=== PATIENT | male | born 1995 | race Two or more races ===

== ENCOUNTER 2019-10-19 13:01 | Inpatient (IN) | payer OTHER ==
[~2019-10-19] VITALS: Ht 167.6 cm; Wt 56.7 kg
[2019-10-19] VITALS (7 sets, daily range): BP systolic 97–135; BP diastolic 64–111
--- NOTE | 2019-10-19 13:01 | NUR ---
[facility] FOR ALOC, VENT/TRACHE. NORMALLY RESPONDS FOUND TO BE ALOC, +DIAPHORETIC., pt to bed 7, pt is vent/trache dependent, placed on monitor, +tachy, -sob, pending er provider mj
--- NOTE | 2019-10-19 13:26 | NUR ---
PT. PLACED INTO [facility] VENT VIA TRACH SIZE #7 PORTEX WITH VENT SETTINGS BELOW PER RT TRANSPORTER: AC 16 VT 500 FIO2 30% PEEP + 5 BREATH SOUNDS COARSE RHONCHI BILATERAL VENT PLUGGED INTO RED OUTLET WITH ALARMS ON AND FUNCTIONAL. LATASHA @ BEDSIDE. Addendum: 10/19/19 at 1329 by SHIVANI HUMPHREY RT Amended: Links added.
[2019-10-19] MEDS ORDERED: IV NS 0.9% 1,000 ML BAG IV ONE (13:30)
[2019-10-19 13:52] LABS: BASOPHILS # (AUTO) 0.1 /CMM (0.0-0.2); BASOPHILS % (AUTO) 0.6 % (0.0-2.0); EOSINOPHILS % (AUTO) 3.3 % (0.0-6.0); HEMATOCRIT 43 % (39-51); HEMOGLOBIN 13.8 g/dL (13.5-17.5); LYMPHOCYTES # (AUTO) 2.9 /CMM (0.8-4.8); MEAN CORPUSCULAR HGB CONC 32 g/dl (31.0-36.0); MEAN CORPUSCULAR VOLUME 90 fL (80-96); MONOCYTES # (AUTO) 0.7 /CMM (0.1-1.30); MONOCYTES % (AUTO) 4.6 % (2.0-12.0); NEUTROPHILS % (AUTO) 72.5 % (43.0-81.0); PLATELET COUNT (AUTO) 469 /CMM (150-450); WHITE BLOOD COUNT (AUTO) 15.1 K/uL (4.3-11.0)
[2019-10-19 13:59] LABS: CALCIUM, SERUM 9.5 mg/dL (8.5-10.1); CARBON DIOXIDE 22 mmol/L (21-32); CHLORIDE 98 mmol/L (98-107); CREATININE 0.4 mg/dL (0.6-1.3); GLUCOSE 221 mg/dL (74-106); POTASSIUM 4.4 mmol/L (3.5-5.1); SODIUM SERUM 135 mmol/L (136-145); UREA NITROGEN, BLOOD 28 mg/dL (7-18)
[2019-10-19] MEDS ORDERED: FERR300L GT (14:04)
[2019-10-19] MEDS ORDERED: DOCU-141 GT (14:04)
[2019-10-19] MEDS ORDERED: ACET-2605 GT (14:04)
[2019-10-19] MEDS ORDERED: MULT-447 GT (14:04)
[2019-10-19] MEDS ORDERED: POLY17PO4 GT (14:04)
[2019-10-19] MEDS ORDERED: POTA20PA3 GT (14:04)
[2019-10-19] MEDS ORDERED: MELA1TAB15 GT (14:04)
[2019-10-19] MEDS ORDERED: ACET-868 GT (14:04)
[2019-10-19] MEDS ORDERED: BISA10SU11 RC (14:04)
[2019-10-19] MEDS ORDERED: CHLO118L6 TP (14:04)
[2019-10-19] MEDS ORDERED: MAGN400O6 GT (14:04)
[2019-10-19] MEDS ORDERED: NA P133E RC (14:04)
[2019-10-19] MEDS ORDERED: HEPA50008 SQ (14:04)
[2019-10-19] MEDS ORDERED: ONDA4TAB5 GT (14:04)
[2019-10-19] MEDS ORDERED: OMEP20CA15 GT (14:04)
[2019-10-19] MEDS ORDERED: VIT500LI GT (14:04)
[2019-10-19] MEDS ORDERED: NUT.237L25 GT (14:04)
[2019-10-19] MEDS ORDERED: CHLO473M5 MM (14:04)
[2019-10-19] MEDS ORDERED: ALBU2.5V38 IH (14:04)
[2019-10-19] MEDS ORDERED: AMIN30LI27 GT (14:04)
[2019-10-19] MEDS ORDERED: IPRA3AMP23 IH (14:04)
[2019-10-19 14:12] LABS: ALANINE AMINOTRANSFERASE 110 U/L (12-78); ALBUMIN 3.4 g/dL (3.4-5.0); ALKALINE PHOSPHATASE 187 U/L (46-116); ASPARTATE AMINOTRANSFERASE 90 U/L (15-37); BILIRUBIN,DIRECT 0.1 mg/dL (0.0-0.2); BILIRUBIN,TOTAL 0.5 mg/dL (0.2-1.0)
[2019-10-19] MEDS ORDERED: PIPERACILLIN /TAZOBACTAM 3.375 G in IV D5W 50 ML IV ONE (14:30)
[2019-10-19] MEDS ORDERED: VANCOMYCIN 1 GM in IV D5W 250 ML IV ONE (14:30)
--- NOTE | 2019-10-19 14:59 | NUR ---
verbal auth from kaleb cm; ok to admit inpatient
[2019-10-19] MEDS ORDERED: IV NS 0.9% 250 ML IV ONE (15:15)
[2019-10-19] MEDS ORDERED: IOHEXOL-300 100 ML VIAL IV ONE (15:15)
[2019-10-19] MEDS ORDERED: CT SWABBABLE VALVE TRANS SET 1 EA INFUS.SET MC ONE (15:15)
--- NOTE | 2019-10-19 15:20 | NUR ---
PT TO CT
--- NOTE | 2019-10-19 15:21 | NUR ---
PAGED [facility].
[2019-10-19 15:30] LABS: BILIRUBIN,URINE Negative (NEGATIVE); BLOOD, URINE Moderate Ery/uL (NEGATIVE); COLOR,URINE Yellow (YELLOW); KETONES,URINE Negative (NEGATIVE); LEUKOCYTE ESTERASE ,URINE Large (NEGATIVE); NITRITE, URINE Positive (NEGATIVE); PROTEIN,URINE >=300 mg/dl (NEGATIVE); UGLUCOSE Negative (NEGATIVE); UROBILINOGEN,URINE 0.2 EU/dL (0.2)
[2019-10-19 15:31] LABS: APPEARANCE,URINE CLOUDY (CLEAR); PH,URINE >9.0 (5.0-8.0)
[2019-10-19 15:35] LABS: C-REACTIVE PROTEIN 1.4 mg/dL (0.0-0.9)
[2019-10-19 15:44] LABS: CALCIUM OXALATE CRYSTALS,UR Moderate /HPF (None Seen)
[2019-10-19 15:45] LABS: BACTERIA,URINE Moderate /HPF (None Seen); SQUAMOUS EPITHELIAL CELL,UR Few /HPF (None Seen); URINE AMORPHOUS PHOSPHATES Few /HPF (None Seen)
--- NOTE | 2019-10-19 15:49 | NUR ---
NURSING SUP GAVE TELE BED 118-2.
--- NOTE | 2019-10-19 15:57 | NUR ---
report given to kim leggett for macy pt will be transported to 1st floor
--- NOTE | 2019-10-19 16:47 | NUR ---
per rojelio acoustical material worker, dr jang wants pt to upgrade to icu, called nursing sup for bed
--- NOTE | 2019-10-19 17:08 | NUR ---
NURSING SUP GAVE ICU BED 252.
--- NOTE | 2019-10-19 17:44 | NUR ---
REPORT GIVEN TO ANTONIO ALVARENGA FOR LLUVIA; PT WILL BE TRANSPORTED TO ICU
--- NOTE | 2019-10-19 18:19 | NUR ---
PT TRANSPORTED ICU
--- NOTE | 2019-10-19 18:30 | NUR ---
received pt from ER, AMS, does not follow commands, ST, on the vent, R lung 70% pneumothorax, SOB, no edema, GT clamped, f/c good output, no wounds, v/s stable, no pain, pt cleaned, changed and repositioned.
--- NOTE | 2019-10-19 19:10 | NUR ---
R chest tube inserted by Dr Fisher, connected to suction, xray called.
--- NOTE | 2019-10-19 19:15 | NUR ---
RN OPENING NOTES RECEIVED PT ON BED ASLEEP EASILY AROUSABLE, ON VENT/TRACH SETTING PER MD TOLERATED WELL NO SIGN AND SYMPTOMS OF RESPIRATORY DISTRESS, SPO2 98%, WITH PLEURAVAC CHEST TUBE ON R LAT CHEST CONNECTED TO SUCTION @ 20mmHg NO LEAKAGE OR BUBBLING NOTED, WITH GTUBE ON PLACED PATENT,AND ON PLACE, CONNECTED TO PLANNING ANALYST WITH READING SINUS TACH 110'S, WITH IV #20 ON L AC PATENT AND FLUSHED WELL NO INFILTRATION NOTED ON DROPLET ISOLATION R/O COVID PENDING RESULTS, V/S WNL, SAFETY MEASURE MAINTAINED BED ON LOWEST POSITION AND LOCKED SIDE RAILS UP X 3 CALL LIGHT WITHIN REACH WILL CONT TO MONITOR THE PT
--- NOTE | 2019-10-19 19:32 | NUR ---
RT NOTE PT RECEIVED TRACH'D WITH PORTEX 7 ON MECHANICAL VENT. PATIENT IS TOLERATING CURRENT ORDERED SETTINGS WITHOUT RESPIRATORY DISTRESS NOTED. TRACH IS PATENT AND SECURE. ALARMS ARE SET AND AUDIBLE. MECHANICAL VENT IS PLUGGED INTO RED OUTLET. EMERGENCY EQUIPMENT IS AT PATIENT BEDSIDE. WILL CONTINUE TO MONITOR. Addendum: 10/19/19 at 2044 by CHAYA MÉNDEZ RT Amended: Links added.
[2019-10-19] MEDS ORDERED: FEE PK DOSING 1 MIN EA MC ONE (19:57)
--- NOTE | 2019-10-19 20:15 | NUR ---
RN NOTES NOTICED PT HR INCREASED TO 150'S AND PT IS GRIMACING, SUSPECTED PAIN, CALLED PAINT ROLLER COVER MACHINE SETTER AMY LOUIS NP AND INFORMED HIM ABOUT THE PT WITH ORDER FOR PAIN MEDS NOTED AND CARRIED OUT
[2019-10-19 20:31] LABS: ABG BASE EXCESS -0.8 mmol/L; ABG OXYGEN SATURATION 97.2 % (92.0-98.5); ABG PH 7.434 (7.350-7.450); ABG PO2 100.9 mmHg (75.0-100.0); AaDO2 71.9 mmHg; COHb 0.2 % (0.5-1.5); MetHb 0.5 % (0.0-1.5); O2Hb 96.5 % (94.0-97.0); SITE, ABG Left Radial
[2019-10-19] MEDS: MORPHINE SULFATE INJ 2 MG/ML DISP.SYRIN IV PRN (20:34)
--- NOTE | 2019-10-19 21:20 | NUR ---
PATIENT ACCOUNT REPRESENTATIVE NOTES CRITICAL LAB RESULTS TROPONIN I 8.353 TRENDING UP LACTIC ACID 2.2 RELAYED TO DONATION SPECIALIST AMY LOUIS VISUAL STYLIST WITH ORDER MADE AND CARRIED OUT
--- NOTE | 2019-10-19 21:45 | NUR ---
TRACK INSPECTING SUPERVISOR NOTES HEPARIN STARTED WITH 2800 UNITS BOLUS AND HEPARIN DRIP 600 UNIT/HR INITIAL PTT 24.8 SECS
[2019-10-19] MEDS ORDERED: IV NS 0.9% 1,000 ML IV PRN (22:00)
[2019-10-19] MEDS ORDERED: HEPARIN INFUSION/D5W 500 ML IV PRN (22:00)
[2019-10-19] MEDS ORDERED: HEPARIN INFUSION/D5W 500 ML IV ONE (22:08)
[2019-10-19] MEDS: ASPIRIN EC 81 MG TABLET.DR PO SCH (22:14)
[2019-10-19] MEDS: CARVEDILOL 6.25 MG TABLET GT SCH (22:15)
[2019-10-19] MEDS: PIPERACILLIN /TAZOBACTAM 3.375 G in IV D5W 50 ML IV SCH (22:15)
[2019-10-19] MEDS ORDERED: HEPARIN SODIUM, PORCINE 5000 UNITS/1 ML VIAL IV ONE (22:30)
[2019-10-20] VITALS (43 sets, daily range): BP systolic 84–133; BP diastolic 47–101
[2019-10-20] MEDS: IV NS 0.9% 1,000 ML IV PRN ×2 (00:10→15:49)
[2019-10-20] MEDS: VANCOMYCIN 1.25 GM in IV D5W 250 ML IV SCH ×3 (00:10→16:00)
--- NOTE | 2019-10-20 00:15 | NUR ---
RN NOTES CRITICAL LAB VALUE TROPONIN I 6.805 WAS RELAYED TO COUNTY SHERIFF AMY LOUIS NP, TRENDING DOWN FROM 8.353 WITH NO NEW ORDER
[2019-10-20 04:35] LABS: BASOPHILS # (AUTO) 0.1 /CMM (0.0-0.2); BASOPHILS % (AUTO) 0.3 % (0.0-2.0); HEMATOCRIT 32 % (39-51); HEMOGLOBIN 10.6 g/dL (13.5-17.5); LYMPHOCYTES # (AUTO) 0.8 /CMM (0.8-4.8); LYMPHOCYTES % (AUTO) 4.4 % (20.0-44.0); MEAN CORPUSCULAR HGB CONC 33 g/dl (31.0-36.0); MEAN CORPUSCULAR VOLUME 89 fL (80-96); MONOCYTES # (AUTO) 0.7 /CMM (0.1-1.30); MONOCYTES % (AUTO) 4.1 % (2.0-12.0); NEUTROPHILS # (AUTO) 16.4 /CMM (1.8-8.9); NEUTROPHILS % (AUTO) 91.2 % (43.0-81.0); PLATELET COUNT (AUTO) 290 /CMM (150-450); RED BLOOD CELL COUNT(AUTO) 3.62 MIL/uL (4.5-6.0)
[2019-10-20 04:44] LABS: CALCIUM, SERUM 8.8 mg/dL (8.5-10.1); CREATININE 0.3 mg/dL (0.6-1.3)
--- NOTE | 2019-10-20 04:45 | NUR ---
RN NOTES NOTICE THAT THERES A BLOODY SECRETION SUCTIONED TO THE TRACH OF THE PT AROUND 50ML FRESH BLOOD, METAL ROOFER HERIBERTO REYES WEB MARKETING COORDINATOR NOTIFY WITH ORDERS TO HOLD HEPARIN DRIP UNTIL FURTHER ORDERS NOTED AND CARRIED OUT
[2019-10-20] MEDS ORDERED: ACETAMINOPHEN 650 MG/20.3 ML UDC GT PRN (05:30)
[2019-10-20] MEDS: MORPHINE SULFATE INJ 2 MG/ML DISP.SYRIN IV PRN (05:42)
[2019-10-20] MEDS: PIPERACILLIN /TAZOBACTAM 3.375 G in IV D5W 50 ML IV SCH ×3 (05:43→17:06)
--- NOTE | 2019-10-20 06:15 | NUR ---
RN NOTES TALK TO MERCHANDISING ASSISTANT AMY LOUIS REGARDING THE HEPARIN DRIP OF THE PT HE SAID TO RESTART IT AND FOLLOW PROTOCOL, PTT 35.9, HEPARIN DRIP TO BE RUN @ 700UNITS/HR NOTED AND CARRIED OUT Addendum: 10/20/19 at 0636 by DALILA JOYCE RN AMY LOUIS VERIFICATION CLERK AWARE THAT THERES STILL A MINIMAL BLEEDING ON PT TRACH
--- NOTE | 2019-10-20 06:44 | NUR ---
RN CLOSING NOTES PT SLEEPING ON BED NO SIGN AND SYMPTOMS OF RESPIRATORY DISTRESS, SPO2 98% ON TRACH/VENT SETTING PER MD, CHEST TUBE IS ON PLACE NO LEAKAGE NOTED CONNECTED TO SUCTION @ 20 mmHg with SEROSANGUINOS DRAINAGE @ 50ML, ON HEPARIN DRIP @ 700UNIT/HR, ON TELE WITH READING SINUS TACHY 90'S-110'S DROPLET ISOLATION MAINTAINED AND OBSERVED SAFETY PRECAUTION MAINTAINED BED ON LOWEST POSITION AND LOCKED CALL LIGHT WITHIN REACH, SIDE RAILS UP X3, ALL NEEDS ATTENDED WILL ENDORSE TO AM SHIFT NURSE
[2019-10-20] MEDS: CARVEDILOL 6.25 MG TABLET GT SCH ×2 (08:02→21:41)
[2019-10-20] MEDS: ASPIRIN EC 81 MG TABLET.DR PO SCH (08:03)
[2019-10-20 08:14] LABS: ABG BASE EXCESS -0.7 mmol/L; ABG OXYGEN SATURATION 97.6 % (92.0-98.5); ABG PCO2 31.7 mmHg (35.0-45.0); ABG PH 7.468 (7.350-7.450); ABG PO2 108.7 mmHg (75.0-100.0); COHb 0.3 % (0.5-1.5); MetHb 0.5 % (0.0-1.5); O2Hb 96.8 % (94.0-97.0); PEEP,BG 5 cm H2O; SITE, ABG Right Radial; VENT MODE, BG AC 16 500; VT, ABG 500 mL
[2019-10-20] MEDS ORDERED: POTASSIUM CHLORIDE 20 MEQ POWDER PACKET GT SCH (08:30)
[2019-10-20 09:13] LABS: THYROID STIMULATING HORMONE 0.561 uIU/mL (0.358-3.74)
--- NOTE | 2019-10-20 09:29 | NUR ---
received pt from shift leader, lethargic, ST, SR, on the vent, lungs congested no edema, R chest tube no leak noted, NPO, f/c good output, GT clamped, on heparin drip at 700unit, some blood from the trach, Dr Moore is aware still OK to continue heparin drip, v/s stable, no pain, pt turned and repositioned.
[2019-10-20] MEDS: ACETAMINOPHEN 650 MG/20.3 ML UDC NG PRN (15:50)
--- NOTE | 2019-10-20 16:33 | NUR ---
RT NOTE: PATIENT RECEIVED WITH #7 PORTEX TRACH ON MECHANICAL VENT. ALARMS VERIFIED AND AUDIBLE. SUCTIONED MODERATE-LARGE AMOUNT OF THIN BLOODY SECRETIONS. RN(KIM) AWARE. VENT PLUGGED INTO RED OUTLET. AMBU BAG AT [facility].
--- NOTE | 2019-10-20 16:36 | NUR ---
pt is resting in the bed, drowsy, ST, SR, on the vent, sat well, no edema, R chest tube bloody residual, heparin drip stopped per MD, f/c OK output, v/s stable, no pain, covid 19 negative, pt cleaned, changed and repositioned.
--- NOTE | 2019-10-20 19:00 | NUR ---
Received patient with tracheostomy to the ventilator on AC mode,not in any distress.Patient awake,but does not seem to understand and does not follow commands.Contracted extremities ,but moves both arms but weak , lower extremities twisted/contracted. Chest tube @ right lateral chest to Pleurovac to suction , with serous drainage,chest tube site noted with bleeding ,dressing saturated with blood. (Patient was on Heparin drip, already discontinued). Will continue to monitor chest tube site.
[2019-10-20] MEDS ORDERED: CELLULOSE,OXIDIZED 1 EACH EACH MC PRN (20:00)
--- NOTE | 2019-10-20 22:00 | NUR ---
Noted occasional episodes of tachycardia 120's-130's ,but converts back to SR in the 90's(not sustaining)
[2019-10-21] VITALS (25 sets, daily range): BP systolic 80–126; BP diastolic 42–94
--- NOTE | 2019-10-21 | NUR ---
STATU UNCHANGED.CHETS TUBE SITE STILL WITH BLEEDING,SURGICEL APPLIED.
[2019-10-21] MEDS: PIPERACILLIN /TAZOBACTAM 3.375 G in IV D5W 50 ML IV SCH ×4 (00:32→17:40)
--- NOTE | 2019-10-21 04:00 | NUR ---
STABLE,AWAKE.NOT IN ANY DISTRESS.AM BATH DONE,CHEST TUBE DRESSING CHANGED,STILL WITH BLEDING AT CHEST TUBE INSERTION SITE,SURGICEL/HEMOSTAT APPLIED.
[2019-10-21 04:34] LABS: BASOPHILS # (AUTO) 0.1 /CMM (0.0-0.2); BASOPHILS % (AUTO) 0.5 % (0.0-2.0); EOSINOPHILS % (AUTO) 0.2 % (0.0-6.0); HEMATOCRIT 28 % (39-51); LYMPHOCYTES # (AUTO) 0.8 /CMM (0.8-4.8); LYMPHOCYTES % (AUTO) 6.5 % (20.0-44.0); MEAN CORPUSCULAR HGB CONC 33 g/dl (31.0-36.0); MEAN CORPUSCULAR VOLUME 90 fL (80-96); MONOCYTES # (AUTO) 0.8 /CMM (0.1-1.30); MONOCYTES % (AUTO) 6.2 % (2.0-12.0); NEUTROPHILS # (AUTO) 11.3 /CMM (1.8-8.9); NEUTROPHILS % (AUTO) 86.6 % (43.0-81.0); PLATELET COUNT (AUTO) 259 /CMM (150-450); RED BLOOD CELL COUNT(AUTO) 3.06 MIL/uL (4.5-6.0)
[2019-10-21 04:45] LABS: ALBUMIN 2.7 g/dL (3.4-5.0); BILIRUBIN,DIRECT 0.2 mg/dL (0.0-0.2); BILIRUBIN,TOTAL 1.1 mg/dL (0.2-1.0); CALCIUM, SERUM 8.7 mg/dL (8.5-10.1); CREATININE 0.6 mg/dL (0.6-1.3); MAGNESIUM 2.2 mg/dL (1.8-2.4); PHOSPHORUS 5.7 mg/dL (2.5-4.9); POTASSIUM 4.6 mmol/L (3.5-5.1); TOTAL PROTEIN, SERUM 7.2 g/dL (6.4-8.2)
[2019-10-21] MEDS: IV NS 0.9% 1,000 ML IV PRN (05:54)
--- NOTE | 2019-10-21 07:00 | NUR ---
REMAINS STABLE,REPORT GIVEN TO ANTONIO ALVARENGA
--- NOTE | 2019-10-21 08:14 | NUR ---
received pt from night filler, alert, does not follows commands, non verbal, SR, ST, chronic V/T, R chest tube, pneumothorax resolved, sat well, f/c OK output, GT clamped, v/s stable, no pain, pt turned and repositioned.
[2019-10-21] MEDS: ENOXAPARIN SODIUM 40 MG/0.4 ML DISP.SYRIN SQ SCH (08:27)
[2019-10-21] MEDS: CARVEDILOL 6.25 MG TABLET GT SCH ×2 (08:28→22:08)
[2019-10-21] MEDS: ASPIRIN EC 81 MG TABLET.DR PO SCH (08:28)
--- NOTE | 2019-10-21 11:15 | NUR ---
pt transferred to [facility], ACLS followed, v/s stable, no pain, report given to
--- NOTE | 2019-10-21 11:30 | NUR ---
[facility] RN Notes Received patient from ICU transfer. Patient in stable condition. Chest tube to wall suction -20mmHg on the chest tube. Serosanguineous discharge. No crepitus on palpation. Connected to vent. Assist control 16 TV 450mL FIO2 3-% PEEP 5. Patient is sinus tach. G-Tube clamped. NPO c Meds. Skin intact. IV RAC 20g and LAC 20g, flushing well and patient. NS 0.9% at 80mL per hour. Will continue to monitor.
--- NOTE | 2019-10-21 19:00 | NUR ---
[facility] RN Notes Patient is in bed resting comfortably. No signs of distress. Informed provider of tachycardia 130s 140s. Recieved order from Wilver Lazcano to increase IV fluid rate to 100mL per hour. Glucose check to r/o tachycardia cause was 81mg/dL WNL. Afebrile 98.2. Pharmacy holding vanco due to elevated trough of 26. No additional CT OP. To be endorsed to night auditor.
--- NOTE | 2019-10-21 22:08 | NUR ---
TELE-TD/CAREER DEVELOPMENT CONSULTANT ASSISTED PT WITH FACETIME CALL WITH HIS FAMILY. FAMILY SPOKE WITH THE PT BRIEFLY. THEN CALLED ME AT THE NURSES STATION TO LET ME KNOW THAT HE ISN'T AT THE BASELINE ORIENTATION. I DISCUSSED WITH THE FAMILY MY PREVIOUS ASSESSMENT OF THE PT AND HIS CURRENT BASELINE. I PAGED TO GIVE UPDATE BASED ON FAMILIES CONCERN. WILL CONTINUE TO MONITOR.
[2019-10-22] VITALS (8 sets, daily range): BP systolic 95–125; BP diastolic 51–75
[2019-10-22] MEDS: PIPERACILLIN /TAZOBACTAM 3.375 G in IV D5W 50 ML IV SCH ×4 (00:11→17:41)
[2019-10-22] MEDS: IV NS 0.9% 1,000 ML IV PRN ×2 (01:52→06:15)
--- NOTE | 2019-10-22 04:46 | NUR ---
RT NOTE Pt rec'd trached on [facility] vent on AC mode settings as charted. pt shows no signs of resp distress or sob. trach is patent and secured. sx'd for thick small amt of blood tinged secretions. alarms are set and audible. vent plugged into red outlet. Ambu bag bedside. Will continue to monitor closely. Addendum: 10/22/19 at 0447 by LATANYA EUCEDA RT Amended: Links added.
[2019-10-22] MEDS ORDERED: PIPERACILLIN /TAZOBACTAM 3.375 G VIAL IV ONE (05:15)
[2019-10-22 08:44] LABS: BASOPHILS % (AUTO) 0.1 % (0.0-2.0); HEMATOCRIT 30 % (39-51); HEMOGLOBIN 9.8 g/dL (13.5-17.5); LYMPHOCYTES # (AUTO) 0.7 /CMM (0.8-4.8); LYMPHOCYTES % (AUTO) 3.9 % (20.0-44.0); MEAN CORPUSCULAR HGB CONC 33 g/dl (31.0-36.0); MEAN CORPUSCULAR VOLUME 90 fL (80-96); MONOCYTES # (AUTO) 1.4 /CMM (0.1-1.30); MONOCYTES % (AUTO) 7.3 % (2.0-12.0); NEUTROPHILS # (AUTO) 16.7 /CMM (1.8-8.9); NEUTROPHILS % (AUTO) 88.7 % (43.0-81.0); PLATELET COUNT (AUTO) 366 /CMM (150-450); WHITE BLOOD COUNT (AUTO) 18.9 K/uL (4.3-11.0)
[2019-10-22 08:46] LABS: CALCIUM, SERUM 9.6 mg/dL (8.5-10.1); CREATININE 0.7 mg/dL (0.6-1.3); MAGNESIUM 2.3 mg/dL (1.8-2.4); PHOSPHORUS 5.6 mg/dL (2.5-4.9); POTASSIUM 3.5 mmol/L (3.5-5.1)
[2019-10-22 09:05] LABS: ALBUMIN 2.8 g/dL (3.4-5.0); BILIRUBIN,DIRECT 0.3 mg/dL (0.0-0.2); BILIRUBIN,TOTAL 1.1 mg/dL (0.2-1.0); TOTAL PROTEIN, SERUM 7.7 g/dL (6.4-8.2)
[2019-10-22] MEDS: ASPIRIN EC 81 MG TABLET.DR PO SCH (09:37)
[2019-10-22] MEDS: CARVEDILOL 6.25 MG TABLET GT SCH ×2 (09:38→21:13)
[2019-10-22] MEDS: ENOXAPARIN SODIUM 40 MG/0.4 ML DISP.SYRIN SQ SCH (09:42)
[2019-10-22] MEDS ORDERED: VANCOMYCIN 1 GM in IV D5W 250 ML IV SCH (11:00)
[2019-10-22] MEDS ORDERED: CEFEPIME 1 GM in IV D5W 50 ML IV SCH (19:30)
--- NOTE | 2019-10-22 20:00 | NUR ---
[facility] RN Note: Pt A/O X1 to person, but non-verbal. Tracks with eyes. Patient in stable condition. Chest tube to wall suction -20mmHg on the chest tube. Serosanguineous discharge. No crepitus on palpation. PORTEX #7 Trach connected to vent. Assist control: 16; TV: 450mL; FIO2: 30%; PEEP: 5. Noted ST on athletic monitor with VH=267. G-Tube clamped. No residual noted. NPO. Skin intact. PIV to Right AC: 20 gauge and Left FA 20 gauge, both flushing well and patent. No distress noted. ALL safety precautions in place. Monitoring continued.
--- NOTE | 2019-10-22 20:03 | NUR ---
RT NOTE Pt rec'd trached on [facility] vent on AC mode settings as charted. pt shows no signs of resp distress or sob. trach is patent and secured. sx'd for thick small amt of blood tinged secretions. alarms are set and audible. vent plugged into red outlet. Ambu bag bedside. Will continue to monitor closely. Addendum: 10/22/19 at 2004 by LATANYA EUCEDA RT Amended: Links added.
--- NOTE | 2019-10-22 21:30 | NUR ---
[facility] RN NOTE: Assisted pt with Facetime call with his family. Family spoke with patient for about an hour. Multiple family members called this nurse. Spoke with Pt's mother briefly, but informed her that no one here is fluent in [place]. Also spoke with pt's aunt and notified her that I spoke with pt's brother, Nba, re: update of pt's care. Nba gave this nurse the code to pt's iPAD: 1026. Nba notified this nurse that pt's mouth is not usually wide open and pt's arms are not usually flaccid. bNa also notified this nurse that he and his family has been trying to speak with the Doctor all day re: the reason why pt is not at baseline re: body movements, but MD did not respond. Discussed with family this nurse's current assessment of pt and that this nurse notified Charge nurse of the same and will strongly encourage MD to speak with Family tomorrow morning re: family's concerns. Pt care and Monitoring continued.
[2019-10-22] MEDS ORDERED: CEFEPIME 1 GM VIAL ONE (23:29)
[2019-10-23] VITALS (7 sets, daily range): BP systolic 95–138; BP diastolic 51–80
[2019-10-23 06:39] LABS: BASOPHILS % (AUTO) 0.3 % (0.0-2.0); EOSINOPHILS % (AUTO) 0.1 % (0.0-6.0); HEMATOCRIT 28 % (39-51); LYMPHOCYTES % (AUTO) 6.6 % (20.0-44.0); MEAN CORPUSCULAR HGB CONC 33 g/dl (31.0-36.0); MEAN CORPUSCULAR VOLUME 89 fL (80-96); MONOCYTES # (AUTO) 1.2 /CMM (0.1-1.30); MONOCYTES % (AUTO) 7.8 % (2.0-12.0); NEUTROPHILS # (AUTO) 12.6 /CMM (1.8-8.9); NEUTROPHILS % (AUTO) 85.2 % (43.0-81.0); PLATELET COUNT (AUTO) 387 /CMM (150-450); RED BLOOD CELL COUNT(AUTO) 3.11 MIL/uL (4.5-6.0); WHITE BLOOD COUNT (AUTO) 14.7 K/uL (4.3-11.0)
[2019-10-23 07:07] LABS: CALCIUM, SERUM 9.2 mg/dL (8.5-10.1); CREATININE 0.6 mg/dL (0.6-1.3); PHOSPHORUS 4.2 mg/dL (2.5-4.9)
--- NOTE | 2019-10-23 07:30 | NUR ---
[facility] RN Note: Pt remains A/O X1 to person, but non-verbal. Pt tries to move mouth to mouth words. Tracks with eyes. Patient in stable condition. Chest tube to wall suction -20mmHg on the chest tube. Only 5 cc output for this shift (serosanguineous drainage). No crepitus on palpation during shift. PORTEX #7 Trach connected to vent. Assist control: 16; TV: 450mL; FIO2: 30%; PEEP: 5. Noted SR on cardiac cath technician with HR=95. G-Tube remains clamped. No residual noted. Pt remains NPO. Skin intact. Pt turned and repositioned every 2 hours. Pt had small loose BM. Pt cleaned. Linens changed. PIV to Right AC: 20 gauge and Left FA 20 gauge, both remain flushing well and patent. No distress noted during shift. ALL safety precautions maintained during shift. Pt safety maintained during shift. SBAR report given to LYLE Bello for continuity of care.
[2019-10-23 07:50] LABS: POTASSIUM 2.2 mmol/L (3.5-5.1)
--- NOTE | 2019-10-23 08:00 | NUR ---
technician telecommunication systems notes Received patient alert and awake, non-verbal. patient has trach to vent setting , ambu bag at bedside. On tele monitor, ST, HR-107. Right side chest tube in place with light bloody daring on Lovenox and asa ,dr noyola notified , lt ac ,stated ok to give both , also aware that k2.2 will give order for k , patient with g tube clumped no residual noted , Left AC and left FA HL intact, flushes well but noted with swelling, will keep elevated. Bed in lowest position. All needs attende d. Will cont to monitor
[2019-10-23] MEDS: ASPIRIN EC 81 MG TABLET.DR PO SCH (08:12)
[2019-10-23] MEDS: CARVEDILOL 6.25 MG TABLET GT SCH ×2 (08:12→21:47)
[2019-10-23] MEDS: ENOXAPARIN SODIUM 40 MG/0.4 ML DISP.SYRIN SQ SCH (08:13)
[2019-10-23] MEDS: POTASSIUM CHLORIDE 20 MEQ POWDER PACKET NG SCH ×6 (08:37→13:43)
[2019-10-23] MEDS: CEFEPIME 2 GM in IV D5W 100 ML IV SCH ×2 (08:39→21:47)
--- NOTE | 2019-10-23 10:27 | NUR ---
telephone betting clerk note chest x arlette done as ordered
--- NOTE | 2019-10-23 11:38 | NUR ---
telephone interceptor operator note new mid line on rt upper arm ray 18 inserted by picc line nurse
--- NOTE | 2019-10-23 12:24 | NUR ---
newspaper subscription solicitor nurse Spoke with ADELE Weeks aware that G-tube site is leaking and OK to hold off feeding. LOSS PREVENTION MANAGER aware that bloody drainage in chest tube. left upper arm swelling stated that will order doppler ultrasound. Potassium 2.2 and replacement been given. Pleural fluid results reported to LOSS PREVENTION MANAGER. will cont to monitor
[2019-10-23] MEDS: VANCOMYCIN 1 GM in IV D5W 250 ML IV SCH (15:05)
[2019-10-23] MEDS: METOCLOPRAMIDE HCL 10 MG TABLET PO SCH (17:07)
--- NOTE | 2019-10-23 18:30 | NUR ---
senior telecommunications consultant note resting comfortably all needs attended, with trach to vent setting as ordered with ches tube to wall suction will cont to monitor
--- NOTE | 2019-10-23 19:30 | NUR ---
radiotelegraph operator servicer notes, Received patient with eyes open at this time, non-verbal, on mechanical ventilator tolerated settings well, no sob/acute distress noted, nsr on tele monitor, with hr 80s at this time, Right side chest tube in place with light bloody, md aware, gtube in placed, clumped no residual noted, npo exept meds via gt, no feeding at this time, moderate drainage noted at gt site, lisa midline in placed patent and intact, left arm swelling, positioned and elevated, Bed locked and lowest position, All needs provided, Will cont to monitor closely.
--- NOTE | 2019-10-23 20:54 | NUR ---
PT RECEIVED ON CURRENT SETTINGS WITH NO SIGNS OF RESPIRATORY DISTRESS AT THIS TIME. AIRWAY IS PATENT AND SECURE WITH NO SOB NOTED. VENT IS PLUGGED IN TO RED OUTLET WITH ALARMS ON AND AUDIBLE. SUCTION PT NEEDED. WILL CONTINUE TO MONITOR. Addendum: 10/23/19 at 2054 by DALILA LAI RT Amended: Links added.
[2019-10-24] VITALS: BP 101/63
[2019-10-24] MEDS: METOCLOPRAMIDE HCL 10 MG TABLET PO SCH ×5 (00:04→23:16)
--- NOTE | 2019-10-24 01:50 | NUR ---
RN NOTES, INFORMED HERIBERTO HOME CARE COORDINATOR THAT PATIENT HR IS BEING 80S SINCE BEGINNING OF SHIFT AND NOW IS JUMPING FROM 80S TO 110-120S AND BACK TO 80-90S, MD REPLIED WITH ORDER TO DO CHEST X-RAY IN THE MORNING, PATIENT ALREADY WITH CHEST X-RAYS SCHEDULED IN AM, WILL CONTINUE TO MONITOR CLOSELY.
[2019-10-24 04:00] VITALS: BP 105/59
--- NOTE | 2019-10-24 06:16 | NUR ---
telemedicine physician notes, patient sleeping at this time non-verbal, on mechanical ventilator tolerated settings well, no sob/acute distress noted, nsr on tele monitor, with hr 80s at this time, with episodes of hr jumping to 110s-120s luciano computer numeric control setter aware with orders for chest xray this morning, Right side chest tube in place with light bloody, md aware, no residual for chest tube, gtube in placed, clumped no residual noted, npo except meds via gt, slightly drainage noted at site, lisa midline in placed patent and intact, no significant Change in condition during the night, Bed locked and lowest position, All needs provided, Will endorse continuity of care to oncoming nurse.
[2019-10-24] MEDS: MORPHINE SULFATE INJ 2 MG/ML DISP.SYRIN IV PRN ×2 (06:29→17:01)
--- NOTE | 2019-10-24 06:30 | NUR ---
RN NOTES, PATIENT NOTED WITH HR JUMPING TO 130S AND BACK TO 110S, UPON ASSESSMENT, NOTED PATENTS WITH FACIAL GRIMACING, MORPHINE ADMINISTERED FOR PAIN, WILL CONT TO MONITOR, AND ENDORSED TO ONCOMING NURSE.
[2019-10-24 06:33] LABS: BASOPHILS # (AUTO) 0.1 /CMM (0.0-0.2); BASOPHILS % (AUTO) 0.3 % (0.0-2.0); EOSINOPHILS % (AUTO) 0.2 % (0.0-6.0); HEMATOCRIT 30 % (39-51); HEMOGLOBIN 9.7 g/dL (13.5-17.5); LYMPHOCYTES # (AUTO) 1.1 /CMM (0.8-4.8); LYMPHOCYTES % (AUTO) 7.6 % (20.0-44.0); MEAN CORPUSCULAR HGB CONC 33 g/dl (31.0-36.0); MEAN CORPUSCULAR VOLUME 89 fL (80-96); MONOCYTES # (AUTO) 1.1 /CMM (0.1-1.30); MONOCYTES % (AUTO) 7.5 % (2.0-12.0); NEUTROPHILS # (AUTO) 12.4 /CMM (1.8-8.9); NEUTROPHILS % (AUTO) 84.4 % (43.0-81.0); PLATELET COUNT (AUTO) 408 /CMM (150-450); RED BLOOD CELL COUNT(AUTO) 3.33 MIL/uL (4.5-6.0); WHITE BLOOD COUNT (AUTO) 14.8 K/uL (4.3-11.0)
[2019-10-24 06:43] LABS: ALBUMIN 2.7 g/dL (3.4-5.0); BILIRUBIN,TOTAL 0.8 mg/dL (0.2-1.0); CALCIUM, SERUM 9.6 mg/dL (8.5-10.1); CREATININE 0.5 mg/dL (0.6-1.3); MAGNESIUM 1.9 mg/dL (1.8-2.4); PHOSPHORUS 3.1 mg/dL (2.5-4.9); POTASSIUM 3.4 mmol/L (3.5-5.1); TOTAL PROTEIN, SERUM 7.7 g/dL (6.4-8.2)
--- NOTE | 2019-10-24 07:42 | NUR ---
RN OPENING NOTE: RECEIVED PATIENT IN BED THIS MORNING. PATIENT IS NON-VERBAL, ON VENT, TOLERATING SETTINGS WELL. NO SIGNS OF RESPIRATORY DISTRESS NOTED. NO SIGNS OF ACUTE DISTRESS NOTED. PATIENT IS ON TELE MONITOR, SINUS TACHY 100. PATIENT HAS A CHEST TUBE ON LIGHT CHEST D/T PNEUMOTHORAX, NO SIGNS OF COMPLICATIONS NOTED, WILL CONTINUE TO MONITOR SITE AND DRAINAGE. PATIENT HAS GT, CLAMPED, NO FEEDING D/T NPO STATUS EXCEPT MEDS, CONTINUE TO MONITOR LEAK. CHRISTOPHER MIDLINE, C/D/I, FLUSHES WELL, NO SIGNS OF COMPLICATIONS NOTED. EDEMA NOTED ON L ARM, EXTREMITY ELEVATED. SAFETY MEASURES IMPLEMENTED, BED IN LOWEST POSITION, LOCKED, SIDE RAILS UP, CALL LIGHT WITHIN REACH. WILL CONTINUE TO MONITOR PATIENT FOR CHANGES.
[2019-10-24 08:00] VITALS: BP 110/78
[2019-10-24] MEDS: ASPIRIN EC 81 MG TABLET.DR PO SCH (08:54)
[2019-10-24] MEDS: CEFEPIME 2 GM in IV D5W 100 ML IV SCH ×2 (08:54→20:15)
[2019-10-24] MEDS: ENOXAPARIN SODIUM 40 MG/0.4 ML DISP.SYRIN SQ SCH (08:55)
[2019-10-24] MEDS: CARVEDILOL 6.25 MG TABLET GT SCH ×2 (09:10→21:42)
[2019-10-24] MEDS ORDERED: BISACODYL SUPP (10 MG) 10 MG/SUPP.RECT SUPP.RECT RC PRN (09:30)
[2019-10-24] MEDS ORDERED: POTASSIUM CHLORIDE 20 MEQ TAB.PRT.SR PO ONE (09:30)
[2019-10-24] MEDS ORDERED: MISCELLANEOUS MED 1 EA EA GT PRN (09:30)
[2019-10-24] MEDS ORDERED: POLYETHYLENE GLYCOL 3350 17 GM POWD.PACK GT PRN (09:30)
[2019-10-24] MEDS ORDERED: ACETAMINOPHEN 325 MG TABLET PO PRN (09:30)
[2019-10-24] MEDS ORDERED: TWOCAL HN 1,000 ML LIQUID GT SCH (09:30)
[2019-10-24] MEDS ORDERED: ONDANSETRON 4 MG TAB.RAPDIS GT PRN (10:00)
[2019-10-24 12:00] VITALS: BP_SYST 114; BP_SYST 129; BP_DIAS 66; BP_DIAS 72
--- NOTE | 2019-10-24 12:03 | NUR ---
PATIENT WENT TO CT AND CAME BACK. NO SIGNS OF ACUTE DISTRESS NOTED. PATIENT IS CURRENTLY IN BED RIGHT NOW. TASHA AWARE. WILL CONTINUE TO MONITOR PATIENT.
--- NOTE | 2019-10-24 12:04 | NUR ---
INFORMED ADELE CORDOVA TO REVIEW MED RECON AND CONTACT PATIENT'S BROTHER GEOFF ADAM [phone]. Addendum: 10/24/19 at 1922 by JANES LOWERY RN MD TASHA IS AWARE OF PATIENT'S LEAKING GT. WERE AWAITING GI CONSULT.
[2019-10-24] MEDS ORDERED: POTASSIUM CHLORIDE 20 MEQ POWDER PACKET NG SCH (12:30)
[2019-10-24] MEDS: PROSOURCE / PROSTAT (PYXIS) 30 ML UDC GT SCH (12:48)
[2019-10-24] MEDS: VANCOMYCIN 1 GM in IV D5W 250 ML IV SCH (13:00)
[2019-10-24 16:00] VITALS: BP 130/79
[2019-10-24] MEDS: CHLORHEXIDINE GLUCONATE 15 ML UDC MM SCH (17:01)
--- NOTE | 2019-10-24 19:09 | NUR ---
RN CLOSING NOTE: PATIENT REMAINS IN BED. NO SIGNS OF RESPIRATORY DISTRESS NOTED. NO SIGNS OF ACUTE DISTRESS NOTED. PATIENT IS ON TELE MONITOR, SINUS TACHY 120. NO SIGNS OF ACUTE DISTRESS NOTED. SAFETY MEASURES IMPLEMENTED, BED IN LOWEST POSITION, LOCKED, SIDE RAILS UP, CALL LIGHT WITHIN REACH. WILL ENDORSE TO ONCOMING RN FOR CONTINUITY OF CARE.
--- NOTE | 2019-10-24 19:35 | NUR ---
telecommunications officer notes, Received patient sleeping this time, non-verbal, on mechanical ventilator tolerated settings well, no sob/acute distress noted, no s/s of pain or disconfort, no facial grimacing noted, sinus tachy on tele monitor, with hr in 120s at this time, Right side chest tube in place with light bloody, md aware, gtube in placed, clumped no residual noted, npo exept meds via gt, no feeding at this time, slightly drainage noted at gt site, lisa midline in placed patent and intact, Bed locked and in lowest position, well repositioned, will cont to monitor patient closely.
[2019-10-24 20:00] VITALS: BP 95/58
[2019-10-24] MEDS: ACETAMINOPHEN 650 MG/20.3 ML UDC NG PRN (20:14)
[2019-10-24] MEDS ORDERED: HEPARIN SODIUM, PORCINE 5000 UNITS/1 ML VIAL SQ SCH (21:00)
[2019-10-24] MEDS ORDERED: Medication Not On Formulary EA (Melatonin/Pyridoxine Hcl (Melatonin 1 Mg Tablet) 1 EACH) GT SCH (22:00)
--- NOTE | 2019-10-24 22:00 | NUR ---
RN NOTES, PATIENT ON MECH VENT WITH 97-100% O2 SAT LEVEL, TOLERATED SETTINGS WELL.
[2019-10-25] VITALS: BP 96/59
--- NOTE | 2019-10-25 | NUR ---
RN NOTES, PATIENT ON MECH VENT WITH 99-100% O2 SAT LEVEL, TOLERATED SETTINGS WELL.
--- NOTE | 2019-10-25 02:00 | NUR ---
RN NOTES, PATIENT ON MECH VENT WITH 98-100% O2 SAT LEVEL, TOLERATED SETTINGS WELL.
[2019-10-25 04:00] VITALS: BP 93/54
--- NOTE | 2019-10-25 04:00 | NUR ---
RN NOTES, PATIENT ON MECH VENT WITH 97-100% O2 SAT LEVEL, TOLERATED SETTINGS WELL.
[2019-10-25] MEDS: METOCLOPRAMIDE HCL 10 MG TABLET PO SCH ×4 (06:00→23:39)
--- NOTE | 2019-10-25 06:00 | NUR ---
RN NOTES, PATIENT ON MECH VENT WITH 99-100% O2 SAT LEVEL, TOLERATED SETTINGS WELL.
--- NOTE | 2019-10-25 06:40 | NUR ---
teletypesetter operator notes, patient sleeping this time, non-verbal, on mechanical ventilator tolerated settings well, no sob/acute distress noted, no s/s of pain or discomfort, no facial grimacing noted, sinus tachy on tele monitor, with hr 90-110s with episode of fever last night 100.0 axillary, Tylenol and cooling measures provided, after that hr decreased from 120s to 80s-90s, besides that, no significant Change in condition, Right side chest tube in place with light bloody, with minimal output 5ml, gtube in placed, clumped moderate drainage during night, lisa midline in placed patent and intact, Bed locked and in lowest position, well repositioned, will endorse continuity of care to oncoming nurse.
[2019-10-25 06:55] LABS: BASOPHILS % (AUTO) 0.1 % (0.0-2.0); EOSINOPHILS % (AUTO) 0.4 % (0.0-6.0); HEMATOCRIT 32 % (39-51); HEMOGLOBIN 10.5 g/dL (13.5-17.5); LYMPHOCYTES # (AUTO) 1.4 /CMM (0.8-4.8); LYMPHOCYTES % (AUTO) 7.8 % (20.0-44.0); MEAN CORPUSCULAR HGB CONC 33 g/dl (31.0-36.0); MEAN CORPUSCULAR VOLUME 88 fL (80-96); MONOCYTES # (AUTO) 0.9 /CMM (0.1-1.30); MONOCYTES % (AUTO) 5.1 % (2.0-12.0); NEUTROPHILS # (AUTO) 15.9 /CMM (1.8-8.9); NEUTROPHILS % (AUTO) 86.6 % (43.0-81.0); PLATELET COUNT (AUTO) 377 /CMM (150-450); RED BLOOD CELL COUNT(AUTO) 3.67 MIL/uL (4.5-6.0); WHITE BLOOD COUNT (AUTO) 18.4 K/uL (4.3-11.0)
[2019-10-25 07:07] LABS: CALCIUM, SERUM 9.1 mg/dL (8.5-10.1); CREATININE 0.3 mg/dL (0.6-1.3); MAGNESIUM 1.6 mg/dL (1.8-2.4); PHOSPHORUS 2.2 mg/dL (2.5-4.9)
[2019-10-25 07:10] LABS: POTASSIUM 2.4 mmol/L (3.5-5.1)
--- NOTE | 2019-10-25 07:20 | NUR ---
RN OPENING NOTE: RECEIVED PATIENT IN BED THIS MORNING. PATIENT IS NON-VERBAL, ON VENT, TOLERATING SETTINGS WELL. NO SIGNS OF RESPIRATORY DISTRESS NOTED. NO SIGNS OF ACUTE DISTRESS NOTED. PATIENT IS ON TELE MONITOR, SR 91. PATIENT HAS A CHEST TUBE ON RIGHT CHEST D/T PNEUMOTHORAX, NO SIGNS OF COMPLICATIONS NOTED, WILL CONTINUE TO MONITOR SITE AND DRAINAGE. PATIENT HAS GT, CLAMPED, NO FEEDING D/T NPO STATUS EXCEPT MEDS, CONTINUE TO MONITOR LEAK. CHRISTOPHER MIDLINE, C/D/I, FLUSHES WELL, NO SIGNS OF COMPLICATIONS NOTED. EDEMA NOTED ON L ARM, EXTREMITY ELEVATED. SAFETY MEASURES IMPLEMENTED, BED IN LOWEST POSITION, LOCKED, SIDE RAILS UP, CALL LIGHT WITHIN REACH. WILL CONTINUE TO MONITOR PATIENT FOR CHANGES.
[2019-10-25 08:00] VITALS: BP 99/62
--- NOTE | 2019-10-25 08:04 | NUR ---
NOTIFIED DR PICHARDO ABOUT K+ LEVEL OF 2.4, AWAITING RESPONSE BACK
[2019-10-25] MEDS: CEFEPIME 2 GM in IV D5W 100 ML IV SCH ×2 (08:18→20:01)
[2019-10-25] MEDS: ENOXAPARIN SODIUM 40 MG/0.4 ML DISP.SYRIN SQ SCH (08:19)
[2019-10-25] MEDS: FERROUS SULFATE UDC 300 MG/5 ML UDC GT SCH (08:19)
[2019-10-25] MEDS: ASPIRIN EC 81 MG TABLET.DR PO SCH (08:20)
[2019-10-25] MEDS: POTASSIUM CHLORIDE 20 MEQ POWDER PACKET GT SCH (08:20)
[2019-10-25] MEDS: CHLORHEXIDINE GLUCONATE 15 ML UDC MM SCH ×2 (08:20→17:05)
[2019-10-25] MEDS: ASCORBIC ACID 500 MG TABLET GT SCH (08:20)
[2019-10-25] MEDS: PANTOPRAZOLE 40 MG/PACK PACK NG SCH (08:20)
[2019-10-25] MEDS: MULTIVITAMINS,THERAGRAN 1 UDTAB TABLET GT SCH (08:21)
[2019-10-25] MEDS: PROSOURCE / PROSTAT (PYXIS) 30 ML UDC GT SCH (08:26)
[2019-10-25] MEDS: CARVEDILOL 6.25 MG TABLET GT SCH ×2 (08:39→20:01)
[2019-10-25] MEDS: DOCUSATE SODIUM LIQ 100 MG/10 ML UDC GT SCH (08:40)
[2019-10-25] MEDS ORDERED: DOCUSATE SODIUM 100 MG CAPSULE PO SCH (09:00)
[2019-10-25] MEDS: Magnesium 1GM/D5W 100ML PREMIX 100 ML IV SCH ×2 (09:12→10:32)
[2019-10-25] MEDS: POTASSIUM CL. PREMIX PERIPHER. 50 ML IV SCH ×6 (09:13→15:15)
--- NOTE | 2019-10-25 11:24 | NUR ---
PATIENT HAS BEEN NPO D/T GT LEAK/ MALFUNCTION. WE HAVE ONLY BEEN ADMINISTERING MEDICATIONS VIA GT AND FREE WATER FLUSHES Q [address] MEEHAN THAT PATIENT HAS BEEN NPO FOR 7 DAYS AND HAS NOT BEEN SEEN BY GI. PUT IN A NEW ORDER FOR GI CONSULT WITH DR JOHNSON. TUBE FEEDING ORDERED AT 20CC/HR. WILL CONTACT DIETARY AND INFORM THEM. WILL CONTINUE TO MONITOR PATIENT.
--- NOTE | 2019-10-25 11:33 | NUR ---
INFORMED DIETARY WE WILL BE PUTTING PATIENT BACK ON TUBE FEEDING AND MONITORING GTUBE SITE.
[2019-10-25 12:00] VITALS: BP 92/49
[2019-10-25] MEDS: POTASSIUM CHLORIDE 20 MEQ POWDER PACKET NG SCH ×2 (12:42→13:06)
[2019-10-25] MEDS ORDERED: JEVITY 1.2 CAL 1,000 ML BOTTLE GT PRN ×2 (13:00→13:44)
[2019-10-25] MEDS ORDERED: TWOCAL HN 1,000 ML LIQUID GT SCH (13:29)
[2019-10-25] MEDS: VANCOMYCIN 1 GM in IV D5W 250 ML IV SCH (13:58)
[2019-10-25 15:53] LABS: CALCIUM, SERUM 8.8 mg/dL (8.5-10.1); CREATININE 0.4 mg/dL (0.6-1.3); POTASSIUM 5.4 mmol/L (3.5-5.1)
[2019-10-25 16:00] VITALS: BP 98/59
[2019-10-25] MEDS ORDERED: NEUTRA PHOS 1 POWD.PACKET NG ONE (16:30)
--- NOTE | 2019-10-25 18:55 | NUR ---
RN CLOSING NOTE: PATIENT REMAINS IN BED. NO SIGNS OF RESPIRATORY DISTRESS NOTED. NO SIGNS OF ACUTE DISTRESS NOTED. PATIENT IS ON TELE MONITOR, SR 94. NO SIGNS OF ACUTE DISTRESS NOTED. SAFETY MEASURES IMPLEMENTED, BED IN LOWEST POSITION, LOCKED, SIDE RAILS UP, CALL LIGHT WITHIN REACH. WILL ENDORSE TO ONCOMING RN FOR CONTINUITY OF CARE.
--- NOTE | 2019-10-25 19:10 | NUR ---
RN OPENING NOTES Received patient awake, non-verbal. On vent with settings noted. On tele monitor with ST noted. No signs of discomfort noted at this time. With GTF infusing well, no abdominal distention noted. Kept on bed clean, dry and comfortable. On fall and aspiration precautions. Will continue to monitor accordingly.
[2019-10-25 20:00] VITALS: BP 111/66
[2019-10-25] MEDS: MORPHINE SULFATE INJ 2 MG/ML DISP.SYRIN IV PRN ×2 (20:00→22:08)
[2019-10-26] VITALS (7 sets, daily range): BP systolic 84–108; BP diastolic 48–62
[2019-10-26] MEDS: METOCLOPRAMIDE HCL 10 MG TABLET PO SCH ×4 (05:39→23:33)
--- NOTE | 2019-10-26 06:33 | NUR ---
RN CLOSING NOTES Patient asleep, easily awaken. On Vent with settings noted, suctioned PRN, with blood tinge secretions noted. No SOB/respiratory distress noted at this time. On continuous pulse ox as ordered. On GTF infusing well Glucerna 1.2 @ 15ml/hr for 24hrs as ordered, tolerated well, no abdominal distention noted. Medicated for pain noted effective. On tele monitor with sinus tach noted. With chest tube to R chest wall, no secretions noted. [place] indwelling well with clear yellow urine 250 output within the shift. All nursing needs needs attended, no new unusualities noted. Afebrile the whole shift. Kept on bed clean, dry and comfortable. On fall and aspiration precautions.
[2019-10-26 06:41] LABS: BASOPHILS % (AUTO) 0.1 % (0.0-2.0); EOSINOPHILS % (AUTO) 1.9 % (0.0-6.0); HEMATOCRIT 28 % (39-51); HEMOGLOBIN 9.4 g/dL (13.5-17.5); LYMPHOCYTES # (AUTO) 1.4 /CMM (0.8-4.8); MEAN CORPUSCULAR HGB CONC 33 g/dl (31.0-36.0); MEAN CORPUSCULAR VOLUME 87 fL (80-96); MONOCYTES # (AUTO) 0.8 /CMM (0.1-1.30); MONOCYTES % (AUTO) 4.7 % (2.0-12.0); NEUTROPHILS # (AUTO) 14.7 /CMM (1.8-8.9); NEUTROPHILS % (AUTO) 85.3 % (43.0-81.0); PLATELET COUNT (AUTO) 375 /CMM (150-450); RED BLOOD CELL COUNT(AUTO) 3.23 MIL/uL (4.5-6.0); WHITE BLOOD COUNT (AUTO) 17.3 K/uL (4.3-11.0)
[2019-10-26 07:19] LABS: CALCIUM, SERUM 8.6 mg/dL (8.5-10.1); CREATININE 0.3 mg/dL (0.6-1.3); MAGNESIUM 1.9 mg/dL (1.8-2.4); PHOSPHORUS 2.5 mg/dL (2.5-4.9); POTASSIUM 3.8 mmol/L (3.5-5.1)
--- NOTE | 2019-10-26 08:00 | NUR ---
RN OPENING NOTES TEMPORARILY TAKING CARE OF PATIENT UNTIL AM NURSE COMES IN AT 0900. CLAMPED CHEST TUBE PER DR FERNANDEZ ORDER. WILL ORDER CHEST X RAY IN 2HRS. PATIENT ON A VENT WITH SETTINGS ORDERED, SATURATING WELL. NO SOB NOTED. PATIENT SAFETY MAINTAINED, CALL LIGHT WITHIN REACH, WILL CONTINUE TO MONITOR CLOSELY.
[2019-10-26] MEDS: POTASSIUM CHLORIDE 20 MEQ POWDER PACKET GT SCH (09:03)
[2019-10-26] MEDS: FERROUS SULFATE UDC 300 MG/5 ML UDC GT SCH (09:03)
[2019-10-26] MEDS: CHLORHEXIDINE GLUCONATE 15 ML UDC MM SCH ×2 (09:03→17:06)
[2019-10-26] MEDS: DOCUSATE SODIUM LIQ 100 MG/10 ML UDC GT SCH (09:03)
[2019-10-26] MEDS: ASCORBIC ACID 500 MG TABLET GT SCH (09:03)
[2019-10-26] MEDS: ASPIRIN EC 81 MG TABLET.DR PO SCH (09:03)
[2019-10-26] MEDS: MULTIVITAMINS,THERAGRAN 1 UDTAB TABLET GT SCH (09:03)
[2019-10-26] MEDS: PANTOPRAZOLE 40 MG/PACK PACK NG SCH (09:03)
[2019-10-26] MEDS: CARVEDILOL 6.25 MG TABLET GT SCH ×3 (09:04→23:48)
[2019-10-26] MEDS: ENOXAPARIN SODIUM 40 MG/0.4 ML DISP.SYRIN SQ SCH (09:08)
[2019-10-26] MEDS: PROSOURCE / PROSTAT (PYXIS) 30 ML UDC GT SCH (09:08)
[2019-10-26] MEDS: CEFEPIME 2 GM in IV D5W 100 ML IV SCH ×2 (09:09→20:17)
--- NOTE | 2019-10-26 09:20 | NUR ---
RN NOTES ENDORSED PATIENT TO LYLE RALPH. PT SAFETY MAINTAINED, CALL LIGHT WITHIN REACH, ALL PATIENT NEEDS MET, SCHEDULED MEDS GIVEN ON TIME.
[2019-10-26] MEDS ORDERED: CHLORHEXIDINE GLUCONATE 4% 118 ML BOTTLE TP SCH (09:30)
--- NOTE | 2019-10-26 10:48 | NUR ---
GRADUATE SCHOOL DEAN NOTES NOTED MULTIPLE WOUND ON PATIENT. PICTURES TAKEN AND PLACED IN CHART WITH WOUND CARE NURSE,
--- NOTE | 2019-10-26 10:55 | NUR ---
WOUND CARE CONSULT: PT NOTED TO BE EXTREMELY THIN AND BONY WITH SCARRING NOTED TO SACRUM, LEFT HIP AND RT LATERAL FOOT WELL INTACT DEEP TISSUE INJURY AREAS OF DISCOLORATION TO LEFT HIP, LEFT BUTTOCK AND INCONTINENCE ASSOCIATED SKIN DAMAGE TO SCROTUM. RECOMMENDATIONS MADE FOR WOUND CARE AND SKIN PROTECTION. DISCUSSED WITH NURSING STAFF. FIRST STEP LOW AIRLOSS MATTRESS ORDERED. MD IN AGREEMENT WITH PLAN OF CARE. CURRENT THOMAS SCORE IS 12. Addendum: 10/26/19 at 1057 by MONTSERRAT MIXONU Amended: Links added. Addendum: 11/02/19 at 1011 by MONTSERRAT MIXONU LATE ENTRY: SACRAL SCARRING HAS SURROUNDING INTACT DEEP TISSUE INJURY 3CM X 3CM X UTD PURPLE COLOR.
--- NOTE | 2019-10-26 10:58 | NUR ---
INJECTION MACHINE OPERATOR NOTES DR FERNANDEZ AWARE OF CHEST XRAY RESULT. PER DR FERNANDEZ CONTINUE THE CHEST TUBE CLAMP.
[2019-10-26] MEDS: Z GUARD REMEDY 2 OZ OINT TP SCH ×2 (12:19→20:18)
--- NOTE | 2019-10-26 12:47 | NUR ---
HIDE DROPPER NOTES INFORMED DR MEEHAN THAT PATIENT HAS A LOW BLOOD PRESSURE OF 84/54. NO ORDERS FOR IV FLUIDS RIGHT NOW . PER MD MONITOR THE PATIENT BP.
--- NOTE | 2019-10-26 13:15 | NUR ---
UNDERGROUND BOLTING MACHINE OPERATOR NOTES CALLED PHARMACY NOTIFIED THAT PATIENT HAS VANCO THROUGH FROM 11/02/2019 ON 15. PHARMACY CONFIRMED THAT IT IS OK TO GIVE THE VANCO DOSE.
[2019-10-26] MEDS: VANCOMYCIN 1 GM in IV D5W 250 ML IV SCH (13:21)
--- NOTE | 2019-10-26 18:48 | NUR ---
VEHICLE MODIFICATION TECHNICIAN NOTES PATIENT IN BED EYES OPEN , NONVERBAL COMFORTABLE. ALL NEEDS ATTENDED. NO RESIDUAL NOTED FROM GT SITE NO LEAKAGE NOTED FROM GTUBE SIDE. PATIENT IN STABLE CONDITION . REPORT HANDED TO FINISHING SUPERVISOR PLASTIC SHEETS NURSE.
--- NOTE | 2019-10-26 20:00 | NUR ---
RN NOTES RECEIVED PT. AWAKE NON, VERBAL, VENT DEPENDENT, CHEST TUBE IN PLACE, ST ON TELE MONITOR HR-105, GTUBE FEEDING RUNNING @ 15ML/HR, NO RESIDUAL , F/C DRAINING CLEAR YELLOW URINE, SIDERAILSUPX2, CONTINUE TO MONITOR
--- NOTE | 2019-10-26 21:00 | NUR ---
RN NOTES COREG 6.25MG WAS NOT GIVEN BLOOD PRESSURE, 99/55 HR-105
--- NOTE | 2019-10-26 22:29 | NUR ---
pt received trached on [facility] vent with noted settings. Pt tolerating settings well. No SOB or distress noted at this time. Will continue to monitor. Addendum: 10/26/19 at 2230 by ANASTASIA PERKINS RT Amended: Links added.
[2019-10-27] VITALS (8 sets, daily range): BP systolic 85–120; BP diastolic 51–62
[2019-10-27] MEDS: MORPHINE SULFATE INJ 2 MG/ML DISP.SYRIN IV PRN ×2 (01:07→20:30)
--- NOTE | 2019-10-27 01:07 | NUR ---
RN NOTES PT. LOOKS IN PAIN-MORPHINE 4 MG IV GIVEN ORDERED, V/S STABLE
--- NOTE | 2019-10-27 01:09 | NUR ---
RT NOTE. SUCTIONED BROWN THIN SECRETIONS. HR 120 + SPO2 99-100% WILL CONTINUE TO MONITOR T/O SHIFT Addendum: 10/27/19 at 0110 by ANASTASIA PERKINS RT Amended: Links added.
--- NOTE | 2019-10-27 03:03 | NUR ---
RN NOTES INFORMED VICENTE BOSCH REGARDING PT'S HEART RATE WENT UP TO 140. EKG WAS DONE , IT WAS ST-130, COREG 6.25MG GT GIVEN. AFTER AN HOUR MORPHINE 4MG IV GIVEN, PT. HEART RATE WENT DOWN TO 116-123 HIGHEST-131, PT HEART RATE IS NOT SUSTAIN. PT CHEST TUBE IS CLAMPED BUT PT. IS NOT IN DISTRESS.. VICENTE BOSCH ORDERED TO MONITOR THE PT.
[2019-10-27] MEDS: ACETAMINOPHEN 650 MG/20.3 ML UDC NG PRN ×2 (03:09→19:41)
--- NOTE | 2019-10-27 03:20 | NUR ---
LYLE NOTES VICENTE KENDALL ORDERED A CXR , WILL MONITOR THE PT.
--- NOTE | 2019-10-27 03:59 | NUR ---
RN NOTES BLOOD PRESSURE WENT DOWN TO 85/51. INFORMED DR. BASURTO, NO ORDER WAS GIVEN
[2019-10-27] MEDS: METOCLOPRAMIDE HCL 10 MG TABLET PO SCH ×3 (05:01→18:01)
[2019-10-27 06:47] LABS: CALCIUM, SERUM 8.2 mg/dL (8.5-10.1); CREATININE 0.4 mg/dL (0.6-1.3)
--- NOTE | 2019-10-27 06:48 | NUR ---
RN NOTES AWAKE, SR ON THE MONITOR HR-92, MORNING CARE RENDERED, CHEST TUBE IN PLACE, STILL CLAMPED, GTUBE FEEDING IN PLACE NO RESIDUAL NOTED, NOT IN DISTRESS, SIDERAILSUPX2, PT. NEEDS ATTENDED
[2019-10-27 07:16] LABS: BASOPHILS % (AUTO) 0.2 % (0.0-2.0); EOSINOPHILS % (AUTO) 0.3 % (0.0-6.0); HEMATOCRIT 28 % (39-51); HEMOGLOBIN 9.1 g/dL (13.5-17.5); LYMPHOCYTES # (AUTO) 0.8 /CMM (0.8-4.8); LYMPHOCYTES % (AUTO) 4.1 % (20.0-44.0); MEAN CORPUSCULAR HGB CONC 33 g/dl (31.0-36.0); MEAN CORPUSCULAR VOLUME 88 fL (80-96); MONOCYTES # (AUTO) 0.8 /CMM (0.1-1.30); NEUTROPHILS # (AUTO) 18.7 /CMM (1.8-8.9); NEUTROPHILS % (AUTO) 91.4 % (43.0-81.0); PLATELET COUNT (AUTO) 347 /CMM (150-450); RED BLOOD CELL COUNT(AUTO) 3.16 MIL/uL (4.5-6.0); WHITE BLOOD COUNT (AUTO) 20.5 K/uL (4.3-11.0)
--- NOTE | 2019-10-27 07:30 | NUR ---
ADDING MACHINE MECHANIC AM NOTES RECEIVED PT IN BED, OPEN EYES, NON VERBAL ON PORTEX 7 TO VENT WITH SETTING AC 16 TV 450 FIO2 30% PEEP 5. RESPIRATION UNLABORED. SINUS RHYTHM HR 87 NO SIGNS OF PAIN, AFEBRILE, CHEST TUBE CLAMPED, NO SIGNS OF PAIN. CHRISTOPHER MIDLINE TO TKO, CDI DRESSING. JEVITY 1.2 RUNNING AT 15 ML/HR. 0 RESIDUAL. FOR REMOVAL OF CHEST TUBE TODAY PER DR. FERNANDEZ. SEE NURSING FLOWSHEET FOR SKIN ISSUES. SUCTION SET UP. WILL TURN AND REPOSITION Q2 HOURS. SAFETY MEASURES IN PLACE. WILL MONITOR CLOSELY.
[2019-10-27 07:50] LABS: POTASSIUM 2.5 mmol/L (3.5-5.1)
--- NOTE | 2019-10-27 08:18 | NUR ---
pt received trached on [facility] vent with noted settings. Pt tolerating settings well. No SOB or distress noted at this time. Will continue to monitor t/o shift. Addendum: 10/27/19 at 0818 by HORACIO ALMONTE RT Amended: Links added.
[2019-10-27] MEDS ORDERED: GLUCERNA 1.2 1,000 ML BOTTLE GT PRN (08:30)
[2019-10-27] MEDS: CARVEDILOL 6.25 MG TABLET GT SCH (09:00)
--- NOTE | 2019-10-27 09:00 | NUR ---
RN NOTES PER DR. JOHNSON, INCREASE GT FEEDING TO 40 ML/HR.
--- NOTE | 2019-10-27 09:15 | NUR ---
RN NOTES INFORMED DR. MEEHAN REGARDING PT'S K = 2.5. NEW ORDER RECEIVED TO GIVE K DUR 40 MEQ X 2 DOSES.
[2019-10-27] MEDS ORDERED: POTASSIUM CHLORIDE 20 MEQ TAB.PRT.SR PO ONE ×2 (09:30→10:30)
[2019-10-27] MEDS: DOCUSATE SODIUM LIQ 100 MG/10 ML UDC GT SCH (09:37)
[2019-10-27] MEDS: MULTIVITAMINS,THERAGRAN 1 UDTAB TABLET GT SCH (09:37)
[2019-10-27] MEDS: FERROUS SULFATE UDC 300 MG/5 ML UDC GT SCH (09:37)
[2019-10-27] MEDS: CHLORHEXIDINE GLUCONATE 15 ML UDC MM SCH ×2 (09:37→18:01)
[2019-10-27] MEDS: ASCORBIC ACID 500 MG TABLET GT SCH (09:38)
[2019-10-27] MEDS: ASPIRIN EC 81 MG TABLET.DR PO SCH (09:38)
[2019-10-27] MEDS: PANTOPRAZOLE 40 MG/PACK PACK NG SCH (09:42)
[2019-10-27] MEDS: PROSOURCE / PROSTAT (PYXIS) 30 ML UDC GT SCH (09:42)
[2019-10-27] MEDS: POTASSIUM CHLORIDE 20 MEQ POWDER PACKET GT SCH (09:42)
[2019-10-27] MEDS: Z GUARD REMEDY 2 OZ OINT TP SCH ×2 (09:43→21:00)
[2019-10-27] MEDS: ENOXAPARIN SODIUM 40 MG/0.4 ML DISP.SYRIN SQ SCH (09:44)
--- NOTE | 2019-10-27 10:00 | NUR ---
RN NOTES CHEST TUBE REMOVED BY DR. FERNANDEZ. BULK DRESSING IN PLACE.
[2019-10-27] MEDS: CEFEPIME 2 GM in IV D5W 100 ML IV SCH ×2 (10:06→20:29)
[2019-10-27] MEDS ORDERED: POTASSIUM CHLORIDE 20 MEQ POWDER PACKET GT SCH (10:30)
[2019-10-27] MEDS: VANCOMYCIN 1 GM in IV D5W 250 ML IV SCH (14:31)
--- NOTE | 2019-10-27 19:10 | NUR ---
ROD PULLER NOTES RECEIVED PT ON BED AWAKE NON VERBAL ON VENT TRACH SETTING PER MD NO SIGN AND SYMPTOMS OF RESPIRATORY DISTRESS, SPO2 98% ON TELE MONITOR READING STACHY 130'S PATIENTS FACIAL GRIMACE PRN PAIN MEDS GIVEN ON GTUBE FEEING JEVITY 1.2 @ 15 ML/HR GOAL OF 40ML/HR RESIDUAL CHECKED, WITH CHRISTOPHER MIDLINE PATENT AND FLUSHED, SAFETY MEASURE MAINTAINED BED ON LOWEST POSITION AND LOCKED BED RAILS UP X 3 CALL LIGHT WITHIN REACH WILL CONT. TO MONITOR
--- NOTE | 2019-10-27 19:20 | NUR ---
RN NOTES PATIENT RESTING. ALL NEEDS MET AT THIS TIME. DR. ZORAN MONTENEGRO INFORMED ABOUT ATTEMPT CALL TO DR. JOHNSON'S OFFICE REGARDING LEAKING GTUBE. PLACED ON HOLD EXCEPT MEDS. PER DR. MEEHAN, HE WILL TEXT DR. JOHNSON. SOON CHARGE NURSE AWARE. PERFORMED PRESCRIBED WOUND CARE AND TURNED AND REPOSITIONED Q2 HOURS. ALL DUE MEDICATIONS GIVEN. SAFETY MEASURES IN PLACE. ENDORSED TO NEXT SHIFT FOR LLUVIA.
--- NOTE | 2019-10-27 19:57 | NUR ---
RT NOTE PT RECEIVED TRACHED ON MECHANICAL VENTILATION. PORTEX [address] AMBU BAG @ HOB. SX DONE, MODERATE THICK BLOODY SECRETIONS NOTED. RN DALILA AWARE. ALARMS ON AND AUDIBLE. VENT PLUGGED TO RED OUTLET. WILL CONTINUE TO MONITOR CLOSELY. CONT. PULSE OX CONNECTED. Addendum: 10/27/19 at 2001 by YASHIRA HOPSON RT Amended: Links added.
--- NOTE | 2019-10-27 22:30 | NUR ---
RN NOTES MINIMAL BLEEDING ON TRACH SUCTIONED SECRETION STILL NOTED WILL CONT TO MONITOR
[2019-10-28] VITALS: BP 90/55
[2019-10-28] MEDS: METOCLOPRAMIDE HCL 10 MG TABLET PO SCH ×4 (00:42→17:19)
[2019-10-28 04:00] VITALS: BP 91/50
[2019-10-28] MEDS: JEVITY 1.2 CAL 1,000 ML BOTTLE GT PRN (05:53)
--- NOTE | 2019-10-28 07:04 | NUR ---
RN CLOSING NOTES Patient asleep, easily awaken. On Vent with settings noted, suctioned PRN, with blood tinge secretions noted. No SOB/respiratory distress noted at this time. On continuous pulse ox as ordered. On GTF infusing well Glucerna 1.2 @ 40ml/hr for 24hrs as ordered, tolerated well, no abdominal distention noted. Medicated for pain noted effective. On tele monitor with sinus tach noted. [place] indwelling well with clear yellow urine 850 output within the shift. All nursing needs needs attended, no new unusualities noted. Afebrile the whole shift. Kept on bed clean, dry and comfortable. On fall and aspiration precautions.
[2019-10-28 07:12] LABS: BASOPHILS % (AUTO) 0.1 % (0.0-2.0); EOSINOPHILS % (AUTO) 0.2 % (0.0-6.0); HEMATOCRIT 32 % (39-51); HEMOGLOBIN 10.2 g/dL (13.5-17.5); LYMPHOCYTES # (AUTO) 0.8 /CMM (0.8-4.8); LYMPHOCYTES % (AUTO) 2.7 % (20.0-44.0); MEAN CORPUSCULAR HGB CONC 32 g/dl (31.0-36.0); MEAN CORPUSCULAR VOLUME 89 fL (80-96); MONOCYTES % (AUTO) 3.6 % (2.0-12.0); NEUTROPHILS # (AUTO) 26.4 /CMM (1.8-8.9); NEUTROPHILS % (AUTO) 93.4 % (43.0-81.0); PLATELET COUNT (AUTO) 304 /CMM (150-450); RED BLOOD CELL COUNT(AUTO) 3.55 MIL/uL (4.5-6.0); WHITE BLOOD COUNT (AUTO) 28.3 K/uL (4.3-11.0)
[2019-10-28 07:20] LABS: CALCIUM, SERUM 8.6 mg/dL (8.5-10.1); CREATININE 0.4 mg/dL (0.6-1.3); POTASSIUM 4.3 mmol/L (3.5-5.1)
--- NOTE | 2019-10-28 07:30 | NUR ---
URBAN DESIGN CONSULTANT AM NOTES RECEIVED PT IN BED, OPEN EYES, NON VERBAL ON PORTEX 7 TO VENT WITH SETTING AC 16 TV 450 FIO2 30% PEEP 5. RESPIRATION UNLABORED. SINUS TACH HR 130 NO SIGNS OF PAIN, AFEBRILE, CHEST TUBE SITE CDI DRESSING, NO BLEEDING, CHRISTOPHER MIDLINE TO TKO, CDI DRESSING. JEVITY 1.2 RUNNING AT 40 ML/HR. 0 RESIDUAL.NO LEAKAGE. CDI DRESSING IN PLACE. SEE NURSING FLOWSHEET FOR SKIN ISSUES. SUCTION SET UP IN PLACE. WILL TURN AND REPOSITION Q2 HOURS. SAFETY MEASURES IN PLACE. WILL MONITOR CLOSELY. DR. JOHNSON TO SEE PATIENT.
[2019-10-28 08:00] VITALS: BP 93/53
[2019-10-28] MEDS: PANTOPRAZOLE 40 MG/PACK PACK NG SCH (08:53)
[2019-10-28] MEDS: ASCORBIC ACID 500 MG TABLET GT SCH (08:53)
[2019-10-28] MEDS: MULTIVITAMINS,THERAGRAN 1 UDTAB TABLET GT SCH (08:53)
[2019-10-28] MEDS: DOCUSATE SODIUM LIQ 100 MG/10 ML UDC GT SCH (08:53)
[2019-10-28] MEDS: FERROUS SULFATE UDC 300 MG/5 ML UDC GT SCH (08:53)
[2019-10-28] MEDS: ASPIRIN EC 81 MG TABLET.DR PO SCH (08:53)
[2019-10-28] MEDS: CEFEPIME 2 GM in IV D5W 100 ML IV SCH (08:53)
[2019-10-28] MEDS: CHLORHEXIDINE GLUCONATE 15 ML UDC MM SCH ×2 (08:53→17:19)
[2019-10-28] MEDS: Z GUARD REMEDY 2 OZ OINT TP SCH ×2 (08:54→23:02)
[2019-10-28] MEDS: PROSOURCE / PROSTAT (PYXIS) 30 ML UDC GT SCH (08:56)
[2019-10-28] MEDS: ENOXAPARIN SODIUM 40 MG/0.4 ML DISP.SYRIN SQ SCH (08:59)
--- NOTE | 2019-10-28 09:30 | NUR ---
RN NOTES DUE MEDS GIVEN. CHRISTOPHER MIDLINE NOT WORKING. INFORMED NURSING NON PROFIT JOB TITLES. LUIS WHITING RN WILL COME TO FIX IT.
--- NOTE | 2019-10-28 10:15 | NUR ---
RN NOTES LUIS PICC LINE NURSE WILL COME BACK TO FIX MIDLINE.
[2019-10-28 12:00] VITALS: BP_SYST 80; BP_SYST 90; BP_DIAS 46; BP_DIAS 50
--- NOTE | 2019-10-28 14:51 | NUR ---
RN NOTE JORGE PICC LINE NURSE NOW AT BEDSIDE. [facility] INFORMED ABOUT LATE ADMINISTRATION OF IV ATB
[2019-10-28] MEDS: VANCOMYCIN 1 GM in IV D5W 250 ML IV SCH (15:04)
[2019-10-28 16:00] VITALS: BP 116/66
[2019-10-28] MEDS ORDERED: IV D5/ 0.9% NACL 1,000 ML IV ONE (16:30)
--- NOTE | 2019-10-28 19:19 | NUR ---
SURPLUS PROPERTY DISPOSAL AGENT CLOSING NOTES PT RESTING IN BED, OPEN EYES, NON VERBAL ON PORTEX 7 TO VENT WITH SETTING AC 16 TV 450 FIO2 30% PEEP 5. RESPIRATION UNLABORED. SINUS TACH HR 130-140, NO SIGNS OF PAIN, AFEBRILE, CHEST TUBE SITE CDI DRESSING, NO BLEEDING, ALFA MIDLINE TO D5NS 100 ML/HR BAG 1 OF 2. CDI DRESSING. JEVITY 1.2 RUNNING AT 40 ML/HR. 0 RESIDUAL.NO LEAKAGE. CDI DRESSING IN PLACE. PM CARE AND PRESCRIBED WOUND TREATMENT DON EARLIER. SUCTION SET UP IN PLACE. TURNED AND REPOSITIONED Q2 HOURS. SAFETY MEASURES IN PLACE. ALL NEEDS MET. ENDORSED TO NEXT SHIFT FOR LLUVIA.
--- NOTE | 2019-10-28 19:30 | NUR ---
RN OPENING NOTES: PATIENT IN BED, ON VENT TRACH, TOLERATING SETTINGS WELL. O2 SAT 100%. NO ACUTE DISTRESS. ALFA MIDLINE C/D/I; FLUSHING WELL. FAUST CATH INTACT AND PATENT DRAINING YELLOW URINE. ON TITLE VEHICLE SERVICE ATTENDANT SHOWING SINUS TACHY. PATIENT IS AFEBRILE. SAFETY PRECAUTIONS IMPLEMENTED. BED LOCKED, LOW POSITION, HOB ELEVATED. SIDE RAILS X 2 UP. GT SITE DRY AND INTACT, NO LEAKING AT THIS TIME, TOLERATING GT FEEDING WELL, NO RESIDUAL. CALL LIGHT PLACED WITHIN REACH. WILL CONT. TO MONITOR.
--- NOTE | 2019-10-28 19:48 | NUR ---
RN NOTE: IV MEREM UNAVAILABLE. CALLED [facility] FROM PHARMACY. PER [facility], THEY WILL DELIVER MED TO UNIT.
[2019-10-28 20:00] VITALS: BP 92/64
[2019-10-28] MEDS: ACETAMINOPHEN 650 MG/20.3 ML UDC NG PRN (20:39)
[2019-10-28] MEDS: MEROPENEM 500 MG in IV NS 0.9% 50 ML IV SCH (20:56)
[2019-10-29] VITALS: BP 104/74
[2019-10-29] MEDS: METOCLOPRAMIDE HCL 10 MG TABLET PO SCH ×4 (01:25→17:47)
[2019-10-29 04:00] VITALS: BP 118/70
--- NOTE | 2019-10-29 05:00 | NUR ---
telescope maintenance notes Rt reported received pts with blood tinged secretion , pts suction gently ,no sob no distress noted , made aware .will continue to monitor ,pts is stable at this time. Addendum: 10/30/19 at 0615 by ARNOLD LAND RN PTS RECEIVED WITH BLOOD TINGED AT 20:00HRS 10/29/19 NOT 0500AM
[2019-10-29] MEDS: MEROPENEM 500 MG in IV NS 0.9% 50 ML IV SCH ×3 (05:41→20:08)
[2019-10-29 07:13] LABS: BASOPHILS % (AUTO) 0.1 % (0.0-2.0); HEMATOCRIT 33 % (39-51); HEMOGLOBIN 10.8 g/dL (13.5-17.5); LYMPHOCYTES # (AUTO) 0.5 /CMM (0.8-4.8); LYMPHOCYTES % (AUTO) 1.7 % (20.0-44.0); MEAN CORPUSCULAR HGB CONC 32 g/dl (31.0-36.0); MEAN CORPUSCULAR VOLUME 89 fL (80-96); MONOCYTES # (AUTO) 1.2 /CMM (0.1-1.30); MONOCYTES % (AUTO) 4.1 % (2.0-12.0); NEUTROPHILS # (AUTO) 28.1 /CMM (1.8-8.9); NEUTROPHILS % (AUTO) 94.1 % (43.0-81.0); PLATELET COUNT (AUTO) 511 /CMM (150-450); RED BLOOD CELL COUNT(AUTO) 3.76 MIL/uL (4.5-6.0); WHITE BLOOD COUNT (AUTO) 29.8 K/uL (4.3-11.0)
[2019-10-29 07:25] LABS: CALCIUM, SERUM 8.6 mg/dL (8.5-10.1); CREATININE 0.4 mg/dL (0.6-1.3)
--- NOTE | 2019-10-29 07:30 | NUR ---
RN CLOSING NOTE: PATIENT IN BED, ON VENT TRACH, TOLERATING SETTINGS WELL. O2 SAT 100%. NO ACUTE DISTRESS DURING SHIFT. AFEBRILE. STABLE CONDITION. ENDORSED TO AM SHIFT NURSE FOR CONTINUITY OF CARE. Addendum: 10/29/19 at 0804 by RAQUEL COATS RN TURNED AND REPOSITIONED Q2H FOR COMFORT AND SKIN INTEGRITY.
[2019-10-29 07:38] LABS: POTASSIUM 2.5 mmol/L (3.5-5.1)
[2019-10-29 08:00] VITALS: BP 110/72
[2019-10-29] MEDS: VANCOMYCIN 1 GM in IV D5W 250 ML IV SCH (08:00)
[2019-10-29] MEDS: CHLORHEXIDINE GLUCONATE 15 ML UDC MM SCH ×2 (08:10→17:47)
[2019-10-29] MEDS: DOCUSATE SODIUM LIQ 100 MG/10 ML UDC GT SCH (08:10)
[2019-10-29] MEDS: ENOXAPARIN SODIUM 40 MG/0.4 ML DISP.SYRIN SQ SCH (08:10)
[2019-10-29] MEDS: PANTOPRAZOLE 40 MG/PACK PACK NG SCH (08:10)
[2019-10-29] MEDS: MULTIVITAMINS,THERAGRAN 1 UDTAB TABLET GT SCH (08:10)
[2019-10-29] MEDS: FERROUS SULFATE UDC 300 MG/5 ML UDC GT SCH (08:10)
[2019-10-29] MEDS: ASCORBIC ACID 500 MG TABLET GT SCH (08:11)
[2019-10-29] MEDS: ASPIRIN EC 81 MG TABLET.DR PO SCH (08:11)
[2019-10-29] MEDS: Z GUARD REMEDY 2 OZ OINT TP SCH ×2 (08:18→21:16)
--- NOTE | 2019-10-29 08:41 | NUR ---
PATIENT'S K+ LEVEL 2.5. CONTACTED DR MEEHAN, AWAITING RESPONSE WITH NEW ORDERS. Addendum: 10/29/19 at 1122 by JANES LOWERY RN CONTACTED AGAIN REGARDING K+ LEVELS, AWAITING ORDERS Addendum: 10/29/19 at 1136 by JANES LOWERY RN NEW ORDERS FOR K+ SUPPLEMENTATION
--- NOTE | 2019-10-29 10:23 | NUR ---
GROUTMAN NOTES RECEIVED PATIENT IN BED THIS MORNING. PATIENT IS NONVERBAL AND AWAKE. PATIENT IS ON VENTI TRACH. SATING WELL. NO SIGNS OF RESPIRATORY DISTRESS NOTED. G-TUBE with Jevity 1.2 @25 ml/hr .NO SIGNS OF ACUTE DISTRESS NOTED. SAFETY MEASURES IMPLEMENTED, BED IN LOWEST POSITION, LOCKED, SIDE RAILS UP, CALL LIGHT WITHIN REACH. WILL CONTINUE TO MONITOR PATIENT FOR ANY CHANGES.
[2019-10-29] MEDS ORDERED: POTASSIUM CHLORIDE 20 MEQ POWDER PACKET GT STA (11:34)
[2019-10-29] MEDS ORDERED: POTASSIUM CL. PREMIX PERIPHER. 50 ML IV STA (11:35)
[2019-10-29] MEDS: PROSOURCE / PROSTAT (PYXIS) 30 ML UDC GT SCH (11:44)
[2019-10-29 12:00] VITALS: BP 124/80
--- NOTE | 2019-10-29 12:58 | NUR ---
NOTICED POTASSIUM IV DC FOR PATIENT BY PHARMACIST, CAROLYN. AWAITING CALL BACK FROM PHARMACIST FOR CLARIFICATION TO WHY MED WAS DC. Addendum: 10/29/19 at 1524 by JANES LOWERY RN ISSUE RESOLVED.
[2019-10-29] MEDS: POTASSIUM CL. PREMIX PERIPHER. 50 ML IV SCH ×3 (13:20→15:43)
[2019-10-29] MEDS: MORPHINE SULFATE INJ 2 MG/ML DISP.SYRIN IV PRN (15:12)
--- NOTE | 2019-10-29 15:24 | NUR ---
DR MEEHAN AWARE OF PATIENT'S HR ST 145
[2019-10-29 16:00] VITALS: BP 98/86
[2019-10-29] MEDS: JEVITY 1.2 CAL 1,000 ML BOTTLE GT PRN (17:51)
--- NOTE | 2019-10-29 19:02 | NUR ---
RN CLOSING NOTE: PATIENT REMAINS IN BED. NO SIGNS OF RESPIRATORY DISTRESS NOTED. NO SIGNS OF ACUTE DISTRESS NOTED. ON TELE MONITOR, SINUS TACHY 127. SAFETY MEASURES IMPLEMENTED, BED IN LOWEST POSITION, LOCKED, SIDE RAILS UP, CALL LIGHT WITHIN REACH. WILL CONTINUE TO MONITOR PATIENT FOR CHANGES. Addendum: 10/29/19 at 1907 by JANES LOWERY RN ENDORSED TO ONCOMING NURSE FOR CONTINUITY OF CARE.
[2019-10-29 20:00] VITALS: BP 95/58
[2019-10-29] MEDS: Z GUARD REMEDY 2 OZ OINT TP PRN ×2 (20:14→21:16)
--- NOTE | 2019-10-29 22:58 | NUR ---
UNIVERSAL GRINDER SET UP OPERATOR NOTES PATIENT IN BED, ON VENT TRACH, TOLERATING SETTINGS WELL. O2 SAT 99%. NO SOB ,NO DISTRESS.NO PAIN NOTED AT THIS TIME ALFA MIDLINE INTACT AND PATENT. FAUST CATH INTACT DRAINING YELLOW URINE. ON SR. MANAGER SHOWING SINUS TACHY-134 PATIENT IS AFEBRILE. SAFETY PRECAUTIONS IMPLEMENTED. BED LOCKED, LOW POSITION, HOB ELEVATED. SIDE RAILS X 2 UP. JEVITY 1.2 AT 40CC/HR TOLERATING WELL GT SITE DRY AND INTACT. CALL LIGHT WITHIN REACH. WILL CONT. TO MONITOR.ALL DUE MEDS GIVEN ORDERED.SPOKE TO FAMILY VIA PHONE UPDATED WITH PTS CURRENT CONDITION.
[2019-10-30] VITALS: BP 103/56
[2019-10-30] MEDS: METOCLOPRAMIDE HCL 10 MG TABLET PO SCH ×4 (00:55→17:16)
[2019-10-30] MEDS: VANCOMYCIN 1 GM in IV D5W 250 ML IV SCH ×2 (01:54→20:38)
[2019-10-30 04:00] VITALS: BP 95/55
[2019-10-30] MEDS: MEROPENEM 500 MG in IV NS 0.9% 50 ML IV SCH ×3 (04:21→21:04)
--- NOTE | 2019-10-30 05:56 | NUR ---
director television news notes Per Rt, blood tinged is clearing will continue to monitor.
--- NOTE | 2019-10-30 06:00 | NUR ---
RN NOTES PATIENT REMAINS IN BED. ON SAME VENTILATOR SETTINGS NO SIGNS OF RESPIRATORY DISTRESS NOTED. ON TELE MONITOR, SINUS TACHY 126. SAFETY MEASURES IMPLEMENTED, BED IN LOWEST POSITION, LOCKED, SIDE RAILS UP, CALL LIGHT WITHIN REACH. WILL CONTINUE TO MONITOR PATIENT FOR CHANGES. WILL ENDORSE TO RN DAY SHIFT FOR CONTINUITY OF CARE.
[2019-10-30 06:26] LABS: BASOPHILS % (AUTO) 0.1 % (0.0-2.0); HEMATOCRIT 29 % (39-51); HEMOGLOBIN 9.3 g/dL (13.5-17.5); LYMPHOCYTES # (AUTO) 0.8 /CMM (0.8-4.8); LYMPHOCYTES % (AUTO) 3.7 % (20.0-44.0); MEAN CORPUSCULAR HGB CONC 32 g/dl (31.0-36.0); MEAN CORPUSCULAR VOLUME 89 fL (80-96); MONOCYTES # (AUTO) 1.5 /CMM (0.1-1.30); MONOCYTES % (AUTO) 7.1 % (2.0-12.0); NEUTROPHILS # (AUTO) 18.8 /CMM (1.8-8.9); NEUTROPHILS % (AUTO) 89.1 % (43.0-81.0); PLATELET COUNT (AUTO) 513 /CMM (150-450); RED BLOOD CELL COUNT(AUTO) 3.25 MIL/uL (4.5-6.0); WHITE BLOOD COUNT (AUTO) 21.1 K/uL (4.3-11.0)
[2019-10-30 06:32] LABS: CALCIUM, SERUM 8.2 mg/dL (8.5-10.1); CREATININE 0.4 mg/dL (0.6-1.3); MAGNESIUM 1.8 mg/dL (1.8-2.4); POTASSIUM 3.8 mmol/L (3.5-5.1)
[2019-10-30 08:00] VITALS: BP 110/72
[2019-10-30] MEDS: MULTIVITAMINS,THERAGRAN 1 UDTAB TABLET GT SCH (08:41)
[2019-10-30] MEDS: FERROUS SULFATE UDC 300 MG/5 ML UDC GT SCH (08:41)
[2019-10-30] MEDS: DOCUSATE SODIUM LIQ 100 MG/10 ML UDC GT SCH (08:41)
[2019-10-30] MEDS: ENOXAPARIN SODIUM 40 MG/0.4 ML DISP.SYRIN SQ SCH (08:43)
[2019-10-30] MEDS: CHLORHEXIDINE GLUCONATE 15 ML UDC MM SCH ×2 (08:43→16:21)
[2019-10-30] MEDS: ASCORBIC ACID 500 MG TABLET GT SCH (08:43)
[2019-10-30] MEDS: ASPIRIN EC 81 MG TABLET.DR PO SCH (08:43)
[2019-10-30] MEDS: PANTOPRAZOLE 40 MG/PACK PACK NG SCH (08:43)
[2019-10-30] MEDS: Z GUARD REMEDY 2 OZ OINT TP SCH ×2 (08:45→21:05)
[2019-10-30] MEDS: PROSOURCE / PROSTAT (PYXIS) 30 ML UDC GT SCH (08:55)
[2019-10-30 12:00] VITALS: BP 128/68
[2019-10-30] MEDS ORDERED: NEUTRA PHOS 1 POWD.PACKET NG ONE (15:30)
[2019-10-30 16:00] VITALS: BP 130/76
[2019-10-30] MEDS: JEVITY 1.2 CAL 1,000 ML BOTTLE GT PRN (18:18)
--- NOTE | 2019-10-30 18:55 | NUR ---
Handoff with night team registered nurse. [place] RN
--- NOTE | 2019-10-30 19:30 | NUR ---
BRAKE LINING DRILLER NOTE RECEIVED PATIENT IN BED IN STABLE CONDITION, NO S/S OF ACUTE DISTRESS NOTED. CONT ON VENT TRACH TOLERATING SETTING WE ORDERED. TELE MONITOR READING ST.BREATHING NORMAL NO SOB NOTED RESPIRATION EVEN NON LABORED. IV SITE ALFA MIDLINE PATENT FLUSHED WELL. F/C INTACT JOSÉ MIGUEL URINE DARNING WITH GRAVITY. TELE MONITOR READING ST. CONTINUES ON GTF JEVITY 1.2@ 40CC/HR TOLERATING WELL NO RESIDUAL NOTED. HOB ELEVATED. SAFETY MEASURES IN PLACE, BED IN LOW POSITION. CALL LIGHT WITHIN REACH. WILL CONT TO MONITOR.
[2019-10-30 20:00] VITALS: BP 112/65
[2019-10-31] VITALS (9 sets, daily range): BP systolic 95–112; BP diastolic 52–72
[2019-10-31] MEDS: METOCLOPRAMIDE HCL 10 MG TABLET PO SCH ×4 (00:07→17:42)
[2019-10-31] MEDS: MEROPENEM 500 MG in IV NS 0.9% 50 ML IV SCH ×3 (04:04→21:09)
[2019-10-31 06:39] LABS: EOSINOPHILS % (AUTO) 0.2 % (0.0-6.0); HEMATOCRIT 28 % (39-51); HEMOGLOBIN 9.3 g/dL (13.5-17.5); LYMPHOCYTES # (AUTO) 0.8 /CMM (0.8-4.8); LYMPHOCYTES % (AUTO) 3.6 % (20.0-44.0); MEAN CORPUSCULAR HGB CONC 33 g/dl (31.0-36.0); MEAN CORPUSCULAR VOLUME 88 fL (80-96); MONOCYTES # (AUTO) 1.5 /CMM (0.1-1.30); MONOCYTES % (AUTO) 6.6 % (2.0-12.0); NEUTROPHILS # (AUTO) 20.6 /CMM (1.8-8.9); NEUTROPHILS % (AUTO) 89.6 % (43.0-81.0); PLATELET COUNT (AUTO) 542 /CMM (150-450); RED BLOOD CELL COUNT(AUTO) 3.17 MIL/uL (4.5-6.0)
[2019-10-31 07:05] LABS: CALCIUM, SERUM 8.5 mg/dL (8.5-10.1); CREATININE 0.4 mg/dL (0.6-1.3); MAGNESIUM 1.7 mg/dL (1.8-2.4); PHOSPHORUS 3.3 mg/dL (2.5-4.9); POTASSIUM 3.8 mmol/L (3.5-5.1)
--- NOTE | 2019-10-31 07:05 | NUR ---
PHOTOGRAPH DEVELOPER NOTE RECEIVED PATIENT ON BED, VENT/ TRACH DEPENDENT, O2 SAT WNL, TOLERATING CURRENT VENT SETTING WELL, NO DISTRESS NOTED, ON TELE ST HR IN 130'S , TELE MONITOR READING , LEFT UPPER ARM MIDLINE SITE CLEAN, DRY AND INTACT, FAUST DRINING TO GRAVITY WITH JOSÉ MIGUEL COLOR URINE, GTF JEVITY 1.2@ 40CC/HR TOLERATING WELL NO RESIDUAL NOTED. HOB ELEVATED. SR UP x3,CALL LIGHT WITHIN EASY REACH, BED LOCKED AND IN LOWEST POSITION, CONTINUE TO MONITOR.
[2019-10-31] MEDS: DOCUSATE SODIUM LIQ 100 MG/10 ML UDC GT SCH (09:33)
[2019-10-31] MEDS: ASCORBIC ACID 500 MG TABLET GT SCH (09:33)
[2019-10-31] MEDS: PANTOPRAZOLE 40 MG/PACK PACK NG SCH (09:34)
[2019-10-31] MEDS: ENOXAPARIN SODIUM 40 MG/0.4 ML DISP.SYRIN SQ SCH (09:36)
[2019-10-31] MEDS: CHLORHEXIDINE GLUCONATE 15 ML UDC MM SCH ×2 (09:36→16:28)
[2019-10-31] MEDS: FERROUS SULFATE UDC 300 MG/5 ML UDC GT SCH (09:37)
[2019-10-31] MEDS: MULTIVITAMINS,THERAGRAN 1 UDTAB TABLET GT SCH (09:37)
[2019-10-31] MEDS: PROSOURCE / PROSTAT (PYXIS) 30 ML UDC GT SCH (09:39)
[2019-10-31] MEDS: ASPIRIN 81 MG TAB.CHEW PO SCH (09:40)
[2019-10-31] MEDS: Z GUARD REMEDY 2 OZ OINT TP SCH ×3 (09:40→21:23)
--- NOTE | 2019-10-31 11:00 | NUR ---
RN NOTES GASTRIC TUBE FEEDING FORMULAS NOTED IN TRACH SUCTIONING SECRETIONS. DR ZORAN GIANGFED ,TUBE FEEDING HELD AT THIS TIME. CONTINUE TO MONITOR.
[2019-10-31] MEDS: Magnesium 1GM/D5W 100ML PREMIX 100 ML IV SCH ×2 (11:05→12:15)
[2019-10-31] MEDS: VANCOMYCIN 1 GM in IV D5W 250 ML IV SCH (14:24)
[2019-10-31] MEDS: ACETAMINOPHEN 650 MG/20.3 ML UDC NG PRN (16:31)
[2019-10-31] MEDS: IV D5/ 0.9% NACL 1,000 ML IV PRN (17:42)
--- NOTE | 2019-10-31 18:00 | NUR ---
RN NOTES T=98.6 AXILLARY , PT TOLERATING VENT SETTING WELL, STILL SOME TUBE FEEDING FORMULA NOTED IN TRACH SECRETION , TF STILL ON HOLD PER MD ORDER , L UPPER ARM MIDLINE SITE CLEAN, DRY AND INTACT, SR UP x3,CALL LIGHT WITHIN EASY REACH, BED LOCKED AND IN LOWEST POSITION, WILL ENDOSE TO PROTOTYPE ENGINEER MANAGER NURSE FOR CONTINUITY OF CARE .
--- NOTE | 2019-10-31 19:38 | NUR ---
RN OPENING NOTE RECEIVED PT WITH HOB ELEVATED, PT TOLERATING CURRENT VENT SETTINGS, ALFA MIDLINE SITE CLEAN, DRY PATENT AND INTACT, CURRENT TUBE FEEDING OFF. SIDE RAILS UP x3,CALL LIGHT WITHIN REACH, BED LOCKED IN LOWEST POSITION, WILL CONTINUE TO MONITOR PT .
[2019-10-31] MEDS: Z GUARD REMEDY 2 OZ OINT TP PRN ×2 (21:12→21:16)
[2019-11-01] VITALS (7 sets, daily range): BP systolic 90–103; BP diastolic 43–59
[2019-11-01] MEDS: METOCLOPRAMIDE HCL 10 MG TABLET PO SCH ×5 (00:34→23:55)
[2019-11-01] MEDS: MEROPENEM 500 MG in IV NS 0.9% 50 ML IV SCH ×3 (05:05→21:57)
[2019-11-01] MEDS: IV D5/ 0.9% NACL 1,000 ML IV PRN (05:36)
[2019-11-01 06:19] LABS: HEMATOCRIT 27 % (39-51); HEMOGLOBIN 8.8 g/dL (13.5-17.5); LYMPHOCYTES # (AUTO) 0.9 /CMM (0.8-4.8); LYMPHOCYTES % (AUTO) 3.6 % (20.0-44.0); MEAN CORPUSCULAR HGB CONC 33 g/dl (31.0-36.0); MEAN CORPUSCULAR VOLUME 89 fL (80-96); MONOCYTES # (AUTO) 1.4 /CMM (0.1-1.30); MONOCYTES % (AUTO) 5.6 % (2.0-12.0); NEUTROPHILS # (AUTO) 22.2 /CMM (1.8-8.9); NEUTROPHILS % (AUTO) 90.8 % (43.0-81.0); PLATELET COUNT (AUTO) 615 /CMM (150-450); RED BLOOD CELL COUNT(AUTO) 3.01 MIL/uL (4.5-6.0); WHITE BLOOD COUNT (AUTO) 24.5 K/uL (4.3-11.0)
[2019-11-01 06:29] LABS: CALCIUM, SERUM 8.3 mg/dL (8.5-10.1); CREATININE 0.4 mg/dL (0.6-1.3); MAGNESIUM 2.1 mg/dL (1.8-2.4); PHOSPHORUS 3.1 mg/dL (2.5-4.9); POTASSIUM 3.3 mmol/L (3.5-5.1)
--- NOTE | 2019-11-01 06:36 | NUR ---
RN CLOSING NOTE PT NONVERBAL AWAKE WITH HOB ELEVATED, PT TOLERATING CURRENT VENT SETTINGS, D5 NS INFUSING TO ALFA MIDLINE AT 100 ML/HR. SITE IS CLEAN, DRY PATENT AND INTACT, CURRENT TUBE FEEDING OFF. MD TO REEVALUATE TODAY. SIDE RAILS UP x3, CALL LIGHT WITHIN REACH, BED LOCKED IN LOWEST POSITION, ENDORSED TO AM RN FOR LLUVIA
[2019-11-01] MEDS: VANCOMYCIN 1 GM in IV D5W 250 ML IV SCH (08:11)
[2019-11-01] MEDS: JEVITY 1.2 CAL 1,000 ML BOTTLE GT PRN (08:37)
[2019-11-01] MEDS: DOCUSATE SODIUM LIQ 100 MG/10 ML UDC GT SCH (09:03)
[2019-11-01] MEDS: PANTOPRAZOLE 40 MG/PACK PACK NG SCH (09:03)
[2019-11-01] MEDS: MULTIVITAMINS,THERAGRAN 1 UDTAB TABLET GT SCH (09:03)
[2019-11-01] MEDS: ASCORBIC ACID 500 MG TABLET GT SCH (09:03)
[2019-11-01] MEDS: FERROUS SULFATE UDC 300 MG/5 ML UDC GT SCH (09:03)
[2019-11-01] MEDS: ASPIRIN 81 MG TAB.CHEW PO SCH (09:03)
[2019-11-01] MEDS: CHLORHEXIDINE GLUCONATE 15 ML UDC MM SCH ×2 (09:04→17:31)
[2019-11-01] MEDS: ENOXAPARIN SODIUM 40 MG/0.4 ML DISP.SYRIN SQ SCH (09:05)
[2019-11-01] MEDS: Z GUARD REMEDY 2 OZ OINT TP SCH ×2 (09:10→22:06)
[2019-11-01] MEDS: PROSOURCE / PROSTAT (PYXIS) 30 ML UDC GT SCH (09:10)
[2019-11-01] MEDS ORDERED: POTASSIUM CHLORIDE 20 MEQ POWDER PACKET GT SCH (11:30)
[2019-11-01] MEDS: FLUCONAZOLE (100 MG) 100 MG TABLET PO SCH (18:50)
--- NOTE | 2019-11-01 18:55 | NUR ---
Handoff with night team registered nurse. [place] RN
--- NOTE | 2019-11-01 19:20 | NUR ---
RN OPENING NOTE RECEIVED PT WITH HOB ELEVATED, PT TOLERATING CURRENT VENT SETTINGS, PT IN NO RESPIRATORY DISTRESS SATURATING AT 97%, ON JEVITY 1.2 CURRENTLY RUNNING AT 40 ML/HR, ALFA MIDLINE SITE CLEAN, DRY PATENT AND INTACT, FLUSHING WELL. SIDE RAILS UP x3,CALL LIGHT WITHIN REACH, BED LOCKED IN LOWEST POSITION, WILL CONTINUE TO MONITOR PT
[2019-11-02] VITALS: BP 99/40
[2019-11-02] MEDS: VANCOMYCIN 1 GM in IV D5W 250 ML IV SCH ×2 (01:53→20:08)
[2019-11-02 04:00] VITALS: BP 96/37
[2019-11-02] MEDS: MEROPENEM 500 MG in IV NS 0.9% 50 ML IV SCH ×3 (05:08→23:16)
[2019-11-02] MEDS: METOCLOPRAMIDE HCL 10 MG TABLET PO SCH ×3 (05:12→16:32)
--- NOTE | 2019-11-02 06:29 | NUR ---
RN CLOSING NOTE PT WITH HOB ELEVATED, TOLERATING CURRENT VENT SETTINGS, PT IN NO RESPIRATORY DISTRESS CURRENTLY SATURATING AT 96%, ON JEVITY 1.2 CURRENTLY RUNNING AT 45 ML/HR, ALFA MIDLINE SITE CLEAN, DRY PATENT AND INTACT, FLUSHING WELL. SIDE RAILS UP x3,CALL LIGHT WITHIN REACH, BED LOCKED IN LOWEST POSITION. ENDORSED TO AM RN FOR LLUVIA
[2019-11-02 07:11] LABS: CALCIUM, SERUM 8.5 mg/dL (8.5-10.1); CREATININE 0.3 mg/dL (0.6-1.3); POTASSIUM 3.2 mmol/L (3.5-5.1)
--- NOTE | 2019-11-02 07:25 | NUR ---
MS RN RECEIVED ON BED, NON VERBAL PATIENT W/ TRACH,G TUBE INTACT W/ FEEDING ON,TOLERATED WELL W/O RESIDUAL, PATIENT IS CONTRACTED, REPOSITIONED FOR COMFORT,ALL NEEDS ATTENDED.
[2019-11-02 08:00] VITALS: BP 104/55
--- NOTE | 2019-11-02 10:00 | NUR ---
MS LYLE DUE MEDS GIVEN,VIA G TUBE,TOLERATED WELL.
--- NOTE | 2019-11-02 10:06 | NUR ---
WOUND CARE FOLLOW UP: REVIEWED CHART AND PHOTO DOCUMENTATION WHICH CONTINUES TO SHOW INTACT DEEP TISSUE INJURIES WELL SCARRING. PT VERY THIN AND BONY. FOLLOWED BY DIETARY. PT ON PROSPER ISOFLEX LOW AIRLOSS BED. ALL SKIN PROTECTION MEASURES IN PLACE AND DISCUSSED WITH NURSING STAFF. MD IN AGREEMENT WITH PLAN OF CARE.
[2019-11-02] MEDS: CHLORHEXIDINE GLUCONATE 15 ML UDC MM SCH ×2 (10:31→16:32)
[2019-11-02] MEDS: FERROUS SULFATE UDC 300 MG/5 ML UDC GT SCH (10:31)
[2019-11-02] MEDS: DOCUSATE SODIUM LIQ 100 MG/10 ML UDC GT SCH (10:31)
[2019-11-02] MEDS: ASCORBIC ACID 500 MG TABLET GT SCH (10:32)
[2019-11-02] MEDS: PANTOPRAZOLE 40 MG/PACK PACK NG SCH (10:32)
[2019-11-02] MEDS: FLUCONAZOLE (100 MG) 100 MG TABLET PO SCH (10:32)
[2019-11-02] MEDS: MULTIVITAMINS,THERAGRAN 1 UDTAB TABLET GT SCH (10:32)
[2019-11-02] MEDS: POTASSIUM CHLORIDE 20 MEQ POWDER PACKET GT SCH ×2 (11:19→11:42)
[2019-11-02 12:00] VITALS: BP_SYST 104; BP_SYST 107; BP_DIAS 55; BP_DIAS 64
[2019-11-02] MEDS: Z GUARD REMEDY 2 OZ OINT TP SCH ×2 (13:50→23:17)
[2019-11-02] MEDS: PROSOURCE / PROSTAT (PYXIS) 30 ML UDC GT SCH (13:50)
[2019-11-02] MEDS: JEVITY 1.2 CAL 1,000 ML BOTTLE GT PRN (16:09)
--- NOTE | 2019-11-02 17:42 | NUR ---
MS RN ON BED, NO DISTRESS NOTED,ALL NEEDS ATTENDED.
[2019-11-02 20:00] VITALS: BP 83/53
[2019-11-02] MEDS ORDERED: AMIODARONE HCL 200 MG TABLET GT SCH (20:00)
[2019-11-02] MEDS ORDERED: AMIODARONE HCL 200 MG TABLET PO SCH (20:00)
--- NOTE | 2019-11-02 20:00 | NUR ---
RN NOTES RECEIVED PT. AWAKE, OBTUNDED, VENT DEPENDENT, ON G-TUBE FEEDING @ 45 ML /HOUR, NO RESIDUAL NOTED, PT. IS TOLERATING FAIRLY, ST - HR-149- 153, PT HAS TEMP OF 101.3 - TYLENOL 650MG VIA G-TUBE GIVEN .F/C DRAINING TEA COLORED URINE, SIDERAILS UPX2, WILL CONTINUE TO MONITOR
[2019-11-02] MEDS: ACETAMINOPHEN 650 MG/20.3 ML UDC NG PRN (20:07)
[2019-11-03] VITALS: BP 98/57
--- NOTE | 2019-11-03 | NUR ---
RN NOTES PT. TEMP WENT DOWN TO 98.2
[2019-11-03] MEDS: METOCLOPRAMIDE HCL 10 MG TABLET PO SCH ×4 (00:34→17:01)
[2019-11-03] MEDS: ACETAMINOPHEN 650 MG/20.3 ML UDC NG PRN ×3 (01:13→07:44)
--- NOTE | 2019-11-03 01:15 | NUR ---
RN NOTES PT LOOKS IN PAIN- [id number] -GTUBE WAS GIVEN
[2019-11-03 04:00] VITALS: BP 101/58
--- NOTE | 2019-11-03 04:00 | NUR ---
RN NOTES LATEST TEMP 98.1
[2019-11-03] MEDS: MEROPENEM 500 MG in IV NS 0.9% 50 ML IV SCH ×3 (05:01→20:59)
--- NOTE | 2019-11-03 06:25 | NUR ---
RN NOTES PT. LOOKS IN PAIN- TYLENOL 650 MG VIA GT, WAS GIVEN, NOT IN DISTRESS, GTUBE NO RESIDUAL, MORNING CARE RENDERED, PT. NEEDS ATTENDED
[2019-11-03 06:50] LABS: BASOPHILS % (AUTO) 0.1 % (0.0-2.0); HEMATOCRIT 26 % (39-51); HEMOGLOBIN 8.2 g/dL (13.5-17.5); LYMPHOCYTES # (AUTO) 1.2 /CMM (0.8-4.8); LYMPHOCYTES % (AUTO) 4.6 % (20.0-44.0); MEAN CORPUSCULAR HGB CONC 32 g/dl (31.0-36.0); MEAN CORPUSCULAR VOLUME 89 fL (80-96); MONOCYTES # (AUTO) 0.8 /CMM (0.1-1.30); NEUTROPHILS # (AUTO) 24.4 /CMM (1.8-8.9); NEUTROPHILS % (AUTO) 92.3 % (43.0-81.0); PLATELET COUNT (AUTO) 559 /CMM (150-450); RED BLOOD CELL COUNT(AUTO) 2.86 MIL/uL (4.5-6.0); WHITE BLOOD COUNT (AUTO) 26.4 K/uL (4.3-11.0)
[2019-11-03 07:22] LABS: CALCIUM, SERUM 8.2 mg/dL (8.5-10.1); CREATININE 0.4 mg/dL (0.6-1.3); MAGNESIUM 1.9 mg/dL (1.8-2.4); PHOSPHORUS 2.3 mg/dL (2.5-4.9); POTASSIUM 3.7 mmol/L (3.5-5.1)
--- NOTE | 2019-11-03 07:30 | NUR ---
rn notes received patient in bed, asleep but awaken by touch, patient nonverbal, trach at midline, on vent, tolerating vent setting. no sign of shortness of breath noted. sinus tachy on the monitor with hr on the 120s. with ongoing gtf at 45cc/hr, patient tolerating well, no gastric residual taken on aspiration, iv access on the site in place and intact, flushing well. hob elevated. safetyb measures in place. call light place within reach, will continue to monitor patient accordingly
[2019-11-03] MEDS: CHLORHEXIDINE GLUCONATE 15 ML UDC MM SCH ×2 (07:43→16:41)
[2019-11-03] MEDS: Z GUARD REMEDY 2 OZ OINT TP SCH ×2 (07:44→21:00)
[2019-11-03] MEDS: FERROUS SULFATE UDC 300 MG/5 ML UDC GT SCH (07:44)
[2019-11-03] MEDS: PANTOPRAZOLE 40 MG/PACK PACK NG SCH (07:44)
[2019-11-03] MEDS: DOCUSATE SODIUM LIQ 100 MG/10 ML UDC GT SCH (07:44)
[2019-11-03] MEDS: MULTIVITAMINS,THERAGRAN 1 UDTAB TABLET GT SCH (07:44)
[2019-11-03] MEDS: PROSOURCE / PROSTAT (PYXIS) 30 ML UDC GT SCH (07:45)
[2019-11-03 08:00] VITALS: BP 100/59
[2019-11-03] MEDS: ASCORBIC ACID 500 MG TABLET GT SCH (08:04)
[2019-11-03] MEDS: FLUCONAZOLE (100 MG) 100 MG TABLET PO SCH (08:04)
[2019-11-03] MEDS: MORPHINE SULFATE INJ 2 MG/ML DISP.SYRIN IV PRN ×2 (10:15→14:47)
--- NOTE | 2019-11-03 10:30 | NUR ---
BLOODY SPUTUM DR. DAVID MADE AWARE OF BLOODY SPUTUM. NNO GIVEN. PER DR. DAVID LONG PTS H AND H ARE STABLE, NOTHING NEEDS TO BE DONE FOR NOW.
[2019-11-03 12:00] VITALS: BP_SYST 90; BP_SYST 98; BP_DIAS 52
[2019-11-03] MEDS ORDERED: POTASSIUM PHOSPHATE MM 15 MMOL in IV NS 0.9% 250 ML IV SCH (12:30)
[2019-11-03] MEDS: POTASSIUM PHOSPHATE MM 7.5 MMOL in IV NS 0.9% 100 ML IV SCH ×2 (13:26→15:57)
[2019-11-03] MEDS: VANCOMYCIN 1 GM in IV D5W 250 ML IV SCH (13:27)
[2019-11-03 16:00] VITALS: BP 98/52
--- NOTE | 2019-11-03 18:22 | NUR ---
VP HR DIVERSITY CLOSING NOTE PT IN BED. OBTUNDED. NO CARDIAC OR RESP DISTRESS NOTED. ON TELE MONITOR WITH SINUS TACHY WITH HR OF 115-120S. PT WITH HOB ELEVATED, TOLERATING CURRENT VENT SETTINGS, PT IN NO RESPIRATORY DISTRESS CURRENTLY SATURATING AT 96%, ON JEVITY 1.2 CURRENTLY RUNNING AT 45 ML/HR, ALFA MIDLINE SITE CLEAN, DRY PATENT AND INTACT, FLUSHING WELL. SIDE RAILS UP x3,CALL LIGHT WITHIN REACH, BED LOCKED IN LOWEST POSITION. ALL NEEDS MET AND ATTENDED.
--- NOTE | 2019-11-03 19:51 | NUR ---
RT NOTE PT RECEIVED TRACHED ON MECHANICAL VENTILATION. PORTEX [address] SX DONE, TRACH SECURED AND PATENT. LARGE THICK RED BLOODY SECRETIONS NOTED. LYLE NIETO AWARE. ALARMS ON AND AUDIBLE. CONT. PULSE OX CONNECTED. WILL MONITOR T/O SHIFT. Addendum: 11/03/19 at 1952 by YASHIRA HOPSON RT Amended: Links added.
[2019-11-03 20:00] VITALS: BP 116/68
--- NOTE | 2019-11-03 20:18 | NUR ---
SPOKE TO MOTHER RYAN, WANTS UPDATED INFORMATION ABOUT HER SON. WANTS TO FACETIME IF POSSIBLE TOLD HER TO CALL BACK IN A COUPLE HOURS TO ARRANGE FACETIME. NO CONCERNS FROM MOTHER. WILL CONTINUE TO MONITOR PATIENT.
--- NOTE | 2019-11-03 22:17 | NUR ---
1862 CALLED TO ROOM BY RT NOTED PATIENT PALE IN COLOR, LESS RESPONSIVE TO VERBAL STIMULI, NOTED WITH BLOODY TRACHEAL SECRETIONS. O2 SATURATION 93% ON 30% FIO2, VITAL SIGNS FOLLOWS BP 111/58, HR 130S SINUS, T 99, PSYCHIATRIC NURSING AIDE ABBY MADE AWARE AND CAME TO BEDSIDE WITH ORDERS MADE. ORDERS NOTED AND CARRIED OUT. PATIENT BEING CLOSELY MONITORED.
--- NOTE | 2019-11-03 22:50 | NUR ---
SPOKE TO MOTHER RYAN, WAS ABLE TO FACETIME THROUGH IPAD. PATIENT WAS ABLE TO RESPOND BY BLINKING EYES. MOTHER ASKED PATIENT IF HE FELT ALRIGHT AND SAID TO BLINK FOR YES AND PATIENT RESPONDED BY BLINKING. NO CONCERNS FROM MOTHER JUST ASKED FOR ORAL CARE AND TRACH CARE. WILL CONTINUE TO MONITOR PATIENT.
[2019-11-03] MEDS ORDERED: IV NS 0.9% 500 ML IV ONE (23:00)
[2019-11-03 23:10] LABS: BASOPHILS % (AUTO) 0.2 % (0.0-2.0); EOSINOPHILS % (AUTO) 0.1 % (0.0-6.0); HEMATOCRIT 25 % (39-51); HEMOGLOBIN 7.8 g/dL (13.5-17.5); LYMPHOCYTES # (AUTO) 1.1 /CMM (0.8-4.8); LYMPHOCYTES % (AUTO) 4.7 % (20.0-44.0); MEAN CORPUSCULAR HGB CONC 32 g/dl (31.0-36.0); MEAN CORPUSCULAR VOLUME 89 fL (80-96); MONOCYTES # (AUTO) 0.6 /CMM (0.1-1.30); MONOCYTES % (AUTO) 2.5 % (2.0-12.0); NEUTROPHILS # (AUTO) 22.2 /CMM (1.8-8.9); NEUTROPHILS % (AUTO) 92.5 % (43.0-81.0); PLATELET COUNT (AUTO) 480 /CMM (150-450); RED BLOOD CELL COUNT(AUTO) 2.75 MIL/uL (4.5-6.0)
--- NOTE | 2019-11-03 23:19 | NUR ---
CHEST X-RAY CURRENTLY BEING DONE AT BEDSIDE
--- NOTE | 2019-11-03 23:45 | NUR ---
2345 STAT CBC RESULT RELAYED TO ADELE MORA. AWAITING ORDERS.
[2019-11-04] VITALS: BP 110/63
[2019-11-04] MEDS: METOCLOPRAMIDE HCL 10 MG TABLET PO SCH ×4 (00:58→16:29)
[2019-11-04 04:00] VITALS: BP 111/64
[2019-11-04] MEDS: MEROPENEM 500 MG in IV NS 0.9% 50 ML IV SCH ×3 (05:02→20:27)
[2019-11-04 06:28] LABS: BASOPHILS # (AUTO) 0.1 /CMM (0.0-0.2); BASOPHILS % (AUTO) 0.3 % (0.0-2.0); EOSINOPHILS % (AUTO) 0.1 % (0.0-6.0); HEMATOCRIT 24 % (39-51); HEMOGLOBIN 7.5 g/dL (13.5-17.5); LYMPHOCYTES # (AUTO) 1.1 /CMM (0.8-4.8); LYMPHOCYTES % (AUTO) 4.7 % (20.0-44.0); MEAN CORPUSCULAR HGB CONC 32 g/dl (31.0-36.0); MEAN CORPUSCULAR VOLUME 89 fL (80-96); MONOCYTES # (AUTO) 0.7 /CMM (0.1-1.30); MONOCYTES % (AUTO) 3.1 % (2.0-12.0); NEUTROPHILS # (AUTO) 21.4 /CMM (1.8-8.9); NEUTROPHILS % (AUTO) 91.8 % (43.0-81.0); PLATELET COUNT (AUTO) 455 /CMM (150-450); RED BLOOD CELL COUNT(AUTO) 2.65 MIL/uL (4.5-6.0); WHITE BLOOD COUNT (AUTO) 23.3 K/uL (4.3-11.0)
[2019-11-04 06:48] LABS: CREATININE 0.3 mg/dL (0.6-1.3); MAGNESIUM 1.9 mg/dL (1.8-2.4); PHOSPHORUS 3.3 mg/dL (2.5-4.9); POTASSIUM 3.7 mmol/L (3.5-5.1)
--- NOTE | 2019-11-04 06:58 | NUR ---
TELE/RN CLOSING PATIENT IN BED TOLERATING VENT ORDERED. NO SIGN OF ANY SOB. HR PATIENT CONTINUE TO BE SINUS TACHY WITH HR AT 139. PATIENT GTUBE FEEDING OF JEVITY RUNNING AT 45ML/HR WITH NO RESIDUAL. ALL NEED MET. PATIENT STILL HAS RED SECRETION WHEN SUCTIONED. ALL SAFETY PRECAUTIONS APPLIED. WILL ENDORSE PATIENT TO MORNING SHIFT NURSE FOR LLUVIA.
[2019-11-04 08:00] VITALS: BP 92/56
[2019-11-04] MEDS: CHLORHEXIDINE GLUCONATE 15 ML UDC MM SCH ×2 (08:59→16:29)
[2019-11-04] MEDS: DOCUSATE SODIUM LIQ 100 MG/10 ML UDC GT SCH (08:59)
[2019-11-04] MEDS: PANTOPRAZOLE 40 MG/PACK PACK NG SCH (08:59)
[2019-11-04] MEDS: ASCORBIC ACID 500 MG TABLET GT SCH (08:59)
[2019-11-04] MEDS: MULTIVITAMINS,THERAGRAN 1 UDTAB TABLET GT SCH (08:59)
[2019-11-04] MEDS: FERROUS SULFATE UDC 300 MG/5 ML UDC GT SCH (08:59)
[2019-11-04] MEDS: FLUCONAZOLE (100 MG) 100 MG TABLET PO SCH (08:59)
[2019-11-04] MEDS: VANCOMYCIN 1 GM in IV D5W 250 ML IV SCH (08:59)
[2019-11-04] MEDS: PROSOURCE / PROSTAT (PYXIS) 30 ML UDC GT SCH (09:00)
[2019-11-04] MEDS: Z GUARD REMEDY 2 OZ OINT TP SCH ×2 (09:00→21:03)
[2019-11-04 12:00] VITALS: BP 95/59
[2019-11-04] MEDS ORDERED: POTASSIUM CHLORIDE 20 MEQ POWDER PACKET NG SCH (14:00)
--- NOTE | 2019-11-04 14:25 | NUR ---
NON-VERBAL, CONTRACTED, BOTH UPPER AND LOWER EXTREMITIES. TOLERATED TF WELL, AT MAX NOW, 45CC/HR. TACHY STILL, K+ TODAY 3.7M, GOT REPLACED WITH 40MEQ KCLOR VIA GT.
[2019-11-04 16:04] VITALS: BP 105/64
--- NOTE | 2019-11-04 17:57 | NUR ---
per record, no bm, x3days, MIRALAX given today, oncoming shift to follow through. face time started this evening, when family called in.
[2019-11-04 20:00] VITALS: BP 99/44
[2019-11-04] MEDS: ACETAMINOPHEN 650 MG/20.3 ML UDC NG PRN (21:04)
[2019-11-05] VITALS (37 sets, daily range): BP systolic 60–109; BP diastolic 33–65
[2019-11-05] MEDS: METOCLOPRAMIDE HCL 10 MG TABLET PO SCH ×5 (00:27→23:59)
[2019-11-05] MEDS: VANCOMYCIN 1 GM in IV D5W 250 ML IV SCH ×2 (01:09→20:58)
[2019-11-05] MEDS: MEROPENEM 500 MG in IV NS 0.9% 50 ML IV SCH ×3 (05:37→22:00)
[2019-11-05] MEDS: JEVITY 1.2 CAL 1,000 ML BOTTLE GT PRN (06:18)
[2019-11-05 07:11] LABS: EOSINOPHILS % (AUTO) 0.1 % (0.0-6.0); HEMATOCRIT 22 % (39-51); LYMPHOCYTES # (AUTO) 1.2 /CMM (0.8-4.8); LYMPHOCYTES % (AUTO) 8.4 % (20.0-44.0); MEAN CORPUSCULAR HGB CONC 32 g/dl (31.0-36.0); MEAN CORPUSCULAR VOLUME 89 fL (80-96); MONOCYTES # (AUTO) 0.7 /CMM (0.1-1.30); NEUTROPHILS # (AUTO) 12.7 /CMM (1.8-8.9); NEUTROPHILS % (AUTO) 86.5 % (43.0-81.0); PLATELET COUNT (AUTO) 412 /CMM (150-450); RED BLOOD CELL COUNT(AUTO) 2.44 MIL/uL (4.5-6.0); WHITE BLOOD COUNT (AUTO) 14.7 K/uL (4.3-11.0)
--- NOTE | 2019-11-05 07:15 | NUR ---
RN OPENING NOTE: RECEIVED PATIENT IN BED THIS MORNING. PATIENT IS ON VENT, TOLERATING SETTINGS WELL, NO SIGNS OF RESPIRATORY DISTRESS NOTED. NO SIGNS OF ACUTE DISTRESS NOTED. TELE MONITOR SINUS TACHY IN THE 130S. GT SITE C/D/I, TOLERATING TF, HOB ELEVATED. LAFA MIDLINE, C/D/I, FLUSHES WELL, NO SIGNS OF COMPLICATIONS NOTED. SAFETY MEASURES IMPLEMENTED, BED IN LOWEST POSITION, LOCKED, SIDE RAILS UP X2, WILL CONTINUE TO MONITOR PATIENT FOR CHANGES.
[2019-11-05 07:28] LABS: CALCIUM, SERUM 7.8 mg/dL (8.5-10.1); CREATININE 0.3 mg/dL (0.6-1.3); HEMOGLOBIN 6.9 g/dL (13.5-17.5); MAGNESIUM 1.9 mg/dL (1.8-2.4); PHOSPHORUS 3.3 mg/dL (2.5-4.9); POTASSIUM 3.7 mmol/L (3.5-5.1)
[2019-11-05] MEDS: ASCORBIC ACID 500 MG TABLET GT SCH (08:04)
[2019-11-05] MEDS: PANTOPRAZOLE 40 MG/PACK PACK NG SCH (08:04)
[2019-11-05] MEDS: CHLORHEXIDINE GLUCONATE 15 ML UDC MM SCH ×2 (08:04→17:02)
[2019-11-05] MEDS: DOCUSATE SODIUM LIQ 100 MG/10 ML UDC GT SCH (08:04)
[2019-11-05] MEDS: MULTIVITAMINS,THERAGRAN 1 UDTAB TABLET GT SCH (08:04)
[2019-11-05] MEDS: FERROUS SULFATE UDC 300 MG/5 ML UDC GT SCH (08:04)
[2019-11-05] MEDS: FLUCONAZOLE (100 MG) 100 MG TABLET PO SCH (08:06)
[2019-11-05] MEDS: PROSOURCE / PROSTAT (PYXIS) 30 ML UDC GT SCH (08:08)
[2019-11-05] MEDS: IV D5/0.45 NACL 1,000 ML IV PRN (08:09)
[2019-11-05] MEDS: Z GUARD REMEDY 2 OZ OINT TP SCH ×2 (08:09→21:51)
[2019-11-05] MEDS: MORPHINE SULFATE INJ 2 MG/ML DISP.SYRIN IV PRN ×2 (08:16→08:51)
[2019-11-05 08:30] LABS: LYMPHOCYTES % (MANUAL) 5 % (16-48); MONOCYTES % (MANUAL) 5 % (0-11.0); NEUTROPHILS % (MANUAL) 90 (42-76)
--- NOTE | 2019-11-05 08:42 | NUR ---
dr. jang notified patient hgb 6.9 and sbp on 70's with new orders left and carried out.
--- NOTE | 2019-11-05 08:42 | NUR ---
bolus ns 1 liter initiated per md,awaits blood.family made aware.
[2019-11-05] MEDS ORDERED: IV NS 0.9% 1,000 ML IV ONE ×2 (09:00→17:00)
--- NOTE | 2019-11-05 09:05 | NUR ---
WASTED 4MG MORPHINE WITH LYLE MIRANDA.
--- NOTE | 2019-11-05 09:24 | NUR ---
INFORMATION SENT:FACESHEET, PROGRESS NOTES 11/03, 24HRS REPORT,UR 11/03. [facility] TO[id number] [phone] FAX SENT BY JENNIFER
--- NOTE | 2019-11-05 09:49 | NUR ---
PATIENT'S BP REMAINS LOW EVEN AFTER 1L NS BOLUS. INFORMED DR DAVID OF PATIENTS NEW BP 78/42. AWAITING NEW ORDERS.
[2019-11-05] MEDS ORDERED: IV NS 0.9% 500 ML IV STA ×2 (10:01→11:19)
[2019-11-05] MEDS: HYDROCORTISONE SOD SUCCINATE 100 MG/2 ML VIAL IV SCH ×3 (11:23→17:02)
[2019-11-05] MEDS: ACETAMINOPHEN 650 MG/20.3 ML UDC NG PRN (13:27)
--- NOTE | 2019-11-05 13:29 | NUR ---
DR. DAVID NOTIFIED PATIENT TEMPERATURE AND OK TO CONTINUE BLOOD TRANSFUSION AND GIVE PRN TYLENOL,WILL RUN BLOOOD FOR 4 HOURS ORDERED.WILL CONTINUE TO MONITOR.
--- NOTE | 2019-11-05 13:32 | NUR ---
JOSHUA HELD D/T DOSE ALREADY GIVEN AROUND THE SAME TIME.
--- NOTE | 2019-11-05 16:50 | NUR ---
DR DAVID AWARE OF PATIENT'S LOW BP AGAIN EVEN AFTER BLOOD TRANSFUSION. NEW ORDERS FOR 1L NS BOLUS CARRIED OUT AND INFUSING. NEW ORDERS PUT FOR CXR STAT SINCE THE LAST ONE GOT CANCELLED. CONTACTED RADIOLOGY AGAIN AND INFORMED THEM TO COME IN THE EARLIEST CONVENIENCE. WILL CONTINUE TO MONITOR PATIENT'S BP AND KEEP DR DAVID INFORMED.
--- NOTE | 2019-11-05 16:53 | NUR ---
BLOOD TRANSFUSION COMPLETE. WILL CONTINUE TO MONITOR PATIENT.
[2019-11-05] MEDS ORDERED: NOREPINEPHRINE 8 MG in IV NS 0.9% 242 ML IV PRN (18:30)
--- NOTE | 2019-11-05 18:33 | NUR ---
DR. DAVID NOTIFIED PATIENT UNSTABLE V/S DESPITE BLOOD TRANSFUSION AND MULTIPLEBOLUS,REVIEWED MEDS WILL TRANSFER TO ICU.
--- NOTE | 2019-11-05 19:00 | NUR ---
PATIENT TRANSFERRED TO ICU. GAVE REPORT TO LYLE ALVAREZ.
--- NOTE | 2019-11-05 19:20 | NUR ---
RN OPENING NOTES RECEIVED PATIENT REPORT FROM LYLE ALVAREZ. PATIENT FROM [facility] TRANSFERRED TO ICU AT 1900 DUE TO LOW BP, PER REPORT SBP 70'S. PATIENT NONVERBAL. ON MECHANICAL VENT TRACH TOLERATING SETTINGS WELL, SATURATING 100%, NO SIGNS OF DISTRESS. ON TELE MONITOR SINUS TACHY WITH HR 120'S. GT FLUSHING AND PATENT, HOWEVER LEAKING NOTED. FAUST INTACT AND DRAINING WELL. ALFA MIDLINE NOTED, SITE C/D/I. PICC LINE INSERTION PENDING, CONSENT IN CHART. SAFETY MEASURES IN PLACE; CALL LIGHT WITHIN REACH, BED LOCKED AND IN LOWEST POSITION, SIDE RAILS UP X2, HOB ELEVATED. WILL CONTINUE TO MONITOR CLOSELY.
--- NOTE | 2019-11-05 19:35 | NUR ---
RN NOTES PATIENT NOTED WITH LOW BP WITH HR 120'S, PAGED [employer] HOSPITALIST IF OKAY TO START JANAE DRIP INSTEAD OF LEVO ORDERED PRN, STATED OKAY TO START JANAE DRIP PER PROTOCOL, CHARGE NURSE MADE AWARE. WILL START JANAE DRIP PER MD ORDER.
[2019-11-05] MEDS ORDERED: PHENYLEPHRINE 10 MG/ML VIAL ONE (19:48)
[2019-11-05] MEDS: PHENYLEPHRINE 50 MG in IV NS 0.9% 245 ML IV PRN (19:56)
[2019-11-05] MEDS: MICAFUNGIN SODIUM 100 MG in IV NS 0.9% 100 ML IV SCH (20:14)
--- NOTE | 2019-11-05 20:46 | NUR ---
RN NOTES NEW CHRISTOPHER PICC LINE INSERTED BY CENTRAL LINE NURSE CLIF. WILL RESUME IV MEDICATIONS.
[2019-11-06] VITALS (92 sets, daily range): BP systolic 87–131; BP diastolic 41–77
[2019-11-06] MEDS: MEROPENEM 500 MG in IV NS 0.9% 50 ML IV SCH ×3 (04:27→20:19)
[2019-11-06 05:07] LABS: HEMATOCRIT 22 % (39-51); HEMOGLOBIN 7.3 g/dL (13.5-17.5); LYMPHOCYTES # (AUTO) 0.6 /CMM (0.8-4.8); LYMPHOCYTES % (AUTO) 2.5 % (20.0-44.0); MEAN CORPUSCULAR HGB CONC 33 g/dl (31.0-36.0); MEAN CORPUSCULAR VOLUME 88 fL (80-96); MONOCYTES # (AUTO) 0.5 /CMM (0.1-1.30); NEUTROPHILS # (AUTO) 21.1 /CMM (1.8-8.9); NEUTROPHILS % (AUTO) 95.5 % (43.0-81.0); PLATELET COUNT (AUTO) 408 /CMM (150-450); RED BLOOD CELL COUNT(AUTO) 2.54 MIL/uL (4.5-6.0); WHITE BLOOD COUNT (AUTO) 22.1 K/uL (4.3-11.0)
[2019-11-06 05:23] LABS: CALCIUM, SERUM 7.1 mg/dL (8.5-10.1); CREATININE 0.3 mg/dL (0.6-1.3); MAGNESIUM 1.6 mg/dL (1.8-2.4); PHOSPHORUS 2.8 mg/dL (2.5-4.9)
[2019-11-06 05:29] LABS: POTASSIUM 2.2 mmol/L (3.5-5.1)
--- NOTE | 2019-11-06 05:50 | NUR ---
RN NOTES CRITICAL LAB POTASSIUM 2.2 AND GLUCOSE 367, MD MADE AWARE, ORDERED VIA PHONE 40 MEQ KCL PO AND 20 MEQ KCL IV, START ACCUCHECK MILD SLIDING SCALE Q6H, HA1C FOR AM LAB, AND GIVE INSULIN 15 UNITS STAT. WILL ATTEND TO ALL ORDERS.
[2019-11-06] MEDS ORDERED: POTASSIUM CL. PREMIX PERIPHER. 50 ML IV STA (05:55)
[2019-11-06] MEDS ORDERED: POTASSIUM CHLORIDE 20 MEQ POWDER PACKET GT STA (05:55)
[2019-11-06] MEDS ORDERED: DEXTROSE 50%-WATER 50 ML DISP.SYRIN IV PRN (06:00)
[2019-11-06] MEDS: BLOOD SUGAR DIAGNOSTIC 1 EACH STRIP IN SCH ×3 (06:00→17:17)
[2019-11-06] MEDS: METOCLOPRAMIDE HCL 10 MG TABLET PO SCH ×3 (06:19→17:45)
[2019-11-06] MEDS: INSULIN REGULAR, HUMAN 100 UNIT/ML 3 ML VIAL SQ PRN ×3 (06:35→17:43)
[2019-11-06] MEDS: IV D5/0.45 NACL 1,000 ML IV PRN ×2 (06:50→19:57)
--- NOTE | 2019-11-06 07:15 | NUR ---
RN CLOSING NOTES PATIENT SLEEPING IN BED, BUT EASY TO AROUSE, ALERT, NONVERBAL. ON TELE MONITOR SR WITH HR 80'S. ON MECHANICAL VENT TRACH TOLERATING SETTINGS WELL, SATURATING 100%, NO SIGNS OF DISTRESS. GTF TOLERATING WELL, NO RESIDUAL NOTED. FAUST INTACT AND DRAINING WELL. ALFA MIDLINE AND CHRISTOPHER PICC BOTH FLUSHING AND PATENT, SITES C/D/I. JANAE RUNNING AT 0.5MCG, TITRATED PER PROTOCOL, D5 1/2 NS RUNNING AT 75ML/HR, TOLERATING WELL. KEPT PATIENT CLEAN, DRY, AND COMFORTBALE. ALL MD ORDERS ATTENDED. SAFETY MEASURES MAINTAINED. ENDORSED TO AM RN FOR LLUVIA. 40 MEQ KCL POWDER GIVEN AND 10 MEQ KCL IV GIVEN ONCE PER MD ORDER, ANOTHER 10 MEQ KCL PENDING TO BE GIVEN BY AM RN. 15 UNITS ONE TIME DOSE GIVEN PER MD ORDER DUE TO GLUCOSE 367 THIS AM.
[2019-11-06] MEDS ORDERED: POTASSIUM CL. PREMIX PERIPHER. 50 ML IV ONE (07:30)
--- NOTE | 2019-11-06 07:30 | NUR ---
SCARFING MACHINE OPERATOR AM NOTES RECEIVED PT IN BED, OPENS EYES, NON VERBAL ON PORTEX 7 TO VENT WITH SETTING AC 16 TV 450 FIO2 50% PEEP 5. RESPIRATION UNLABORED. SINUS RHYTHM HR 87 AT THIS TIME, NO SOB, NO SIGNS OF PAIN, AFEBRILE, OLD CHEST TUBE SITE CDI DRESSING, CHRISTOPHER PICC LINE TRIPLE LUMEN CDI DRESSING WITH JANAE AT 0.5MCG/HR RUNNING; D5 1/2 AT 75 ML/HR RUNNING ALFA MIDLINE FLUSHES WELL, CDI DRESSING, SITE CLEAR. JEVITY 1.2 RUNNING AT 45 ML/HR. 0 RESIDUAL.NO LEAKAGE. SEE NURSING FLOWSHEET FOR SKIN ISSUES. SUCTION SET UP IN PLACE. WILL TURN AND REPOSITION Q2 HOURS. SAFETY MEASURES IN PLACE. WILL MONITOR CLOSELY.
[2019-11-06] MEDS: ASCORBIC ACID 500 MG TABLET GT SCH (08:32)
[2019-11-06] MEDS: PANTOPRAZOLE 40 MG/PACK PACK NG SCH (08:32)
[2019-11-06] MEDS: HYDROCORTISONE SOD SUCCINATE 100 MG/2 ML VIAL IV SCH ×3 (08:32→17:17)
[2019-11-06] MEDS: FERROUS SULFATE UDC 300 MG/5 ML UDC GT SCH (08:32)
[2019-11-06] MEDS: DOCUSATE SODIUM LIQ 100 MG/10 ML UDC GT SCH (08:32)
[2019-11-06] MEDS: MULTIVITAMINS,THERAGRAN 1 UDTAB TABLET GT SCH (08:32)
[2019-11-06] MEDS: CHLORHEXIDINE GLUCONATE 15 ML UDC MM SCH ×2 (08:32→17:17)
[2019-11-06] MEDS: Z GUARD REMEDY 2 OZ OINT TP SCH ×2 (08:34→20:33)
[2019-11-06] MEDS: PROSOURCE / PROSTAT (PYXIS) 30 ML UDC GT SCH (08:44)
--- NOTE | 2019-11-06 08:48 | NUR ---
RN NOTES PATIENT WHILE BEING CLEANED, DESATURATED TO 84%, RESPIRATORY THERAPIST AT BEDSIDE, SUCTIONED, LARGE AMOUNT OF SEROSANGUINOUS SECRETION. HOB ELEVATED, O2 SATURATION BACK TO NORMAL AT 100%.
[2019-11-06] MEDS ORDERED: POTASSIUM CHLORIDE 20 MEQ POWDER PACKET GT SCH (09:00)
[2019-11-06] MEDS: Magnesium 1GM/D5W 100ML PREMIX 100 ML IV SCH ×2 (09:14→10:48)
--- NOTE | 2019-11-06 09:30 | NUR ---
RN NOTES DUE MEDS GIVEN
[2019-11-06 13:31] LABS: OCCULT BLOOD STOOL NEGATIVE (NEGATIVE)
[2019-11-06 13:34] LABS: CALCIUM, SERUM 7.8 mg/dL (8.5-10.1); CREATININE 0.3 mg/dL (0.6-1.3); MAGNESIUM 2.6 mg/dL (1.8-2.4); POTASSIUM 4.1 mmol/L (3.5-5.1)
[2019-11-06] MEDS: VANCOMYCIN 0.75 GM in IV D5W 250 ML IV SCH (14:43)
[2019-11-06] MEDS: MICAFUNGIN SODIUM 100 MG in IV NS 0.9% 100 ML IV SCH (17:17)
[2019-11-06] MEDS: JEVITY 1.2 CAL 1,000 ML BOTTLE GT PRN (17:17)
[2019-11-06] MEDS: PHENYLEPHRINE 50 MG in IV NS 0.9% 245 ML IV PRN (18:08)
--- NOTE | 2019-11-06 18:44 | NUR ---
RN CLOSING NOTES PATIENT RESTING. WATCHING TV. BLINKS EYE TO QUESTION ANSWERABLE BY YES. ALERT, NONVERBAL. ON TELE MONITOR SR TO SINUS TACH. ON MECHANICAL VENT TRACH TOLERATING SETTINGS WELL, SATURATING 100%, NO SIGNS OF DISTRESS. GTF TOLERATING WELL, NO RESIDUAL NOTED. FAUST INTACT AND DRAINING WELL. ALFA MIDLINE AND CHRISTOPHER PICC BOTH FLUSHING AND PATENT, SITES C/D/I. JANAE RUNNING AT 0.5MCG, TITRATED PER PROTOCOL, D5 1/2 NS RUNNING AT 75ML/HR, TOLERATING WELL. KEPT PATIENT CLEAN, DRY, AND COMFORTBALE. ALL MD ORDERS ATTENDED. SAFETY MEASURES MAINTAINED. ALL NEEDS MET. ENDORSED TO PM RN FOR LLUVIA.
--- NOTE | 2019-11-06 19:30 | NUR ---
RN NOTES RECEIVED PATIENT AWAKE RESPONSIVE TO TACTILE STIMULI AND TO NAME. BLINKS EYES TO ANSWER AND FOLLOWS COMMAND. PT WITH TRACH PORTEX 7 CONNECTED TO VENT SETTING AC 16 TV 450 AND FIO2 50% AND PEEP 5, TOLERATED WELL SATURATION 100%. SR ON TELE MONITOR. GTF JEVITY 1.2 @ 45 ML/HR INTACT AND PATEN WITH NO RESIDUAL . IV SITE ON CHRISTOPHER PICC LINE WITH JANAE 0.5 MCG/KG/MIN AND D5 1/2 NS @ 75 ML./JHR INTACT AND PATENT. KEPT PT CLEAN AND DRY. WILL CONTINUE TO MONITOR.
[2019-11-07] VITALS (94 sets, daily range): BP systolic 85–130; BP diastolic 35–78
[2019-11-07] MEDS: BLOOD SUGAR DIAGNOSTIC 1 EACH STRIP IN SCH ×5 (00:38→23:21)
[2019-11-07] MEDS: METOCLOPRAMIDE HCL 10 MG TABLET PO SCH ×5 (00:39→23:21)
[2019-11-07] MEDS: INSULIN REGULAR, HUMAN 100 UNIT/ML 3 ML VIAL SQ PRN ×5 (00:40→23:32)
[2019-11-07] MEDS: VANCOMYCIN 0.75 GM in IV D5W 250 ML IV SCH ×2 (04:11→15:17)
[2019-11-07] MEDS: MEROPENEM 500 MG in IV NS 0.9% 50 ML IV SCH ×3 (04:12→21:02)
[2019-11-07 04:49] LABS: BASOPHILS % (AUTO) 0.1 % (0.0-2.0); HEMATOCRIT 22 % (39-51); HEMOGLOBIN 7.1 g/dL (13.5-17.5); LYMPHOCYTES # (AUTO) 0.6 /CMM (0.8-4.8); LYMPHOCYTES % (AUTO) 2.5 % (20.0-44.0); MEAN CORPUSCULAR HGB CONC 33 g/dl (31.0-36.0); MEAN CORPUSCULAR VOLUME 88 fL (80-96); MONOCYTES # (AUTO) 0.8 /CMM (0.1-1.30); MONOCYTES % (AUTO) 3.9 % (2.0-12.0); NEUTROPHILS # (AUTO) 20.4 /CMM (1.8-8.9); NEUTROPHILS % (AUTO) 93.5 % (43.0-81.0); PLATELET COUNT (AUTO) 387 /CMM (150-450); RED BLOOD CELL COUNT(AUTO) 2.45 MIL/uL (4.5-6.0); WHITE BLOOD COUNT (AUTO) 21.8 K/uL (4.3-11.0)
[2019-11-07 05:00] LABS: CALCIUM, SERUM 7.4 mg/dL (8.5-10.1); CREATININE 0.3 mg/dL (0.6-1.3); MAGNESIUM 1.9 mg/dL (1.8-2.4); PHOSPHORUS 2.7 mg/dL (2.5-4.9)
[2019-11-07 05:16] LABS: POTASSIUM 2.3 mmol/L (3.5-5.1)
--- NOTE | 2019-11-07 07:00 | NUR ---
RN NOTES RECEIVED PATIENT VENT/TRACH DEPENDENT, AWAKE RESPONSIVE TO TACTILE STIMULI AND TO NAME. BLINKS EYES TO ANSWER AND FOLLOWS COMMAND. TOLERATING CURRENT VENT SETTING WELL, O2 SAT 100%. SR ON TELE MONITOR. GOVIND DRINING TO GRAVITY, GTF JEVITY 1.2 @ 45 ML/HR INTACT AND PATENT WITH NO RESIDUAL . IV SITE ON R UA PICC LINE WITH JANAE 0.3 MCG/KG/MIN AND D5 1/2 NS @ 75 ML/HR INTACT AND PATENT. SR UP x3, BED LOCKED AND IN LOWEST POSITION, KEPT PT CLEAN AND DRY. WILL CONTINUE TO MONITOR.
[2019-11-07] MEDS: POTASSIUM CL. PREMIX PERIPHER. 50 ML IV SCH ×2 (07:21→08:22)
--- NOTE | 2019-11-07 07:36 | NUR ---
RN NOTES INFORMED DR. PRABHAKAR REGARDING PATIENT POTASSIUM 2.3 WITH NEW ORDER TO GIVE KCL 40 MEQ IV NOTED AND CARRIED OUT ORDER. NO SIGNIFICANT CHANGES NOTED. AFEBRILE THROUGHOUT THE SHIFT. TRACH AND VENT TOLERATED WELL ORDERED. KEPT PT CLEAN AND DRY WILL CONTINUE TO MONITOR.
[2019-11-07] MEDS: ASCORBIC ACID 500 MG TABLET GT SCH (08:20)
[2019-11-07] MEDS: DOCUSATE SODIUM LIQ 100 MG/10 ML UDC GT SCH (08:20)
[2019-11-07] MEDS: PANTOPRAZOLE 40 MG/PACK PACK NG SCH (08:20)
[2019-11-07] MEDS: CHLORHEXIDINE GLUCONATE 15 ML UDC MM SCH ×2 (08:20→16:36)
[2019-11-07] MEDS: HYDROCORTISONE SOD SUCCINATE 100 MG/2 ML VIAL IV SCH ×2 (08:20→16:36)
[2019-11-07] MEDS: FERROUS SULFATE UDC 300 MG/5 ML UDC GT SCH (08:20)
[2019-11-07] MEDS: MULTIVITAMINS,THERAGRAN 1 UDTAB TABLET GT SCH (08:21)
[2019-11-07] MEDS: PROSOURCE / PROSTAT (PYXIS) 30 ML UDC GT SCH (08:21)
[2019-11-07] MEDS: Z GUARD REMEDY 2 OZ OINT TP SCH ×2 (08:22→21:03)
[2019-11-07] MEDS: POTASSIUM CHLORIDE 20 MEQ POWDER PACKET NG SCH ×5 (09:15→13:19)
[2019-11-07] MEDS: IV D5/0.45 NACL 1,000 ML IV PRN ×2 (10:03→23:01)
--- NOTE | 2019-11-07 13:00 | NUR ---
RN NOTES MODERATED AMOUNT OF BRIGHT RED SECRETION NOTED DURING ORAL SUCTIONING , DR SIM NOTIFED .CONTINUE TO MONITOR .
[2019-11-07] MEDS: PHENYLEPHRINE 50 MG in IV NS 0.9% 245 ML IV PRN (16:41)
--- NOTE | 2019-11-07 17:00 | NUR ---
RN NOTES PT MOM DOING FACE TIME WITH PT.
[2019-11-07] MEDS: MICAFUNGIN SODIUM 100 MG in IV NS 0.9% 100 ML IV SCH (17:41)
--- NOTE | 2019-11-07 18:00 | NUR ---
RN NOTES BP STABLE, JANAE OFF AT THIS TIME , CONTIN;UE TO MONITOR VSS .
[2019-11-07] MEDS: JEVITY 1.2 CAL 1,000 ML BOTTLE GT PRN (19:15)
--- NOTE | 2019-11-07 21:15 | NUR ---
RN NOTES JANAE GTT RESTARTED DUE TO LOW BP, CONTINUE TO MONITOR.
--- NOTE | 2019-11-07 22:34 | NUR ---
RN NOTES JANAE AT .1MCG/KG/MIN RUNNING AT THIS TIME, BP WNL , NO SIGNIFICANT CHANGES NOTED ONT THIS SHIFT, WILL ENDOSE TO LASER SET UP OPERATOR NURSE FOR CONTINUITY OF CARE
--- NOTE | 2019-11-07 22:48 | NUR ---
ICU/RN RECEIVED PATIENT ON VENTILATOR NON VERBAL WITH NO SIGN OF ANY RESPIRATORY DISTRESS.PATIENT IS ABLE TO COMMUNICATE BY BLINKING FOR YES OR NO QUESTIONS. PATIENT SATURATING AT 99% WITH VENT SETTINGS ORDERED. PATIENT SR HR AT 68 ON BEDSIDE MONITOR. PATIENT HAS A CHRISTOPHER PICC LINE WITH D5 1/2 NS RUNNING AT 75CC/HR AND JANAE RUNNING AT 0.1MCG/KG/MIN. FC DRAINING VIA GRAVITY WITH YELLOW OUTPUT AND NO SIGN OF OBSTRUCTION. GTUBE INTACT AND PATENT WITH 60CC RESIDUAL WITH JEVITY RUNNING AT 45ML/HR. ALL SAFETY PRECAUTIONS APPLIED. WILL CONTINUE TO MONITOR PATIENT THROUGHOUT SHIFT.
[2019-11-08] VITALS (69 sets, daily range): BP systolic 88–114; BP diastolic 33–69
[2019-11-08] MEDS: VANCOMYCIN 0.75 GM in IV D5W 250 ML IV SCH ×2 (01:32→14:26)
--- NOTE | 2019-11-08 04:06 | NUR ---
RT NOTE Pt rec'd trached via portex 7 on [facility] vent on current settings as charted. pt shows no signs of resp distress or sob. Pt sx'd for thick large amt of bloody secretions. Alarms are set and audible. Vent plugged into red outlet. Ambu bag bedside. Will continue to monitor. Addendum: 11/08/19 at 0407 by LATANYA EUCEDA RT Amended: Links added.
[2019-11-08] MEDS: MEROPENEM 500 MG in IV NS 0.9% 50 ML IV SCH ×3 (04:53→21:19)
[2019-11-08] MEDS: METOCLOPRAMIDE HCL 10 MG TABLET PO SCH ×4 (05:00→23:14)
[2019-11-08] MEDS: BLOOD SUGAR DIAGNOSTIC 1 EACH STRIP IN SCH ×4 (05:00→23:14)
[2019-11-08 05:10] LABS: BASOPHILS % (AUTO) 0.1 % (0.0-2.0); LYMPHOCYTES # (AUTO) 0.6 /CMM (0.8-4.8); LYMPHOCYTES % (AUTO) 4.1 % (20.0-44.0); MEAN CORPUSCULAR HGB CONC 33 g/dl (31.0-36.0); MEAN CORPUSCULAR VOLUME 88 fL (80-96); MONOCYTES # (AUTO) 0.9 /CMM (0.1-1.30); MONOCYTES % (AUTO) 6.2 % (2.0-12.0); NEUTROPHILS # (AUTO) 12.5 /CMM (1.8-8.9); NEUTROPHILS % (AUTO) 89.6 % (43.0-81.0); PLATELET COUNT (AUTO) 365 /CMM (150-450); RED BLOOD CELL COUNT(AUTO) 2.27 MIL/uL (4.5-6.0); WHITE BLOOD COUNT (AUTO) 13.9 K/uL (4.3-11.0)
[2019-11-08] MEDS: INSULIN REGULAR, HUMAN 100 UNIT/ML 3 ML VIAL SQ PRN ×2 (05:32→23:26)
[2019-11-08 05:45] LABS: CALCIUM, SERUM 7.3 mg/dL (8.5-10.1); CREATININE 0.3 mg/dL (0.6-1.3); MAGNESIUM 1.8 mg/dL (1.8-2.4); PHOSPHORUS 2.2 mg/dL (2.5-4.9)
[2019-11-08 05:47] LABS: HEMATOCRIT 20 % (39-51); HEMOGLOBIN 6.6 g/dL (13.5-17.5)
[2019-11-08 05:49] LABS: POTASSIUM 2.4 mmol/L (3.5-5.1)
--- NOTE | 2019-11-08 05:51 | NUR ---
CALLED NICKI TO [facility]ACOB CASKET COVERER, DR PRABHAKAR FOR CRITICAL LABS, AWAITING RESPONSE.
[2019-11-08 06:11] LABS: LYMPHOCYTES % (MANUAL) 4 % (16-48); MONOCYTES % (MANUAL) 4 % (0-11.0); NEUTROPHILS % (MANUAL) 92 (42-76)
--- NOTE | 2019-11-08 06:28 | NUR ---
NEW ORDERS FOR CRITICAL LABS FOR HGB OF 6.6 ORDERED 1 UNIT OF PRBC, AND POTASSIUM OF 2.4 ORDERED 40MEQ OF KLOR CON POWDER.
[2019-11-08] MEDS ORDERED: POTASSIUM CHLORIDE 20 MEQ POWDER PACKET GT SCH ×3 (07:30)
--- NOTE | 2019-11-08 07:51 | NUR ---
STEAM CONDITIONER OPERATOR NOTE PATIENT IN BED M WITH TRACH TO VENT SETTING ORDERED ON TELE MONITOR,ST100 WITH FAUST CATH TO GRAVITY WITH YELLOW COLOR URINE ON JEVITY G TUBE FEEDING KEEP HOB ELEVATED AT ALL TIME , BED IN LOWEST AND LOCKED POSITION , WILL MONITOR
[2019-11-08] MEDS: FERROUS SULFATE UDC 300 MG/5 ML UDC GT SCH (08:08)
[2019-11-08] MEDS: CHLORHEXIDINE GLUCONATE 15 ML UDC MM SCH ×2 (08:08→16:07)
[2019-11-08] MEDS: HYDROCORTISONE SOD SUCCINATE 100 MG/2 ML VIAL IV SCH ×2 (08:08→16:07)
[2019-11-08] MEDS: PANTOPRAZOLE 40 MG/PACK PACK NG SCH (08:08)
[2019-11-08] MEDS: MULTIVITAMINS,THERAGRAN 1 UDTAB TABLET GT SCH (08:08)
[2019-11-08] MEDS: DOCUSATE SODIUM LIQ 100 MG/10 ML UDC GT SCH (08:08)
[2019-11-08] MEDS: ASCORBIC ACID 500 MG TABLET GT SCH (08:08)
[2019-11-08] MEDS: Z GUARD REMEDY 2 OZ OINT TP SCH ×2 (08:10→21:20)
--- NOTE | 2019-11-08 08:32 | NUR ---
ASSORTMENT PLANNER NOTE DR CUETO AWARE THAT PATIENT STILL ON JANAE DRIP ORDERED AND OK TO GIVE 40 KCL MEQ AT12PM K 2.4 WILL F\U , ALSO AWAITING FOR BLOOD UNIT
[2019-11-08] MEDS: PROSOURCE / PROSTAT (PYXIS) 30 ML UDC GT SCH (10:02)
--- NOTE | 2019-11-08 10:03 | NUR ---
BLOOD BANK TECHNOLOGIST NOTE BLOOD TRANSFUSION STARTED ORDERED I INIT N PRBC
[2019-11-08] MEDS: POTASSIUM PHOSPHATE MM 5 MMOL in IV NS 0.9% 100 ML IV SCH ×2 (11:12→12:48)
--- NOTE | 2019-11-08 11:55 | NUR ---
EDITORIAL PROJECT MANAGER NOTE UA COLLECTED ORDERED Addendum: 11/08/19 at 1156 by JOSÉ BIRMINGHAM RN PER DR BERNARD LAMAR TRANSFUSE 1 UNIT PRBC
[2019-11-08] MEDS ORDERED: POTASSIUM CHLORIDE 20 MEQ POWDER PACKET GT ONE (12:00)
--- NOTE | 2019-11-08 13:21 | NUR ---
PUBLIC IMPROVEMENT INSPECTOR NOTE BLOOD TRANSFUSION 1 UNIT TRANSFUSED ORDERED ,NO ADVERSE REACTION NOTED , WILL MONITOR , ABLE TO MAKE BM KEEP CLEAN DRY, TURN REPOSITION TOLERATED, RT AT BEDSIDE TRACH SUCTION DONE
[2019-11-08] MEDS: IV D5/0.45 NACL 1,000 ML IV PRN (15:51)
[2019-11-08] MEDS: MICAFUNGIN SODIUM 100 MG in IV NS 0.9% 100 ML IV SCH (17:04)
--- NOTE | 2019-11-08 17:42 | NUR ---
INFORMATION COORDINATOR NOTE TRACH SUCTION DONE BY RT CONT ON IVF ORDERED SPOKE WITH WITH HUSSAIN PHARMACIST X2 STATED THAT WILL BRING JANAE DRIP WILL F\U
[2019-11-08] MEDS: PHENYLEPHRINE 50 MG in IV NS 0.9% 245 ML IV PRN (18:01)
--- NOTE | 2019-11-08 18:59 | NUR ---
OPTICAL GLASS SAWYER NOTE ALL NEEDS ATTENDED ORAL CARE DONE SUCTION DONE TURN REPOSITION , WILL CONT ON VENT SETTING ORDERED AND G TUB FEEDING ,WILL CONT TO MONITOR
--- NOTE | 2019-11-08 19:15 | NUR ---
ICU/RN RECEIVED PATIENT ON VENTILATOR PATIENT IS NON-VERBAL BUT ABLE TO BLINK FOR YES/NO. PATIENT ALSO HAS SOME MINIMAL MOVEMENT TO NOD FO Y/N. SHOWING NO SIGN OF ANY DISTRESS OR SOB. TOLERATING VENT SETTINGS ORDERED WITH SPO2 AT 99%. PATIENT HAS A PICC LINE ON CHRISTOPHER WITH JANAE RUNNING AT 0.2MCG/KG/MIN, AND D5 1/2NS RUNNING AT 75CC/HR, AND TKO INFUSING. PATIENT ALSO HAS MID LINE ON ALFA PATENT AND FLUSHING. FC DRAINING VIA GRAVITY WITH YELLOW OUTPUT. GTUBE IS PATENT WITH JEVITY AT 45CC/HR. ALL SAFETY PRECAUTIONS APPLIED. WILL CONTINUE TO MONITOR PATIENT THROUGHOUT SHIFT.
[2019-11-09] VITALS (54 sets, daily range): BP systolic 91–130; BP diastolic 39–76
--- NOTE | 2019-11-09 00:48 | NUR ---
CALLED AFTER HOURS PHARMACY REGARDING PATIENTS VANCO FOR 0200 NO NEW TROUGH ORDER HAS BEEN PLACED. CHECKED TO SEE IT WAS OK TO GIVE. SPOKE TO OZ AREVALO SAID IT WAS OK TO ADMNISTER AND FOLLOW UP WITH PHARMACY IN THE MORNING REGARDING A NEW TROUGH LEVEL.
[2019-11-09] MEDS: VANCOMYCIN 0.75 GM in IV D5W 250 ML IV SCH ×2 (01:27→13:57)
[2019-11-09 04:47] LABS: EOSINOPHILS % (AUTO) 0.1 % (0.0-6.0); HEMATOCRIT 29 % (39-51); HEMOGLOBIN 9.7 g/dL (13.5-17.5); LYMPHOCYTES # (AUTO) 0.8 /CMM (0.8-4.8); LYMPHOCYTES % (AUTO) 4.2 % (20.0-44.0); MEAN CORPUSCULAR HGB CONC 33 g/dl (31.0-36.0); MEAN CORPUSCULAR VOLUME 88 fL (80-96); MONOCYTES # (AUTO) 0.7 /CMM (0.1-1.30); MONOCYTES % (AUTO) 3.7 % (2.0-12.0); NEUTROPHILS # (AUTO) 18.3 /CMM (1.8-8.9); PLATELET COUNT (AUTO) 527 /CMM (150-450); RED BLOOD CELL COUNT(AUTO) 3.31 MIL/uL (4.5-6.0); WHITE BLOOD COUNT (AUTO) 19.9 K/uL (4.3-11.0)
[2019-11-09 04:55] LABS: CALCIUM, SERUM 7.5 mg/dL (8.5-10.1); CREATININE 0.2 mg/dL (0.6-1.3)
[2019-11-09 05:01] LABS: CHLORIDE,URINE RANDOM 126 mmol/L (55-125); POTASSIUM RNDM,URINE 44 mmol/L (25-125); URINE SODIUM, RANDOM 59 mmol/l (40-220)
--- NOTE | 2019-11-09 05:16 | NUR ---
RECEIVED CRITICAL LAB FOR POTASSIUM (2.2) AND CO2( 42). PAGED DIRECTOR RADIO YAHIR. AWAITING RESPONSE FOR ANY ORDERS.
[2019-11-09 05:17] LABS: POTASSIUM 2.2 mmol/L (3.5-5.1)
[2019-11-09 05:18] LABS: OSMOLALITY,URINE 325 mOS/kg (340-1090)
[2019-11-09] MEDS: MEROPENEM 500 MG in IV NS 0.9% 50 ML IV SCH ×3 (05:37→20:26)
[2019-11-09] MEDS ORDERED: POTASSIUM CL. PREMIX PERIPHER. 50 ML IV ONE (06:00)
[2019-11-09] MEDS ORDERED: POTASSIUM CHLORIDE 20 MEQ POWDER PACKET GT ONE (06:00)
[2019-11-09] MEDS: METOCLOPRAMIDE HCL 10 MG TABLET PO SCH ×3 (06:06→17:14)
[2019-11-09] MEDS: BLOOD SUGAR DIAGNOSTIC 1 EACH STRIP IN SCH ×3 (06:06→17:57)
--- NOTE | 2019-11-09 06:54 | NUR ---
NEW ORDER FROM YAHIR. 40MEQ OF KLOR CON POWER TO GIVE NOW. AND IV BOLUS OF KCL 40MEQ TO INFUSE OVER 4 HOURS. WILL ADMINISTER.
[2019-11-09 07:30] LABS: MAGNESIUM 1.8 mg/dL (1.8-2.4)
--- NOTE | 2019-11-09 07:34 | NUR ---
RN OPENING NOTES RECEIVED PATIENT RESTING IN BED COMFORTABLY, NO S/SX OF DISTRESS AT THIS TIME. PT AOX1, NON-VERBAL, AND BED BOUND. TELE MONITOR SHOWING SR. PT IS ON MECH VENT VIA PORTEX 7 TRACH, TOLERATING SETTINGS WELL. GTUBE IS PATENT AND INTACT, INFUSING JEVITY AT 45 ML/HR. ALFA MIDLINE AND CHRISTOPHER PICC IS PATENT AND INTACT, INFUSING JANAE AT 0.1 MCG/MIN AND D5 1/2 NS AT 75 ML/HR. SAFETY MEASURES HAVE BEEN IMPLEMENTED, CALL LIGHT IS WITHIN REACH, BED IS IN LOWEST AND LOCKED POSITION, SIDE RAILS UP X2, WILL CONTINUE TO MONITOR FOR ANY CHANGES.
[2019-11-09] MEDS: HYDROCORTISONE SOD SUCCINATE 100 MG/2 ML VIAL IV SCH ×2 (08:10→17:09)
[2019-11-09] MEDS: PROSOURCE / PROSTAT (PYXIS) 30 ML UDC GT SCH (08:11)
[2019-11-09] MEDS: PANTOPRAZOLE 40 MG/PACK PACK NG SCH (08:11)
[2019-11-09] MEDS: ASCORBIC ACID 500 MG TABLET GT SCH (08:11)
[2019-11-09] MEDS: CHLORHEXIDINE GLUCONATE 15 ML UDC MM SCH ×2 (08:11→17:08)
[2019-11-09] MEDS: MULTIVITAMINS,THERAGRAN 1 UDTAB TABLET GT SCH (08:11)
[2019-11-09] MEDS: POTASSIUM CHLORIDE 20 MEQ POWDER PACKET NG SCH ×5 (08:11→12:08)
[2019-11-09] MEDS: DOCUSATE SODIUM LIQ 100 MG/10 ML UDC GT SCH (08:11)
[2019-11-09] MEDS: FERROUS SULFATE UDC 300 MG/5 ML UDC GT SCH (08:11)
[2019-11-09] MEDS: Z GUARD REMEDY 2 OZ OINT TP SCH ×2 (09:23→20:55)
--- NOTE | 2019-11-09 10:39 | NUR ---
LYLE NOTES Addendum: 11/09/19 at 1041 by HORACIO COSTA RN PT HAS VANCOMYCIN SCHEDULED AT 1400, NO TROUGH ORDERED. SPOKE WITH PHARMACY, WAS TOLD TROUGH IS NOT NECESSARY AT THIS TIME AND OK TO ADMIN DOSE
[2019-11-09] MEDS: INSULIN REGULAR, HUMAN 100 UNIT/ML 3 ML VIAL SQ PRN ×2 (13:58→18:17)
[2019-11-09] MEDS: MICAFUNGIN SODIUM 100 MG in IV NS 0.9% 100 ML IV SCH (17:14)
--- NOTE | 2019-11-09 19:10 | NUR ---
RN CLOSING NOTES PATIENT IS RESTING IN BED COMFORTABLY, NO DISTRESS AT THIS TIME. HE IS ON MECH VENT, TOLERATING SETTINGS WELL. WOUND CARE HAS BEEN RENDERED ORDERED. NO ACUTE CHANGES OCCURRED THROUGHOUT THE SHIFT, VITAL SIGNS ARE STABLE, PT NEEDS HAVE BEEN MET. SAFETY MEASURES HAVE BEEN IMPLEMENTED, CALL LIGHT IS WITHIN REACH, BED IS IN LOWEST AND LOCKED POSITION, SIDE RAILS UP X2, PT HAS BEEN ENDORSED TO NIGHTSHIFT RN FOR LLUVIA.
--- NOTE | 2019-11-09 19:35 | NUR ---
ICU/ORDER RUNNER REPORT RECEIVED FROM THE TO DAY NURSE. SEE FLOWSHEET FOR ASSESSMENT, SKIN ISSUES WAS ADDRESSED. PT IS NON VERBAL, BUT BLINKS EYES. PT HAS TRACH AND ON VENT WITH SATURATION AT 99%. WILL MONITOR THIS PT AND HIS SATURATION. PT TURNED AND REPOSITIONED FOR COMFORT AND CARE. NO ACUTE DISTRESS SEEN AT THIS TIME.
--- NOTE | 2019-11-09 20:45 | NUR ---
ICU/LATRINE CLEANER PT'S MOTHER CALLED VIA I-PAD THAT IS PT'S ROOM. HELD I-PAD FOR ABOUT 10 MINUTES TO ALLOW FAMILY AND MOTHER TO TALK.
[2019-11-09] MEDS: IV D5/0.45 NACL 1,000 ML IV PRN (20:55)
[2019-11-09] MEDS: MORPHINE SULFATE INJ 2 MG/ML DISP.SYRIN IV PRN (21:10)
--- NOTE | 2019-11-09 21:10 | NUR ---
ICU/DIELECTRIC TESTING MACHINE OPERATOR PT WAS TURNED AND REPOSITIONED FOR COMFORT AND CARE. PT APPEARED TO BE IN PAIN, MOANING. PT HAS PRN MORPHINE 4MG IVP PRN. CHARGE NURSE WAS NOTIFIED ABOUT THE PAIN, RATED AT 10/10 FLACC SCALE, PRN WAS GIVEN. WILL CONTINUE TO MONITOR THIS PT AND HER PAIN.
--- NOTE | 2019-11-09 21:35 | NUR ---
ICU/SENIOR DATA SCIENTIST PT WAS GIVEN PM CARE, ALONG WITH ORAL CARE. PT TOLERATED THIS WELL, REMAINS ON CURRENT VENT SETTING WITH SATURATION AT 100%. PT WAS TURNED AND REPOSITIONED FOR COMFORT AND CARE. WILL CONTINUE TO MONITOR THIS PT, NO ACUTE DISTRESS SEEN AT THIS TIME.
[2019-11-10] VITALS (72 sets, daily range): BP systolic 94–139; BP diastolic 38–80
[2019-11-10] MEDS: METOCLOPRAMIDE HCL 10 MG TABLET PO SCH ×5 (00:08→23:22)
[2019-11-10] MEDS: BLOOD SUGAR DIAGNOSTIC 1 EACH STRIP IN SCH ×5 (00:08→23:20)
[2019-11-10] MEDS: INSULIN REGULAR, HUMAN 100 UNIT/ML 3 ML VIAL SQ PRN ×5 (00:09→23:51)
[2019-11-10] MEDS: VANCOMYCIN 0.75 GM in IV D5W 250 ML IV SCH ×2 (01:30→13:42)
--- NOTE | 2019-11-10 02:30 | NUR ---
ICU/REAL ESTATE INTERNSHIP PT WAS GIVEN AM CARE, ALONG WITH ORAL CARE. PT TOLERATED THIS WELL, REMAINS ON CURRENT VENT SETTING WITH SATURATION AT 100%. PT WAS TURNED AND REPOSITIONED FOR COMFORT AND CARE. WILL CONTINUE TO MONITOR THIS PT, NO ACUTE DISTRESS SEEN AT THIS TIME.
[2019-11-10 04:28] LABS: BASOPHILS % (AUTO) 0.1 % (0.0-2.0); EOSINOPHILS % (AUTO) 0.1 % (0.0-6.0); HEMATOCRIT 28 % (39-51); LYMPHOCYTES # (AUTO) 0.6 /CMM (0.8-4.8); LYMPHOCYTES % (AUTO) 3.7 % (20.0-44.0); MEAN CORPUSCULAR HGB CONC 33 g/dl (31.0-36.0); MEAN CORPUSCULAR VOLUME 89 fL (80-96); MONOCYTES # (AUTO) 0.6 /CMM (0.1-1.30); NEUTROPHILS # (AUTO) 13.7 /CMM (1.8-8.9); NEUTROPHILS % (AUTO) 92.1 % (43.0-81.0); PLATELET COUNT (AUTO) 492 /CMM (150-450); WHITE BLOOD COUNT (AUTO) 14.9 K/uL (4.3-11.0)
[2019-11-10] MEDS: MEROPENEM 500 MG in IV NS 0.9% 50 ML IV SCH ×3 (04:47→20:57)
--- NOTE | 2019-11-10 04:50 | NUR ---
ICU/RETAIL PERFORMANCE SPECIALIST AM LABS WERE DONE ALONG WITH CHEST XRAY AWAIT FOR ANY ABNORMAL RESULTS.
[2019-11-10 04:51] LABS: BILIRUBIN,TOTAL 0.3 mg/dL (0.2-1.0); CREATININE 0.2 mg/dL (0.6-1.3); MAGNESIUM 1.6 mg/dL (1.8-2.4); PHOSPHORUS 2.3 mg/dL (2.5-4.9); POTASSIUM 3.1 mmol/L (3.5-5.1); TOTAL PROTEIN, SERUM 6.1 g/dL (6.4-8.2)
[2019-11-10 05:01] LABS: ALBUMIN 1.3 g/dL (3.4-5.0)
--- NOTE | 2019-11-10 05:45 | NUR ---
ICU/CAMERA TUNING ENGINEER PT'S LAB CAME BACK WITH CO2-43, AND ALB-1.3 CALLED PSYCHIATRIC THERAPIST MD, NO NEW ORDERS RECEIVED.
--- NOTE | 2019-11-10 07:15 | NUR ---
CINNAMON GRINDER NOTES RECEIVED PATIENT NON VERBAL , ABLE TO FOLLOW SIMPLE COMMANDS , BLINKS TO YES OR NO , NO ACUTE DISTRESS NOTED , TOLERATING CURRENT VENT SETTINGS WITH SPO2 OF 100% , TRACH OF PORTEX [address] , SR 85 ON BEDSIDE MONITOR , FC DRAINING VIA GRAVITY , GT PATENT AND INTACT WITH JEVITY @ 45ML/HR INFUSING WELL WITH NO RESIDUALS , ALFA ML IN PLACE PATENT AND INTACT , CHRISTOPHER PICC LINE WITH NEOSYNEPRINE @ 0.1MCG/KG/MIN , D5 1/2 NS @ 75ML/HR INFUSING WELL , ALL NEEDS ATTENDED , WILL CONTINUE TO MONITOR
[2019-11-10] MEDS: CHLORHEXIDINE GLUCONATE 15 ML UDC MM SCH ×2 (08:08→16:43)
[2019-11-10] MEDS: PROSOURCE / PROSTAT (PYXIS) 30 ML UDC GT SCH (08:08)
[2019-11-10] MEDS: MULTIVITAMINS,THERAGRAN 1 UDTAB TABLET GT SCH (08:08)
[2019-11-10] MEDS: ASCORBIC ACID 500 MG TABLET GT SCH (08:08)
[2019-11-10] MEDS: PANTOPRAZOLE 40 MG/PACK PACK NG SCH (08:08)
[2019-11-10] MEDS: HYDROCORTISONE SOD SUCCINATE 100 MG/2 ML VIAL IV SCH ×2 (08:08→16:43)
[2019-11-10] MEDS: DOCUSATE SODIUM LIQ 100 MG/10 ML UDC GT SCH (08:08)
[2019-11-10] MEDS: Z GUARD REMEDY 2 OZ OINT TP SCH ×2 (08:09→20:57)
[2019-11-10] MEDS: FERROUS SULFATE UDC 300 MG/5 ML UDC GT SCH (08:12)
[2019-11-10] MEDS ORDERED: POTASSIUM CHLORIDE 20 MEQ POWDER PACKET GT SCH (08:30)
[2019-11-10] MEDS ORDERED: POTASSIUM PHOSPHATE MM 15 MMOL in IV NS 0.9% 250 ML IV SCH ×2 (08:30→13:00)
--- NOTE | 2019-11-10 08:30 | NUR ---
DESKTOP PUBLISHING OPERATOR NOTES SEEN AND EVALUATED BY DR CUETO , DISCUSSED PT LABS , ALBUMIN OF 1.3 , CO2 OF 43 , OFF JANAE @ 0800 , AFEBRILE , VSS , NO DISTRESS , MODERATE AMOUNT OF BLOODY SECRETIONS NOTED UPON TRACHEAL SUCTIONING , RECEIVED ORDER FOR ELECTROLYTE REPLACEMENT . PER DR FERNANDEZ ORDER ABG DUE TO CO2 OF 43 , ORDER CARRIED OUT
[2019-11-10] MEDS: Magnesium 1GM/D5W 100ML PREMIX 100 ML IV SCH ×2 (08:55→09:49)
[2019-11-10] MEDS: POTASSIUM CL. PREMIX PERIPHER. 50 ML IV SCH ×4 (08:55→12:17)
[2019-11-10 09:11] LABS: ABG BASE EXCESS 19.1 mmol/L; ABG OXYGEN SATURATION 94.5 % (92.0-98.5); ABG PCO2 63.8 mmHg (35.0-45.0); ABG PH 7.472 (7.350-7.450); ABG PO2 64.8 mmHg (75.0-100.0); COHb 0.2 % (0.5-1.5); MetHb 0.3 % (0.0-1.5); PEEP,BG 5 cm H2O; SITE, ABG Right Radial; VT, ABG 450 mL
[2019-11-10] MEDS: acetaZOLAMIDE SODIUM 500 MG/VIAL VIAL IV SCH (12:20)
[2019-11-10] MEDS: IV D5/0.45 NACL 1,000 ML IV PRN (12:43)
[2019-11-10] MEDS: MORPHINE SULFATE INJ 2 MG/ML DISP.SYRIN IV PRN ×3 (13:22→18:32)
--- NOTE | 2019-11-10 15:25 | NUR ---
RT NOTE: PATIENT RECEIVED WITH SHILEY #7 TRACH ON MECHANICAL VENT. ABG DONE AND REPORTED TO WITH NO NEW ORDERS. SUCTIONED AND LAVAGED MODERATE-LARGE AMOUNT OF BLOODY SECRETIONS ( AWARE). VENT ALARMS VERIFIED AND AUDIBLE. VENT PLUGGED INTO RED OUTLET. AMBU BAG AT [facility].
[2019-11-10] MEDS: JEVITY 1.2 CAL 1,000 ML BOTTLE GT PRN (16:43)
[2019-11-10] MEDS: MICAFUNGIN SODIUM 100 MG in IV NS 0.9% 100 ML IV SCH (17:00)
--- NOTE | 2019-11-10 19:05 | NUR ---
GAS PROCESSING PLANT OPERATOR NOTE RECEIVED PATIENT IN BED RESTING, WITH HOB ELEVATED. NON VERBAL. VENT DEPENDANT. BREATHING EVEN AND NON LABORED. IV SITES ON ALFA MIDLINE AND CHRISTOPHER PICC, CLEAN, DRY, AND PATENT. ON IV FLUIDS D5 1/2 NS @ 75 MLS/HR. ON FAUST CATH, URINE IS CLEAR AND YELLOW IN COLOR. ON GT FEEDING, JEVITY @ 45 MLS/HR. PATIENT IS NON-AMBULATORY. TRACHEAL SECRETIONS NOTED MODERATE AMOUNT, RED IN COLOR. IN NO APPARENT DISTRESS NOTED AT THIS TIME. WILL CONTINUE TO MONITOR.
[2019-11-11] VITALS (27 sets, daily range): BP systolic 90–129; BP diastolic 31–78
[2019-11-11] MEDS: VANCOMYCIN 0.75 GM in IV D5W 250 ML IV SCH ×2 (02:23→14:34)
[2019-11-11] MEDS: IV D5/0.45 NACL 1,000 ML IV PRN (02:37)
--- NOTE | 2019-11-11 03:00 | NUR ---
ROLL PANNER NOTE PATIENT TOLERATED BED BATH AT THIS TIME. NO BM NOTED IN THIS SHIFT. ALL WOUND CARE RENDERED. WILL CONTINUE TO MONITOR.
[2019-11-11] MEDS: MEROPENEM 500 MG in IV NS 0.9% 50 ML IV SCH ×3 (04:02→21:24)
[2019-11-11 04:25] LABS: BASOPHILS % (AUTO) 0.2 % (0.0-2.0); HEMATOCRIT 26 % (39-51); HEMOGLOBIN 8.3 g/dL (13.5-17.5); LYMPHOCYTES # (AUTO) 0.4 /CMM (0.8-4.8); LYMPHOCYTES % (AUTO) 2.5 % (20.0-44.0); MEAN CORPUSCULAR HGB CONC 32 g/dl (31.0-36.0); MEAN CORPUSCULAR VOLUME 91 fL (80-96); MONOCYTES # (AUTO) 0.9 /CMM (0.1-1.30); MONOCYTES % (AUTO) 5.3 % (2.0-12.0); NEUTROPHILS # (AUTO) 14.8 /CMM (1.8-8.9); PLATELET COUNT (AUTO) 506 /CMM (150-450); RED BLOOD CELL COUNT(AUTO) 2.85 MIL/uL (4.5-6.0); WHITE BLOOD COUNT (AUTO) 16.1 K/uL (4.3-11.0)
[2019-11-11 04:42] LABS: CALCIUM, SERUM 7.9 mg/dL (8.5-10.1); CREATININE 0.2 mg/dL (0.6-1.3)
[2019-11-11 05:08] LABS: POTASSIUM 2.4 mmol/L (3.5-5.1)
[2019-11-11] MEDS: METOCLOPRAMIDE HCL 10 MG TABLET PO SCH ×4 (05:12→23:24)
[2019-11-11] MEDS: BLOOD SUGAR DIAGNOSTIC 1 EACH STRIP IN SCH ×4 (05:15→23:18)
--- NOTE | 2019-11-11 05:56 | NUR ---
RT Pt received on Shiley 7 trach and on [facility] vent. Alarms are set and audible. Vent is plugged into red outlet w guillermina @ hob. Moderate to large bloody secretions noted. Dr. Gill aware. No respiratory distress noted t/o shift. Addendum: 11/11/19 at 0604 by ZARIA BOWMAN RT Amended: Links added.
--- NOTE | 2019-11-11 06:00 | NUR ---
MACHINE III COREMAKER NOTE RECEIVED CALL FROM LAB FOR CRITICAL VALUES OF POTASSIUM 2.4 AND CO2 44. ANABEL SINCLAIR DNP MADE AWARE. RECEIVED ORDERS FOR KCL REPLACEMENT 60 MEQ IN 6 HOURS. ORDERS NOTED AND CARRIED OUT. WILL CONTINUE TO MONITOR.
--- NOTE | 2019-11-11 06:56 | NUR ---
SENIOR UI WEB DEVELOPER NOTE PATIENT IS IN BED RESTING, BREATHING EVEN AND NON LABORED. NO SOB NOTED, VENT DEPENDANT. NO SIGNIFICANT CHANGES NOTED THROUGHOUT THE NIGHT. ALL DUE MEDS GIVEN AND TOLERATED WELL. PATIENT KEPT CLEAN, DRY, AND COMFORTABLE. REPOSITIONED Q2HRS. WILL ENDORSE TO AM SHIFT RN FOR CONTINUATION OF CARE.
--- NOTE | 2019-11-11 07:52 | NUR ---
CUSTOMER ACCOUNT COORDINATOR NOTES PER DR CUETO ADD 40MEQ POTASSIUM CHLORIDE FOR POTASSIUM RESULT OF 2.6. PATIENT ALREADY HAS 60 MEQ POTASSIUM. TOTAL 100 MEQ POTASSIUM CHLORIDE.
[2019-11-11] MEDS ORDERED: POTASSIUM CL. PREMIX PERIPHER. 50 ML IV SCH ×3 (08:00→14:00)
[2019-11-11] MEDS: POTASSIUM CHLORIDE 20 MEQ POWDER PACKET NG SCH ×5 (08:47→13:41)
[2019-11-11] MEDS: CHLORHEXIDINE GLUCONATE 15 ML UDC MM SCH ×2 (08:47→17:49)
[2019-11-11] MEDS: HYDROCORTISONE SOD SUCCINATE 100 MG/2 ML VIAL IV SCH (08:48)
[2019-11-11] MEDS: FERROUS SULFATE UDC 300 MG/5 ML UDC GT SCH (08:48)
[2019-11-11] MEDS: ASCORBIC ACID 500 MG TABLET GT SCH (08:48)
[2019-11-11] MEDS: MULTIVITAMINS,THERAGRAN 1 UDTAB TABLET GT SCH (08:48)
[2019-11-11] MEDS: DOCUSATE SODIUM LIQ 100 MG/10 ML UDC GT SCH (08:48)
[2019-11-11] MEDS: PROSOURCE / PROSTAT (PYXIS) 30 ML UDC GT SCH (08:48)
[2019-11-11] MEDS: PANTOPRAZOLE 40 MG/PACK PACK NG SCH (08:48)
[2019-11-11] MEDS: Z GUARD REMEDY 2 OZ OINT TP SCH ×2 (08:49→21:53)
[2019-11-11] MEDS: acetaZOLAMIDE SODIUM 500 MG/VIAL VIAL IV SCH (08:51)
--- NOTE | 2019-11-11 12:03 | NUR ---
CARE TAKER NOTES BLOOD GLUCOSE LEVEL 124MG/DL NO INSULIN ADMINISTRATED PER PROTOCOL AND SLIDING SCALE.
[2019-11-11] MEDS: MORPHINE SULFATE INJ 2 MG/ML DISP.SYRIN IV PRN ×3 (12:30→20:38)
--- NOTE | 2019-11-11 12:36 | NUR ---
RT NOTE: PATIENT RECEIVED WITH #[address] ON MECHANICAL VENT. ALARMS VERIFIED AND AUDIBLE. SUCTIONED AND LAVAGED MODERATE-LARGE AMOUNT OF THIN BLOODY SECRETIONS( AWARE). VENT PLUGGED INTO RED OUTLET. AMBU BAG AT [facility].
--- NOTE | 2019-11-11 12:36 | NUR ---
ORDER ENTRY SPECIALIST NOTES PATIENT HAD HR OF 135 , WHEN ASKED IF HE IS IN PAIN HE CLOSED HIS EYES TO YES. MORPHINE ADMINISTRATED FOR PAIN.WILL CONTINUE TO MONITOR THE PT.
[2019-11-11] MEDS: SPIRONOLACTONE 25 MG TABLET PO SCH (14:41)
--- NOTE | 2019-11-11 16:13 | NUR ---
PLANNER SCHEDULER NOTES CONTACTED GEOFF ADAM THE BROTHER FOR WOUND DEBRIDEMENT. CONSENT SIGNED AND PLACED IN THE CHART. WITNESS EDWIN ALVARENGA.
[2019-11-11] MEDS ORDERED: SILVER NITRATE APPLICATOR 1 EA BOX TP ONE (16:30)
[2019-11-11] MEDS ORDERED: LIDOCAINE 1%-EPI 1:100,000 20 ML VIAL TP ONE (16:30)
[2019-11-11] MEDS: MICAFUNGIN SODIUM 100 MG in IV NS 0.9% 100 ML IV SCH (17:56)
[2019-11-11] MEDS: INSULIN REGULAR, HUMAN 100 UNIT/ML 3 ML VIAL SQ PRN ×2 (18:24→23:21)
--- NOTE | 2019-11-11 19:30 | NUR ---
HIDE GRADER NOTES PATIENT IN BED COMFORTABLE ALL NEEDS ATTENDED. NO SOB OR DISCOMFORT NOTED AT THIS TIME. REPORT GIVEN TO ELER FOR TRANSFER . PATIENT WILL BE ON ROOM 315.
--- NOTE | 2019-11-11 20:05 | NUR ---
afternoon babysitter notes transfer pt and care to Rn Angie transfer to room 315 via acls monitor with rt , pts remains on ventilator on same setting ,pts in stable condition .sating 97% on the monitor.
--- NOTE | 2019-11-11 20:30 | NUR ---
RECEIVED FROM ICU, VENTILATOR DEPENDENT, OPENS EYES, NON-VERBAL, HR 122, BLOODY SUCTION OUTPUT, SINUS TACHYCARDIA ON THE TELE, PEG TUBE, AUSCULTATED, 0 RESIDUAL, FLUSHED, JEVITY AT 45ML/HR, EMACIATED, FAUST CATHETER DRAINING WELL, CHRISTOPHER PICC LINE, DIAPHORETIC, FLACCID EXTREMITIES, CONTRACTED BLE, WILL CONTINUE TO MONITOR
--- NOTE | 2019-11-11 22:12 | NUR ---
DESATURATION TO SPO2 80s, RT SUCTIONED WITH BLOODY OUTPUT, FLUSHED WITH NS, SPO2 IMPROVED TO MID 90s. HR ELEVATED 130S TO HIGH 160S, CRIB PAD MAKER ANABEL NOTIFIED, NO NEW ORDER, CONTINUE TO MONITOR PATIENT
[2019-11-11] MEDS: JEVITY 1.2 CAL 1,000 ML BOTTLE GT PRN (23:18)
[2019-11-12] VITALS (7 sets, daily range): BP systolic 93–116; BP diastolic 51–65
[2019-11-12] MEDS: VANCOMYCIN 0.75 GM in IV D5W 250 ML IV SCH ×2 (01:02→14:53)
[2019-11-12] MEDS: METOCLOPRAMIDE HCL 10 MG TABLET PO SCH ×4 (05:06→23:27)
[2019-11-12] MEDS: MEROPENEM 500 MG in IV NS 0.9% 50 ML IV SCH ×3 (05:06→20:22)
[2019-11-12] MEDS: BLOOD SUGAR DIAGNOSTIC 1 EACH STRIP IN SCH ×4 (05:32→23:27)
[2019-11-12] MEDS: INSULIN REGULAR, HUMAN 100 UNIT/ML 3 ML VIAL SQ PRN ×2 (05:39→23:55)
--- NOTE | 2019-11-12 06:12 | NUR ---
ALERT AND AWAKE, NON VERBAL, VENT, INNER CANNULA CHANGED, DRESSING CHANGED, SPO2 REMAINED > 95%, TACHYCARDIA HR 130S TO 150S, STAIN APPLICATOR SINCLAIR AWARE, NO NEW ORDER, BLOODY SUCTION OUTPUT VIA TRACH, PEG TUBE INFUSING WELL, TOLERATED WELL, FAUST CATHETER DRAINING WELL, WOUND CARE TO BUTTOCKS AND HIP PERFORMED, MONITOR SPO2, HR, H/H, FOR WOUND DEBRIDEMENT, CONSENT SIGNED.
[2019-11-12 07:01] LABS: CALCIUM, SERUM 8.2 mg/dL (8.5-10.1); CREATININE 0.2 mg/dL (0.6-1.3); POTASSIUM 3.6 mmol/L (3.5-5.1)
--- NOTE | 2019-11-12 08:00 | NUR ---
LEAFLET OR NEWSPAPER DELIVERER OPENING NOTES RECEIVED PT IN BED AWAKE. NON VERBAL. ON BLINKSS EYES. VENT DEPENDENT WITH TRACHEOSTOMY SIZE POTERX 7. VENT SETTING FOLLOWS: AC- 16, FI02- 40%, TV- 450, PEEP- 5. PT NOTED WIT BLOOD TINGED SPUTUM UPON SUCTIONING. NO CARDIAC OR RESPIRATORY DISTRESS NOTED. NO SS/S OF PAIN OR DISCOMFORT AT THIS TIME. ON CARDIAC TELE MONITOR SHOWING SINUS TACHY WITH HR OF 115. PT HAS FAUST CATH. INTACT, PATENT AND DRAINING WITH CLEAR, YELLOW URINE. ON GTUBE FEEDING WITH JEVITY AT 45ML/HR. TOLERATING GT FEEDING AT THIS TIME. AUSCULTATED FOR PLACEMENT. PLACEMENT CONFIRMED VIA AUSCULTATION. IV ACCESS NOTED ON ALFA MIDLINE AND CHRISTOPHER PICC LINE. INTACT AND PATENT AND FLUSHING WELL. NO S/S OF INFECTION OR INFILTRATION NOTED. SAFETY PRECAUTIONS IN PLACE. BED LOCKED AND IN LOW POSITION. SIDE RAILS UP X 2. BED ALARM ON. WILL CONT TO MONITOR.
--- NOTE | 2019-11-12 08:15 | NUR ---
CO2 LEVELS PER NIGHT NURSE LAB CALLED REGARDING CO2 LEVELS TODAY WITH VALUE OF 40. DR. CUETO CURRENTY IN THE UNIT AND WAS NOTIFIED OF RESULTS. PER DR. CUETO, ITS TRENDING IN THE EXPECTED DIRECTION. NNO GIVEN AT THIS TIME.
[2019-11-12] MEDS: SPIRONOLACTONE 25 MG TABLET PO SCH (09:08)
[2019-11-12] MEDS: ASCORBIC ACID 500 MG TABLET GT SCH (09:08)
[2019-11-12] MEDS: MULTIVITAMINS,THERAGRAN 1 UDTAB TABLET GT SCH (09:08)
[2019-11-12] MEDS: DOCUSATE SODIUM LIQ 100 MG/10 ML UDC GT SCH (09:08)
[2019-11-12] MEDS: PANTOPRAZOLE 40 MG/PACK PACK NG SCH (09:08)
[2019-11-12] MEDS: CHLORHEXIDINE GLUCONATE 15 ML UDC MM SCH ×2 (09:08→16:56)
[2019-11-12] MEDS: FERROUS SULFATE UDC 300 MG/5 ML UDC GT SCH (09:08)
[2019-11-12] MEDS: PROSOURCE / PROSTAT (PYXIS) 30 ML UDC GT SCH (09:12)
[2019-11-12] MEDS: Z GUARD REMEDY 2 OZ OINT TP SCH ×2 (09:48→20:23)
[2019-11-12] MEDS: JEVITY 1.2 CAL 1,000 ML BOTTLE GT PRN (17:11)
[2019-11-12] MEDS: MORPHINE SULFATE INJ 2 MG/ML DISP.SYRIN IV PRN (17:28)
[2019-11-12] MEDS: MICAFUNGIN SODIUM 100 MG in IV NS 0.9% 100 ML IV SCH (17:47)
--- NOTE | 2019-11-12 19:41 | NUR ---
PROJECT ARCHIVIST CLOSING NOTES PT IN BED ASLEEP BUT AROUSABLE. NON VERBAL. ONLY BLINKS EYES. VENT DEPENDENT WITH TRACHEOSTOMY SIZE POTEX 7. VENT SETTING FOLLOWS: AC- 16, FI02- 40%, TV- 450, PEEP- 5. PT NOTED WIT BLOOD TINGED SPUTUM UPON SUCTIONING. NO CARDIAC OR RESPIRATORY DISTRESS NOTED. NO SS/S OF PAIN OR DISCOMFORT AT THIS TIME. ON CARDIAC TELE MONITOR SHOWING SINUS TACHY WITH HR OF 113. PT HAS FAUST CATH. INTACT, PATENT AND DRAINING WITH CLEAR, YELLOW URINE. ON GTUBE FEEDING WITH JEVITY AT 45ML/HR. TOLERATING GT FEEDING AT THIS TIME. AUSCULTATED FOR PLACEMENT. PLACEMENT CONFIRMED VIA AUSCULTATION. IV ACCESS NOTED ON ALFA MIDLINE AND CHRISTOPHER PICC LINE. INTACT AND PATENT AND FLUSHING WELL. NO S/S OF INFECTION OR INFILTRATION NOTED. SAFETY PRECAUTIONS IN PLACE. BED LOCKED AND IN LOW POSITION. SIDE RAILS UP X 2. BED ALARM ON. WILL ENDORSE TO NEXT SHIFT.
--- NOTE | 2019-11-12 19:44 | NUR ---
RT NOTE PT RECEIVED TRACHED ON MECHANICAL VENTILATION. CUFF CHECKED VIA PUBLIC RELATIONS COORDINATOR. AMBU BAG @ BEDSIDE. SX DONE, TRACH SECURED AND PATENT. ALARMS ON AND AUDIBLE. NO DISTRESS NOTED. WILL MONITOR T/O SHIFT. Addendum: 11/12/19 at 1944 by ANASTASIA PERKINS RT Amended: Links added.
--- NOTE | 2019-11-12 20:00 | NUR ---
RN NOTES AWAKE, NON VERBAL, VENT DEPENDENT, SPO2 > 95%, ELEVATED HR 115, NOT IN APPARENT DISTRESS, PEG TUBE INFUSING WELL, FAUST CATHETER DRAINING WITH CLEAR AND YELLOW URINE, FLACCID BUE AND BLE, HEELS OFFLOADED, WILL CONTINUE TO MONITOR.
[2019-11-13] VITALS: BP 137/71
[2019-11-13] MEDS: MORPHINE SULFATE INJ 2 MG/ML DISP.SYRIN IV PRN ×3 (00:46→15:11)
[2019-11-13] MEDS: VANCOMYCIN 0.75 GM in IV D5W 250 ML IV SCH ×2 (01:25→14:38)
[2019-11-13 03:59] VITALS: BP 106/54
[2019-11-13] MEDS: MEROPENEM 500 MG in IV NS 0.9% 50 ML IV SCH ×3 (04:55→22:00)
[2019-11-13] MEDS: BLOOD SUGAR DIAGNOSTIC 1 EACH STRIP IN SCH ×3 (05:00→17:18)
[2019-11-13] MEDS: METOCLOPRAMIDE HCL 10 MG TABLET PO SCH ×3 (05:00→17:18)
[2019-11-13] MEDS: INSULIN REGULAR, HUMAN 100 UNIT/ML 3 ML VIAL SQ PRN (05:22)
--- NOTE | 2019-11-13 06:48 | NUR ---
RN NOTES AWAKE, FLAT AFFECT, VENT DEPENDENT, NO DISTRESS, SINUS TACHYCARDIA WITH HR OF 112 TO 140S, DR. WAGNER AWARE, CHRISTOPHER PICC LINE PATENT, DRESSING DRY AND INTACT, ALFA MIDLINE, SALINE LOCK ONLY, PEG TUBE INFUSING AND TOLERATED WELL, FAUST CATHETER DRAINING WELL, SACRAL WOUND DRESSING DRY AND CLEAN, CONTINUE IV ABX X3 MORE WEEKS, RD WILL FOLLOW 11/15/19.
[2019-11-13 07:08] LABS: BASOPHILS % (AUTO) 0.2 % (0.0-2.0); EOSINOPHILS % (AUTO) 0.3 % (0.0-6.0); HEMATOCRIT 25 % (39-51); HEMOGLOBIN 8.1 g/dL (13.5-17.5); LYMPHOCYTES # (AUTO) 0.8 /CMM (0.8-4.8); LYMPHOCYTES % (AUTO) 4.9 % (20.0-44.0); MEAN CORPUSCULAR HGB CONC 33 g/dl (31.0-36.0); MEAN CORPUSCULAR VOLUME 88 fL (80-96); MONOCYTES # (AUTO) 0.7 /CMM (0.1-1.30); MONOCYTES % (AUTO) 4.7 % (2.0-12.0); NEUTROPHILS # (AUTO) 14.4 /CMM (1.8-8.9); NEUTROPHILS % (AUTO) 89.9 % (43.0-81.0); PLATELET COUNT (AUTO) 539 /CMM (150-450); RED BLOOD CELL COUNT(AUTO) 2.81 MIL/uL (4.5-6.0)
[2019-11-13 07:44] LABS: CALCIUM, SERUM 7.9 mg/dL (8.5-10.1); CREATININE 0.3 mg/dL (0.6-1.3); POTASSIUM 3.7 mmol/L (3.5-5.1)
[2019-11-13 08:00] VITALS: BP 112/61
--- NOTE | 2019-11-13 08:00 | NUR ---
TANKER SERVICE ATTENDANT OPENING NOTES PT IN BED ASLEEP. NON VERBAL. ON BLINKS EYES. VENT DEPENDENT WITH TRACHEOSTOMY SIZE SATURATING AT 99%. TRACH NOTED WITH POTEX 7. VENT SETTING FOLLOWS: AC- 16, FI02- 40%, TV- 450, PEEP- 5. NO CARDIAC OR RESPIRATORY DISTRESS NOTED. NO S/S OF PAIN OR DISCOMFORT AT THIS TIME. ON CARDIAC TELE MONITOR SHOWING SINUS TACHY WITH HR OF 113. PT HAS FAUST CATH. INTACT, PATENT AND DRAINING WITH CLEAR, YELLOW URINE. ON GTUBE FEEDING WITH JEVITY AT 45ML/HR. TOLERATING GT FEEDING WELL. AUSCULTATED FOR PLACEMENT. PLACEMENT CONFIRMED VIA AUSCULTATION. IV ACCESS NOTED ON ALFA MIDLINE AND CHRISTOPHER PICC LINE. INTACT AND PATENT AND FLUSHING WELL. NO S/S OF INFECTION OR INFILTRATION NOTED. SAFETY PRECAUTIONS IN PLACE. BED LOCKED AND IN LOW POSITION. SIDE RAILS UP X 2. BED ALARM ON. CALL LIGHT WITHIN REACH. WILL CONT TO MONITOR.
[2019-11-13] MEDS: ASCORBIC ACID 500 MG TABLET GT SCH (08:25)
[2019-11-13] MEDS: PANTOPRAZOLE 40 MG/PACK PACK NG SCH (08:25)
[2019-11-13] MEDS: CHLORHEXIDINE GLUCONATE 15 ML UDC MM SCH ×2 (08:25→17:18)
[2019-11-13] MEDS: DOCUSATE SODIUM LIQ 100 MG/10 ML UDC GT SCH (08:25)
[2019-11-13] MEDS: SPIRONOLACTONE 25 MG TABLET PO SCH (08:25)
[2019-11-13] MEDS: MULTIVITAMINS,THERAGRAN 1 UDTAB TABLET GT SCH (08:25)
[2019-11-13] MEDS: FERROUS SULFATE UDC 300 MG/5 ML UDC GT SCH (08:25)
[2019-11-13] MEDS: PROSOURCE / PROSTAT (PYXIS) 30 ML UDC GT SCH (08:26)
[2019-11-13] MEDS: Z GUARD REMEDY 2 OZ OINT TP SCH ×2 (08:26→21:00)
--- NOTE | 2019-11-13 09:00 | NUR ---
ORAL CARE AND SUCTIONING ORAL CARE PROVIDED TO PT. SUCTIONING DONE. NO BLOOD TINGED SPUTUM NOTED AT THIS TIME. SPUTUM NOTED TO BE CLOUDY WHITISH INCOLOR. TOLERATED SUCTIONING PROCEDURE WELL.
[2019-11-13 12:00] VITALS: BP 123/67
--- NOTE | 2019-11-13 15:00 | NUR ---
NAUSEA PT APPEARS TO BE NAUSEOUS. HE APPEARS TO BE HURLING. ADMINISTERED ZOFRAN VIA GT PRN. NOTED TO BE EFFECTIVE. NAUSEA CEASED.
[2019-11-13 16:00] VITALS: BP 114/60
--- NOTE | 2019-11-13 16:30 | NUR ---
PAIN PT APPEARED TO BE IN PAIN. FACIAL GRIMACING NOTED AND WAS CRYING. HR WAS ALSO ELEVATED AT 138. REPOSITIONED PT WITH MILK PICKUP DRIVER. THEN ADMINISTERED MORPHINE PRN. NOTED TO BE EFFECTIVE AFTER 3OMIN. PT WAS ABLE TO GO BACK TO SLEEP, HR DECREASED TO 116.
[2019-11-13] MEDS: MICAFUNGIN SODIUM 100 MG in IV NS 0.9% 100 ML IV SCH (17:18)
[2019-11-13] MEDS: ACETAMINOPHEN 650 MG/20.3 ML UDC NG PRN (17:26)
--- NOTE | 2019-11-13 17:30 | NUR ---
LOW GRADE FEVER PT HAS A LOW GRADE FEVER. TEMP AT 99.8. ADMINISTERED TYLENOL 650MG. WILL RE-ASSESS TEMP IN 1 HR.
--- NOTE | 2019-11-13 18:23 | NUR ---
TEMP RE-CHECK PT TEMPERATURE RE-CHECKED. NOT AT 98.7 NOW. TYLENOL 650MG EFFECTIVE WELL COOLING MEASURES THAT WERE PROVIDED.
--- NOTE | 2019-11-13 18:24 | NUR ---
POULTRY CULLER CLOSING NOTES PT IN BED ASLEEP AT THIS TIME. VENT DEPENDENT WITH TRACHEOSTOMY SIZE SATURATING AT 99%. TRACH NOTED WITH POTEX 7. VENT SETTING FOLLOWS: AC- 16, FI02- 40%, TV- 450, PEEP- 5. NO CARDIAC OR RESPIRATORY DISTRESS NOTED. NO S/S OF PAIN OR DISCOMFORT AT THIS TIME. ON CARDIAC TELE MONITOR SHOWING SINUS TACHY WITH HR OF 120S TO 130S. PT HAS FAUST CATH. INTACT, PATENT AND DRAINING WITH CLEAR, YELLOW URINE. ON GTUBE FEEDING WITH JEVITY AT 45ML/HR. TOLERATING GT FEEDING WELL THROUGHOUT THE SHIFT. AUSCULTATED FOR PLACEMENT. PLACEMENT CONFIRMED VIA AUSCULTATION. IV ACCESS NOTED ON ALFA MIDLINE AND CHRISTOPHER PICC LINE. INTACT AND PATENT AND FLUSHING WELL. NO S/S OF INFECTION OR INFILTRATION NOTED. SAFETY PRECAUTIONS IN PLACE. BED LOCKED AND IN LOW POSITION. SIDE RAILS UP X 2. BED ALARM ON. CALL LIGHT WITHIN REACH. WILL ENDORSE TO NEXT SHIFT.
--- NOTE | 2019-11-13 19:15 | NUR ---
tele equipment installation professional initial notes received report form am nurse and checked pt in bed resting with eyes closed. , he's on mechanical ventilator set up by RT as ordered. trach portex #7, TV 450, AC 15, Fio2 40%, PEEP 5. no signs of any acute distress noted at this time. Tele Sinus tach per monitor. He also on G-tube feeding JEVITY at 45 ml/hr, no residual noted at this time. Pt tolerated the g-tube feeding well. no aspiration as well, He also on laureano to gravity with yellow output noted. Kept him warm and comfortable at all times. on semi fowlers position with side rails x2 up and bed in low and lock in position. will continue monitoring.
[2019-11-13 20:00] VITALS: BP 114/58
[2019-11-14] VITALS (19 sets, daily range): BP systolic 91–164; BP diastolic 48–85
[2019-11-14] MEDS: BLOOD SUGAR DIAGNOSTIC 1 EACH STRIP IN SCH ×4 (00:24→17:57)
[2019-11-14] MEDS: METOCLOPRAMIDE HCL 10 MG TABLET PO SCH ×4 (00:24→17:57)
[2019-11-14] MEDS: INSULIN REGULAR, HUMAN 100 UNIT/ML 3 ML VIAL SQ PRN (00:26)
--- NOTE | 2019-11-14 00:32 | NUR ---
tele monitoring and evaluation advisor notes blood sugar checked done 130 , no insulin due at this time. no signs of hypo glycemia noted. routine meds given as well. reposition pt for comfort.
[2019-11-14] MEDS: MORPHINE SULFATE INJ 2 MG/ML DISP.SYRIN IV PRN (00:45)
--- NOTE | 2019-11-14 00:45 | NUR ---
tele meal temperer notes pt noticed moaning and and seem on pain heart rate 156-158 per monitor at the bedside. Morphine IVP administered by RN as ordered for pt. comfort.
[2019-11-14] MEDS: VANCOMYCIN 0.75 GM in IV D5W 250 ML IV SCH ×2 (01:51→14:29)
--- NOTE | 2019-11-14 02:27 | NUR ---
tele early morning notes called rapid response because we noticed patient sat dropping and he's on tachy ,also noted eyes drooling upward ,perspiring and in acute distress . vital signs as FF. BP 164/84, HEART RATE 154, O2 SAT 91 % . RT Hernandez doing ambu bag. Blood sugar 217.
--- NOTE | 2019-11-14 02:31 | NUR ---
tele regroover notes DIRECTOR OF PHYSICAL SECURITY team arrived headed by Tin Can Feeder Tanika, and the rest of the Respiratory team. Tanika ordered stat ABG, cbc, bmp and chest x-ray.
--- NOTE | 2019-11-14 02:39 | NUR ---
tele diesel instructor notes vital signs as ff while doing PATENT EXAMINER. BP 208/96, heart soniya 151, 94 % o2 sat on vent. 02:45- bp 182/ 98, hr 153, o2 sat 92 % on vent. 02:50 BP 179/96. HR 152, o2 sat 90% 02:57 BP 148/91, HR 150 , o2 sat 89% on 100 % vent.
[2019-11-14 02:46] LABS: ABG BASE EXCESS 11.4 mmol/L; ABG OXYGEN SATURATION 94.1 % (92.0-98.5); ABG PCO2 103.9 mmHg (35.0-45.0); ABG PH 7.225 (7.350-7.450); ABG PO2 87.8 mmHg (75.0-100.0); AaDO2 521.3 mmHg; COHb 0.3 % (0.5-1.5); MetHb 0.7 % (0.0-1.5); O2Hb 93.2 % (94.0-97.0); SITE, ABG Left Radial
--- NOTE | 2019-11-14 03:00 | NUR ---
tele continuing education specialist notes' Lucio Santos /ALLA manager division notifed.
--- NOTE | 2019-11-14 03:02 | NUR ---
tele cloth dyer notes seen and checked by Lucio Santos/ALLA ordered received and carried out.
--- NOTE | 2019-11-14 03:02 | NUR ---
tele certified financial planner notes' End of Rapid response. Rapid Response critic form done , will continue closely monitoring while waiting for transfer to ICU.
--- NOTE | 2019-11-14 03:03 | NUR ---
CRITICAL ABG RESULTS RELAYED TO THE NURSE Addendum: 11/14/19 at 0306 by EMA BUSTAMANTE RT Amended: Links added.
[2019-11-14 03:07] LABS: BASOPHILS % (AUTO) 0.1 % (0.0-2.0); HEMOGLOBIN 10.5 g/dL (13.5-17.5)
[2019-11-14 03:13] LABS: HEMATOCRIT 32 % (39-51); LYMPHOCYTES # (AUTO) 0.9 /CMM (0.8-4.8); LYMPHOCYTES % (AUTO) 2.5 % (20.0-44.0); MEAN CORPUSCULAR HGB CONC 32 g/dl (31.0-36.0); MEAN CORPUSCULAR VOLUME 89 fL (80-96); MONOCYTES # (AUTO) 0.6 /CMM (0.1-1.30); MONOCYTES % (AUTO) 1.5 % (2.0-12.0); NEUTROPHILS % (AUTO) 95.9 % (43.0-81.0); PLATELET COUNT (AUTO) 778 /CMM (150-450); RED BLOOD CELL COUNT(AUTO) 3.62 MIL/uL (4.5-6.0)
[2019-11-14 03:18] LABS: WHITE BLOOD COUNT (AUTO) 37.5 K/uL (4.3-11.0)
--- NOTE | 2019-11-14 04:00 | NUR ---
DATABASE ANALYST NOTES PATIENT TRANSFER VIA GURNEY TO THE UNIT ACCOMPANIED BY RT AND PRIMARY NURSE. PATIENT HOOKED TO THE MONITOR. ON VENT SETTING TOLERATING WELL ORDERED. TELE MONITOR READING ST IN 140'S. SKIN CARE PROVIDED. NO S/S OF PAIN OR DISTRESS NOTED. KEPT CLEAN DRY AND COMFORTABLE. SAFETY MEASURES IN PLACE. BED IN LOW AND LOCKED POSITION. CALL LIGHT WITHIN REACH. WILL CONT TO MONITOR.
[2019-11-14 04:04] LABS: BAND % (MANUAL) 23 % (0.0-5.0); LYMPHOCYTES % (MANUAL) 1 % (16-48); MONOCYTES % (MANUAL) 2 % (0-11.0); NEUTROPHILS % (MANUAL) 74 (42-76)
--- NOTE | 2019-11-14 04:05 | NUR ---
tele director hematology notes] transferred pt to ICU as ordered by Lucio Santos after all the stat lab test result . vital signs as FF . BP 165/90. heart rate 151 and o2 sat 95 % . transfer the patient pravin ACLS protocol.
--- NOTE | 2019-11-14 04:49 | NUR ---
RT PATIENT WAS TRANSPORTED TO THE ICU FROM 3RD FLOOR AFTER CRITICAL ABG RESULTS WAS RELAYED TO THE MD. NEW VENT SETTINGS OF AC 20, VT 450, FIO2 100%,PEEP 2 PER ADOLESCENT COORDINATOR YAHIR.WILL CONTINUE TO MONITOR. Addendum: 11/14/19 at 0454 by EMA BUSTAMANTE RT Amended: Links added.
[2019-11-14] MEDS: MEROPENEM 500 MG in IV NS 0.9% 50 ML IV SCH ×3 (04:53→21:00)
[2019-11-14] MEDS ORDERED: NOREPINEPHRINE 8 MG in IV NS 0.9% 242 ML IV PRN (07:00)
--- NOTE | 2019-11-14 07:00 | NUR ---
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 MOVEMENT TO PAIN. ON MECH VENT WITH PRESCRIBED VENT SETTINGS ON BEDSIDE MONITOR - ST 140' F/C PATENT, CLEAR YELLOW DRAINAGE. BED BOUND, SACRAL PRESSURE ULCERS. FEEDING CURRENTLY TURNED OFF DUE TO LAST SHIFT NURSE OBSERVATION. BLOOD IN SPUTUM, ASPIRATION RISK . ALFA MIDLINE CHRISTOPHER PICC LINE PATENT, FLUSHED. NO SIGNS OF INFILTRATION. BED LOCKED LOWEST POSITION CALL LIGHT WITH IN REACH ALL SAFETY MEASURE IMPLEMENTED PER HOSPITAL POLICY
--- NOTE | 2019-11-14 07:42 | NUR ---
WAREHOUSE ORDER FILLER NOTES PATIENT REMAINED STABLE NO S/S OF DISTRESS NOTED.BREATHING NORMAL NO SOB RESPIRATION EVEN NON LABORED. CHRISTOPHER MIDLINE INTACT PATIENT FLUSHED WELL. BED SIDE MONITOR READING ST IN 150'S. KEPT CLEAN AND COMFORTABLE. SAFETY MEASURES IN PLACE, CALL LIGHT WITHIN REACH. ENDORSE PATIENT TO AM NURSE FOR LLUVIA.
[2019-11-14 08:07] LABS: BASOPHILS % (AUTO) 0.1 % (0.0-2.0); HEMATOCRIT 27 % (39-51); HEMOGLOBIN 9.1 g/dL (13.5-17.5); LYMPHOCYTES # (AUTO) 0.5 /CMM (0.8-4.8); LYMPHOCYTES % (AUTO) 1.5 % (20.0-44.0); MEAN CORPUSCULAR HGB CONC 34 g/dl (31.0-36.0); MEAN CORPUSCULAR VOLUME 88 fL (80-96); MONOCYTES # (AUTO) 0.5 /CMM (0.1-1.30); MONOCYTES % (AUTO) 1.7 % (2.0-12.0); NEUTROPHILS # (AUTO) 29.1 /CMM (1.8-8.9); NEUTROPHILS % (AUTO) 96.7 % (43.0-81.0); PLATELET COUNT (AUTO) 617 /CMM (150-450); RED BLOOD CELL COUNT(AUTO) 3.07 MIL/uL (4.5-6.0)
[2019-11-14 08:12] LABS: WHITE BLOOD COUNT (AUTO) 30.1 K/uL (4.3-11.0)
[2019-11-14 08:19] LABS: CALCIUM, SERUM 8.1 mg/dL (8.5-10.1); CREATININE 0.3 mg/dL (0.6-1.3); POTASSIUM 3.3 mmol/L (3.5-5.1)
[2019-11-14 08:34] LABS: BAND % (MANUAL) 23 % (0.0-5.0); LYMPHOCYTES % (MANUAL) 1 % (16-48); METAMYELOCYTES % 1 % (0-0); MONOCYTES % (MANUAL) 2 % (0-11.0); NEUTROPHILS % (MANUAL) 73 (42-76)
[2019-11-14 08:40] LABS: ABG BASE EXCESS 13.7 mmol/L; ABG OXYGEN SATURATION 98.1 % (92.0-98.5); ABG PCO2 57.7 mmHg (35.0-45.0); ABG PH 7.453 (7.350-7.450); ABG PO2 108.5 mmHg (75.0-100.0); AaDO2 546.8 mmHg; COHb 0.2 % (0.5-1.5); MetHb 0.1 % (0.0-1.5); O2Hb 97.8 % (94.0-97.0); SITE, ABG Right Radial
[2019-11-14] MEDS ORDERED: LIDOCAINE 1%-EPI 1:100,000 20 ML VIAL TP ONE (10:00)
[2019-11-14] MEDS ORDERED: SILVER NITRATE APPLICATOR 1 EA BOX TP ONE (10:00)
[2019-11-14] MEDS: ASCORBIC ACID 500 MG TABLET GT SCH (10:04)
[2019-11-14] MEDS: FERROUS SULFATE UDC 300 MG/5 ML UDC GT SCH (10:04)
[2019-11-14] MEDS: DOCUSATE SODIUM LIQ 100 MG/10 ML UDC GT SCH (10:04)
[2019-11-14] MEDS: MULTIVITAMINS,THERAGRAN 1 UDTAB TABLET GT SCH (10:04)
[2019-11-14] MEDS: SPIRONOLACTONE 25 MG TABLET PO SCH (10:05)
[2019-11-14] MEDS: Z GUARD REMEDY 2 OZ OINT TP SCH (10:05)
[2019-11-14] MEDS: PANTOPRAZOLE 40 MG/PACK PACK NG SCH (10:05)
[2019-11-14] MEDS: CHLORHEXIDINE GLUCONATE 15 ML UDC MM SCH ×2 (10:07→17:52)
[2019-11-14] MEDS: PROSOURCE / PROSTAT (PYXIS) 30 ML UDC GT SCH (10:08)
[2019-11-14] MEDS ORDERED: POTASSIUM CHLORIDE 20 MEQ POWDER PACKET NG SCH (11:30)
[2019-11-14] MEDS: MICAFUNGIN SODIUM 100 MG in IV NS 0.9% 100 ML IV SCH (17:50)
[2019-11-14] MEDS: ACETAMINOPHEN 650 MG/20.3 ML UDC NG PRN (17:50)
[2019-11-14] MEDS: JEVITY 1.2 CAL 1,000 ML BOTTLE GT PRN (18:04)
--- NOTE | 2019-11-14 18:24 | NUR ---
BOTTOM WHEELER - CLOSING PATIENT REMAINS STABLE AT THIS TIME. PATIENT NO SIGNS OF ACUTE RESPIRATORY DISTRESS, VENT SETTING CHANGE IN THE AM TO AC-20 / TV 450 50 PERCENT 02 10 PEEP. WOUNDS TX COMPLETED MEDICATION GIVE. RE-STARTED FEEDING BED LOCKED LOWEST POSITION CALL LIGHT WITH IN REACH ALL SAFETY MEASURE IMPLEMENTED PER HOSPITAL POLICY. PATIENT TURN Q2H PER HOSPITAL POLICY
--- NOTE | 2019-11-14 19:30 | NUR ---
SAVINGS TELLER NOTES RECEIVED PATIENT IN BED, ON MECH VENT WITH PRESCRIBED VENT SETTING TOLERATING WELL. BED SIDE MONITOR READING ST IN 130'S- 140'S. CONTINUES ON GTF TOLERATING WELL. IV SITE CHRISTOPHER PICC LINE PATENT FLUSHED NO S/S OF INFILTRATION NOTED. ABD SOFT AND NON DISTENDED. SAFETY MEASURES IN PLACE, CALL LIGHT WITHIN REACH. WILL CONT TO MONITOR FOR LLUVIA.
[2019-11-15] VITALS (52 sets, daily range): BP systolic 68–135; BP diastolic 39–77
[2019-11-15] MEDS: METOCLOPRAMIDE HCL 10 MG TABLET PO SCH ×4 (00:03→17:38)
[2019-11-15] MEDS: INSULIN REGULAR, HUMAN 100 UNIT/ML 3 ML VIAL SQ PRN ×3 (00:07→13:35)
[2019-11-15] MEDS: Z GUARD REMEDY 2 OZ OINT TP SCH ×3 (01:11→21:17)
[2019-11-15] MEDS: VANCOMYCIN 0.75 GM in IV D5W 250 ML IV SCH ×2 (02:00→15:06)
[2019-11-15] MEDS: LORAZEPAM INJ 2 MG/ML VIAL IV PRN (04:08)
[2019-11-15] MEDS: ACETAMINOPHEN 650 MG/20.3 ML UDC NG PRN ×2 (04:08→21:20)
[2019-11-15] MEDS ORDERED: PHENYLEPHRINE 10 MG/ML VIAL ONE (04:42)
[2019-11-15 04:43] LABS: BASOPHILS % (AUTO) 0.1 % (0.0-2.0); EOSINOPHILS % (AUTO) 0.1 % (0.0-6.0); HEMATOCRIT 26 % (39-51); HEMOGLOBIN 8.3 g/dL (13.5-17.5); LYMPHOCYTES # (AUTO) 0.3 /CMM (0.8-4.8); LYMPHOCYTES % (AUTO) 1.1 % (20.0-44.0); MEAN CORPUSCULAR HGB CONC 32 g/dl (31.0-36.0); MEAN CORPUSCULAR VOLUME 90 fL (80-96); MONOCYTES # (AUTO) 0.7 /CMM (0.1-1.30); MONOCYTES % (AUTO) 2.4 % (2.0-12.0); NEUTROPHILS # (AUTO) 26.9 /CMM (1.8-8.9); NEUTROPHILS % (AUTO) 96.3 % (43.0-81.0); PLATELET COUNT (AUTO) 541 /CMM (150-450); RED BLOOD CELL COUNT(AUTO) 2.92 MIL/uL (4.5-6.0); WHITE BLOOD COUNT (AUTO) 27.9 K/uL (4.3-11.0)
[2019-11-15] MEDS: PHENYLEPHRINE 50 MG in IV NS 0.9% 245 ML IV PRN ×2 (04:51→21:59)
[2019-11-15] MEDS: MEROPENEM 500 MG in IV NS 0.9% 50 ML IV SCH ×3 (05:00→20:32)
[2019-11-15 05:51] LABS: CALCIUM, SERUM 8.3 mg/dL (8.5-10.1); CREATININE 0.2 mg/dL (0.6-1.3); POTASSIUM 3.1 mmol/L (3.5-5.1)
[2019-11-15] MEDS: BLOOD SUGAR DIAGNOSTIC 1 EACH STRIP IN SCH ×4 (06:52→17:37)
--- NOTE | 2019-11-15 07:16 | NUR ---
ENTERTAINMENT USHER NOTES PATIENT IS RESTING COMFORTABLY, NO S/S OF DISTRESS NOTED AT THIS TIME. ON [facility] VENT SETTING TOLERATING WELL. BED SIDE MONITOR ST IN 145'S. VITAL SIGNS REMAINED WNL. ON COOLING MEASURES LAST TEMP WAS 98.7. GTF TOLERATING WELL NO RESIDUAL NOTED. WOUND CARE RENDERED ORDERED. KEPT CLEAN AND COMFORTABLE. ALL NEEDS ATTENDED. SAFETY MEASURES IN PLACE, BED IN LOW AND LOCKED POSITION. CALL LIGHT WITHIN REACH. ENDORSE PATIENT TO AM NURSE FOR LLUVIA.
--- NOTE | 2019-11-15 08:20 | NUR ---
INCREASED FIO2 FROM 80% TO 100% DUE TO LOW O2 SATURATION OF 90%. AIRWAY IS PATENT AND SECURE. VENT IS PLUGGED INTO RED OUTLET WITH ALARMS ON AND AUDIBLE. WILL CONTINUE TO MONITOR PT. Addendum: 11/15/19 at 0822 by DALILA LAI RT Amended: Links added.
[2019-11-15] MEDS: POTASSIUM CL. PREMIX PERIPHER. 50 ML IV SCH ×4 (08:34→13:29)
[2019-11-15] MEDS: FERROUS SULFATE UDC 300 MG/5 ML UDC GT SCH (08:34)
[2019-11-15] MEDS: PROSOURCE / PROSTAT (PYXIS) 30 ML UDC GT SCH (08:34)
[2019-11-15] MEDS: ASCORBIC ACID 500 MG TABLET GT SCH (08:35)
[2019-11-15] MEDS: SPIRONOLACTONE 25 MG TABLET PO SCH (08:35)
[2019-11-15] MEDS: CHLORHEXIDINE GLUCONATE 15 ML UDC MM SCH ×2 (08:35→17:37)
[2019-11-15] MEDS: DOCUSATE SODIUM LIQ 100 MG/10 ML UDC GT SCH (08:35)
[2019-11-15] MEDS: PANTOPRAZOLE 40 MG/PACK PACK NG SCH (08:35)
[2019-11-15] MEDS: MULTIVITAMINS,THERAGRAN 1 UDTAB TABLET GT SCH (08:35)
[2019-11-15 09:01] LABS: ABG BASE EXCESS 14.6 mmol/L; ABG OXYGEN SATURATION 97.8 % (92.0-98.5); ABG PCO2 60.1 mmHg (35.0-45.0); ABG PH 7.449 (7.350-7.450); ABG PO2 102.2 mmHg (75.0-100.0); AaDO2 550.7 mmHg; COHb 0.3 % (0.5-1.5); MetHb 0.2 % (0.0-1.5); O2Hb 97.3 % (94.0-97.0); SITE, ABG Left Radial; VENT MODE, BG AC 20 450 100% +10
--- NOTE | 2019-11-15 13:00 | NUR ---
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 RT NOTIFIED NURSE. FOUNDING NOTIFIED CHARGE NURSE. PATIENT WAS FINGERS AND TOES BLUEISH. DR. FERNANDEZ ON SCENE. AMY HERIBERTO ON SCENE. FEEDING STOPPED. INTERVENTIONS COMPLETED . CHEST XRAY ORDERED : ABGS ORDERED . REPEAT XRAY 1600 - DR. FERNANDEZ.
[2019-11-15 14:02] LABS: ABG BASE EXCESS 14.3 mmol/L; ABG OXYGEN SATURATION 91.8 % (92.0-98.5); ABG PCO2 81.1 mmHg (35.0-45.0); ABG PH 7.342 (7.350-7.450); ABG PO2 65.2 mmHg (75.0-100.0); AaDO2 493.4 mmHg; COHb 0.3 % (0.5-1.5); MetHb 0.1 % (0.0-1.5); O2Hb 91.4 % (94.0-97.0); SITE, ABG Left Brachial; VENT MODE, BG AC 20 450 90% +12
--- NOTE | 2019-11-15 17:00 | NUR ---
RACE RELATIONS PROFESSOR NOTIFED FAMILY ABOUT PATIENT SITUATION. PATIENT MIGHT HAVE A POSSIBLE PNEUMOTHORAX ON THE RIGHT SIDE. 1.[address] THAT [address] MEEHAN IS AWARE OF SITUATION. AND NEEDS TO GO TO CT CHEST.
[2019-11-15] MEDS: MICAFUNGIN SODIUM 100 MG in IV NS 0.9% 100 ML IV SCH (17:37)
--- NOTE | 2019-11-15 18:30 | NUR ---
SENIOR INDUSTRIAL ENGINEER - CT CHEST TOOK PATIENT TO CT CHEST PER DR. MEEHAN ORDERS .
--- NOTE | 2019-11-15 19:55 | NUR ---
QUALITY ASSURANCE MONITOR BODY NOTES CT CHEST RESULTS RELAYED TO DR MEEHAN AND DR FERNANDEZ, NO PNEUMOTHORAX. PER MD, NO NEW ORDERS AT THIS TIME
[2019-11-15] MEDS: MORPHINE SULFATE INJ 2 MG/ML DISP.SYRIN IV PRN (21:11)
--- NOTE | 2019-11-15 21:15 | NUR ---
ORTHOPEDIC NURSE NOTES PATIENT NOTED WITH HR PERSISNTENTLY IN THE 140s-150S, POSSIBLY EXPERIENCING PAIN. MORPHINE AND TYLENOL ADMINISTERED ORDERED. WILL MONITOR CLOSELY IN CASE FURTHER DROP IN BP
[2019-11-15] MEDS: Z GUARD REMEDY 2 OZ OINT TP PRN (21:17)
[2019-11-16] VITALS (98 sets, daily range): BP systolic 70–112; BP diastolic 40–68
[2019-11-16] MEDS: BLOOD SUGAR DIAGNOSTIC 1 EACH STRIP IN SCH ×4 (00:20→17:07)
[2019-11-16] MEDS: METOCLOPRAMIDE HCL 10 MG TABLET PO SCH ×4 (00:21→17:08)
[2019-11-16] MEDS: VANCOMYCIN 0.75 GM in IV D5W 250 ML IV SCH ×2 (01:31→14:10)
--- NOTE | 2019-11-16 02:00 | NUR ---
PHOTOENGRAVING PROOFER NOTES AFTER ADMINISTRATION OF IV MORPHINE, HR NOTED TO DROP LOW 117, BUT BP DROPPED TO THE SYSTOLIC 60'S REQUIRING THE NEED TO RESTART NEOSYNEPHRINE GTT. BP WNL WITH JANAE @ 2.8MCG/KG/MIN
[2019-11-16] MEDS ORDERED: PHENYLEPHRINE 10 MG/ML VIAL ONE (04:24)
[2019-11-16 04:29] LABS: BASOPHILS % (AUTO) 0.1 % (0.0-2.0); HEMATOCRIT 25 % (39-51); LYMPHOCYTES % (AUTO) 3.4 % (20.0-44.0); MEAN CORPUSCULAR HGB CONC 33 g/dl (31.0-36.0); MEAN CORPUSCULAR VOLUME 89 fL (80-96); MONOCYTES # (AUTO) 1.2 /CMM (0.1-1.30); MONOCYTES % (AUTO) 3.9 % (2.0-12.0); NEUTROPHILS # (AUTO) 28.5 /CMM (1.8-8.9); NEUTROPHILS % (AUTO) 92.6 % (43.0-81.0); PLATELET COUNT (AUTO) 589 /CMM (150-450); RED BLOOD CELL COUNT(AUTO) 2.78 MIL/uL (4.5-6.0)
[2019-11-16 04:50] LABS: BILIRUBIN,TOTAL 0.4 mg/dL (0.2-1.0); CALCIUM, SERUM 8.4 mg/dL (8.5-10.1); CREATININE 0.5 mg/dL (0.6-1.3); MAGNESIUM 1.6 mg/dL (1.8-2.4); PHOSPHORUS 3.3 mg/dL (2.5-4.9); POTASSIUM 3.7 mmol/L (3.5-5.1); TOTAL PROTEIN, SERUM 5.6 g/dL (6.4-8.2)
[2019-11-16] MEDS: MEROPENEM 500 MG in IV NS 0.9% 50 ML IV SCH ×3 (04:58→20:31)
[2019-11-16] MEDS: PHENYLEPHRINE 50 MG in IV NS 0.9% 245 ML IV PRN ×4 (05:02→20:34)
[2019-11-16 05:05] LABS: ALBUMIN 1.1 g/dL (3.4-5.0); WHITE BLOOD COUNT (AUTO) 30.8 K/uL (4.3-11.0)
[2019-11-16 05:51] LABS: NEUTROPHILS % (MANUAL) 75 (42-76)
[2019-11-16 05:52] LABS: BAND % (MANUAL) 19 % (0.0-5.0); LYMPHOCYTES % (MANUAL) 4 % (16-48); MONOCYTES % (MANUAL) 2 % (0-11.0)
--- NOTE | 2019-11-16 07:00 | NUR ---
VEGETABLE GROWER NOTES PATIENT RESTING IN BED, RESPIRATIONS SYNCHRONIZED WITH THE VENTILATOR. PATIENT REMAINS ON NEOSYNEPHRINE DRIP @ 2.8MCG/KG/MIN
--- NOTE | 2019-11-16 07:15 | NUR ---
RN INITIAL NOTES RECEIVED PT OBTUNDED. TRACH IN PLACE. TOLERATING VENT. HOB ELEVATED. NO RESPIRATORY DISTRESS NOTED. NO SOB NOTED. NO SIGNS OF PAIN NOTED. SUBCUTANEOUS EMPHYSEMA NOTED. CHRISTOPHER PICC IN PLACE. ON JANAE AT 2.8MCG/KG/MIN. WILL TITRATE ACCORDINGLY. G-TUBE IN PLACE, CLAMPED. FC IN PLACE. BLE ELEVATED. WILL CLOSELY MONITOR
[2019-11-16] MEDS: FERROUS SULFATE UDC 300 MG/5 ML UDC GT SCH (08:43)
[2019-11-16] MEDS: ASCORBIC ACID 500 MG TABLET GT SCH (08:43)
[2019-11-16] MEDS: SPIRONOLACTONE 25 MG TABLET PO SCH (08:43)
[2019-11-16] MEDS: CHLORHEXIDINE GLUCONATE 15 ML UDC MM SCH ×2 (08:43→16:09)
[2019-11-16] MEDS: MULTIVITAMINS,THERAGRAN 1 UDTAB TABLET GT SCH (08:43)
[2019-11-16] MEDS: PANTOPRAZOLE 40 MG/PACK PACK NG SCH (08:43)
[2019-11-16] MEDS: DOCUSATE SODIUM LIQ 100 MG/10 ML UDC GT SCH (08:43)
[2019-11-16] MEDS: Z GUARD REMEDY 2 OZ OINT TP SCH ×2 (08:44→21:27)
[2019-11-16] MEDS: PROSOURCE / PROSTAT (PYXIS) 30 ML UDC GT SCH (08:44)
[2019-11-16] MEDS: ACETAMINOPHEN 650 MG/20.3 ML UDC NG PRN ×2 (09:45→20:31)
[2019-11-16] MEDS: LORAZEPAM INJ 2 MG/ML VIAL IV PRN (09:45)
[2019-11-16 10:53] LABS: ABG BASE EXCESS 15.8 mmol/L; ABG OXYGEN SATURATION 95.7 % (92.0-98.5); ABG PCO2 64.7 mmHg (35.0-45.0); ABG PH 7.436 (7.350-7.450); AaDO2 425.5 mmHg; COHb 0.3 % (0.5-1.5); MetHb 0.3 % (0.0-1.5); O2Hb 95.1 % (94.0-97.0); PEEP,BG 8 cm H2O; SITE, ABG Right Radial; VT, ABG 450 mL
[2019-11-16] MEDS: Magnesium 1GM/D5W 100ML PREMIX 100 ML IV SCH ×2 (11:28→13:17)
--- NOTE | 2019-11-16 11:34 | NUR ---
SIMEON [address] FERNANDEZ Addendum: 11/16/19 at 1135 by SHIVANI HUMPHREY RT Amended: Links added.
[2019-11-16] MEDS: MORPHINE SULFATE INJ 2 MG/ML DISP.SYRIN IV PRN (17:07)
[2019-11-16] MEDS: MICAFUNGIN SODIUM 100 MG in IV NS 0.9% 100 ML IV SCH (17:08)
--- NOTE | 2019-11-16 18:19 | NUR ---
RN CLOSING NOTES NO SIGNIFICANT CHANGE NOTED. TRACH IN PLACE. NO RESPIRATORY DISTRESS NOTED. HOB ELEVATED. REMAINS ON JANAE DRIP, KEPT SBP > 90MMHG. KEPT CLEAN AND DRY. TX PROVIDED ORDERED. REPOSITIONED Q2. BLE ELEVATED. WILL ENDORSE FOR CONTINUITY OF CARE
--- NOTE | 2019-11-16 19:30 | NUR ---
REGISTERED RADIOGRAPHER INITIAL SHIFT NOTES RECEIVED PATIENT IN BED, ASLEEP, EYES CLOSED. PERIORBITAL EDEMA RESOLVED, ALTHOUGH TRACE CREPITUS STILL NOTED IN NECK. CREPITUS ALSO PRESENT IN CHEST, ABDOMEN AND RIGHT ARM. TRACH MIDLINE AND INTACT, ON MECHANICAL VENTILATION, SETTINGS PRESCRIBED, TOLERATING WELL, NO S/S OF RESPIRATORY DISTRESS. PATIENT OBTUNDED, UNABLE TO COMMUNICATE WITH STAFF, MINIMAL REACTION TO PAINFUL/TACTILE STIMULI. PATIENT ON BEDSIDE TELEMETRY MONITORING, SHOWING SINUS TACHYCARDIA, HR CURRENTLY 135 BPM, BP BORDERLINE, CURRENTLY ON NEOSYNEPHRINE DRIP NEAR MAX RATE. WILL MONITOR CLOSELY AND TITRATE DRIPS NEEDED
--- NOTE | 2019-11-16 19:48 | NUR ---
PT RECEIVED TRACHED PORT[place] 7 ON MECHANICAL VENTILATION WITH NOTED SETTINGS. SX DONE, TRACH SECURED AND PATENT. ALARMS ON AND AUDIBLE. CONT. PULSE OX CONNECTED. NO RESPIRATORY DISTRESS NOTED AT THIS TIME. WILL CONTINUE TO MONITOR T/O SHIFT.
--- NOTE | 2019-11-16 20:00 | NUR ---
BULK SEALER OPERATOR NOTES NEOSYNEPHRINE DRIP AT MAXIMUM RATE, BP 78/53. 2ND PRESSOR LEVOPHED INITIATED VIA RIGHT UPPER ARM PICC. WILL MONITOR AND TITRATE ACCORDINGLY
[2019-11-16] MEDS: Z GUARD REMEDY 2 OZ OINT TP PRN (21:24)
[2019-11-17] VITALS (28 sets, daily range): BP systolic 37–118; BP diastolic 27–62
[2019-11-17] MEDS: METOCLOPRAMIDE HCL 10 MG TABLET PO SCH (00:35)
[2019-11-17] MEDS: BLOOD SUGAR DIAGNOSTIC 1 EACH STRIP IN SCH (00:35)
[2019-11-17] MEDS: PHENYLEPHRINE 50 MG in IV NS 0.9% 245 ML IV PRN (01:28)
--- NOTE | 2019-11-17 01:34 | NUR ---
CURTAIN DRIER NOTES PATIENT ON MECHANICAL VENTILATION VIA TRACH, FIO2 @ 80%. SPO2 NOTED TO DROP TO THE 80s, RT VERONICA MADE AWARE FIO2 TITRATED UP TO 100%, SPO2 NOTED TO INCREASE TO 98%. WILL MONITOR CLOSELY
[2019-11-17] MEDS: VANCOMYCIN 0.75 GM in IV D5W 250 ML IV SCH (01:39)
[2019-11-17 04:15] LABS: BASOPHILS % (AUTO) 0.1 % (0.0-2.0); HEMATOCRIT 26 % (39-51); HEMOGLOBIN 8.2 g/dL (13.5-17.5); LYMPHOCYTES # (AUTO) 0.7 /CMM (0.8-4.8); LYMPHOCYTES % (AUTO) 1.7 % (20.0-44.0); MEAN CORPUSCULAR HGB CONC 32 g/dl (31.0-36.0); MEAN CORPUSCULAR VOLUME 89 fL (80-96); MONOCYTES # (AUTO) 0.9 /CMM (0.1-1.30); MONOCYTES % (AUTO) 2.3 % (2.0-12.0); NEUTROPHILS # (AUTO) 37.2 /CMM (1.8-8.9); NEUTROPHILS % (AUTO) 95.9 % (43.0-81.0); PLATELET COUNT (AUTO) 489 /CMM (150-450); RED BLOOD CELL COUNT(AUTO) 2.88 MIL/uL (4.5-6.0)
[2019-11-17 04:37] LABS: CALCIUM, SERUM 8.1 mg/dL (8.5-10.1); CREATININE 0.5 mg/dL (0.6-1.3); PHOSPHORUS 3.7 mg/dL (2.5-4.9); POTASSIUM 3.3 mmol/L (3.5-5.1)
[2019-11-17 04:39] LABS: WHITE BLOOD COUNT (AUTO) 38.8 K/uL (4.3-11.0)
[2019-11-17] MEDS: ACETAMINOPHEN 650 MG/20.3 ML UDC NG PRN (04:53)
[2019-11-17] MEDS: MEROPENEM 500 MG in IV NS 0.9% 50 ML IV SCH (04:53)
[2019-11-17 05:21] LABS: LYMPHOCYTES % (MANUAL) 1 % (16-48); MONOCYTES % (MANUAL) 1 % (0-11.0)
[2019-11-17 05:22] LABS: BAND % (MANUAL) 23 % (0.0-5.0); NEUTROPHILS % (MANUAL) 75 (42-76)
--- NOTE | 2019-11-17 05:57 | NUR ---
PILL MACHINE OPERATOR NOTES - EXPIRATION 05 PATIENT'S HR NOTED TO DROP TO THE 30s FROM 150s, THEN WENT INTO ASYSTOLE, WITNESSED CARDIOPULMONARY ARREST. ACLS PROTOCOL INITIATED, CPR STARTED, CODE BLUE CALLED. SEE CODE BLUE FORM 0614 PATIENT AFTER 5 ROUNDS OF EPI, ROSC NOT OBTAINED. CALLED AND SPOKE TO FAMILY MEMBER, BROTHER, KIA GIRON [phone]. PER MACK, THE FAMILY IS ON THE WAY. TANK CALIBRATOR JUAN PRESENT AT TIME OF , ADMITTING NOTIFIED, SPOKE TO SHEA. MADY BRIZUELA NP NOTFIED. [facility] CALLED, SPOKE TO VIDHYA, CASE # [id number] POST MORTEM CARE RENDERED, TRACH & PICC REMOVED. AWAITING FAMILY VISIT
--- NOTE | 2019-11-17 06:45 | NUR ---
LITHOGRAPHIC STRIPPER NOTES - VISITORS 4 FAMILY MEMBERS ARRIVED TO VISIT PATIENT'S REMAINS. ALL QUESTIONS ANSWERED ABLE.
[2019-11-17] MEDS ORDERED: EPINEPHRINE (1:10,000) SYRINGE 1 MG/10 ML DISP.SYRIN IVP ONE (08:33)
[2019-11-17] MEDS ORDERED: CALCIUM CHLORIDE 1,000 MG/10 ML DISP.SYRIN IV ONE (08:33)
[2019-11-17] MEDS ORDERED: FEE EMEERGENCY 1 MIN EA MC ONE (08:33)
== END 2019-11-17 08:34 | disposition expired | DRG 720 ==
LOC: ER 13:01 → TELE-TD 15:53 → ICU 17:21 → TELE-TD 10-21 11:00 → TELE1 10-22 07:33 → TELE-TD 11-05 17:03 → ICU 11-05 19:17 → TELE 11-11 19:54 → ICU 11-14 03:38
PROVIDERS: ADMIT Student in an Organized Health Care Education/Training Program
PROC: 5A1955Z Respiratory Ventilation, Greater than 96 Consecutive Hours (ICD-10-PCS; principal; 2019-10-19)
PROC: 0W9930Z Drainage of Right Pleural Cavity with Drainage Device, Percutaneous Approach (ICD-10-PCS; 2019-10-20)
PROC: 05HY33Z Insertion of Infusion Device into Upper Vein, Percutaneous Approach (ICD-10-PCS; 2019-10-23)
PROC: 05HY33Z Insertion of Infusion Device into Upper Vein, Percutaneous Approach (ICD-10-PCS; 2019-10-28)
PROC: 30233N1 Transfusion of Nonautologous Red Blood Cells into Peripheral Vein, Percutaneous Approach (ICD-10-PCS; 2019-11-05)
DX: A41.9 Sepsis, unspecified organism (principal); I21.A1 Myocardial infarction type 2; J96.21 Acute and chronic respiratory failure with hypoxia; R65.21 Severe sepsis with septic shock; E43 Unspecified severe protein-calorie malnutrition; J85.2 Abscess of lung without pneumonia; J90 Pleural effusion, not elsewhere classified; G93.40 Encephalopathy, unspecified; Z99.11 Dependence on respirator [ventilator] status; T79.7XXA Traumatic subcutaneous emphysema, initial encounter; G71.00 Muscular dystrophy, unspecified; R53.2 Functional quadriplegia; E87.0 Hyperosmolality and hypernatremia; D68.59 Other primary thrombophilia; E87.1 Hypo-osmolality and hyponatremia; J95.01 Hemorrhage from tracheostomy stoma; Y83.9 Surgical procedure, unspecified as the cause of abnormal reaction of the patient, or of later complication, without mention of misadventure at the time of the procedure; E86.0 Dehydration; Y92.89 Other specified places as the place of occurrence of the external cause; J93.9 Pneumothorax, unspecified; Z86.718 Personal history of other venous thrombosis and embolism; Z79.01 Long term (current) use of anticoagulants; Z79.51 Long term (current) use of inhaled steroids; Z79.899 Other long term (current) drug therapy; Z87.440 Personal history of urinary (tract) infections; Y95 Nosocomial condition; K21.9 Gastro-esophageal reflux disease without esophagitis; X58.XXXA Exposure to other specified factors, initial encounter; B96.89 Other specified bacterial agents as the cause of diseases classified elsewhere; I25.2 Old myocardial infarction; E87.6 Hypokalemia; E87.5 Hyperkalemia; E83.42 Hypomagnesemia; E83.39 Other disorders of phosphorus metabolism; D64.9 Anemia, unspecified; K94.23 Gastrostomy malfunction; Y83.3 Surgical operation with formation of external stoma as the cause of abnormal reaction of the patient, or of later complication, without mention of misadventure at the time of the procedure; D47.3 Essential (hemorrhagic) thrombocythemia; R74.0 Nonspecific elevation of levels of transaminase and lactic acid dehydrogenase [LDH]; B37.49 Other urogenital candidiasis; N17.9 Acute kidney failure, unspecified; R13.10 Dysphagia, unspecified; S31.30XA Unspecified open wound of scrotum and testes, initial encounter; Y92.9 Unspecified place or not applicable; L89.156 Pressure-induced deep tissue damage of sacral region; L89.316 Pressure-induced deep tissue damage of right buttock; L89.220 Pressure ulcer of left hip, unstageable; L89.320 Pressure ulcer of left buttock, unstageable
CPT/HCPCS: 31720; 36410; 36415; 36600; 70450-TC; 71045-TC; 71250-TC; 71260-TC; 80048-TC; 80053-TC; 80076-TC; 80202-TC; 81000-TC; 82272-TC; 82436-TC; 82533; 82728-TC; 82803-TC; 82962-TC; 83540-TC; 83605-TC; 83615-TC; 83735-TC; 83935-TC; 84100-TC; 84133-TC; 84300-TC; 84439-TC; 84443-TC; 84484-TC; 85025-TC; 85378-TC; 85730-TC; 86140-TC; 86850-TC; 86921-TC; 87040-TC; 87070-TC; 87081-TC; 87086-TC; 87186-TC; 89051-TC; 93307-TC; 93970-TC; 93971-TC; 94002-TC; 94003-TC; 94760-TC; 94762-TC; 94799-TC; 99082-TC; A4216; A4217; A4623; A4624; A6253; A6403; A7526; C1751; G0378; J0171; J0692; J1120; J1644; J1650; J1720; J1815; J2060; J2185; J2248; J2270; J2370; J2543; J3370; J3475; J3480; J3490; J7030; J7040; J7042; J7050; J7060; J8597; P9016-BL; Q0162; Q9967